=== PATIENT | female | born 1960 | race Caucasian/White ===

== ENCOUNTER 2024-11-21 12:17 | Outpatient (CLI) | payer OTHER, SELFPAY ==
--- OUTSIDE RECORDS SUMMARY | 2024-11-21 13:48 | XMS_ITS | Encounter Summary ---
Author Organization [facility] Address [address] [place] [address] Care Team Providers Care Cellophane Casting Machine Repairer Name Role Phone Justin Jacinto MD Primary Care Provider [phone] Justin Jacinto MD Primary Care Provider [phone] Justin Jacinto MD Primary Care Provider [phone] Mirella Strickland MD Primary Care Provide r Justin Kessler Primary Care Provider [phone] Miscellaneous, Not In File Unavailable Unava ilable Encounter Details Date Type Department Care Team (Late st Contact Info) Description 05/14/2011 Orders Only [facility] [place] Health Information Management [address] [place] [address] Justin Jacinto MD [address] [place] [address] [place] [address] Social History Tobacco Use Types Packs/Day Years Used Date Smoking Tobacco: Never Assessed Comments Unknown Sex and Gender Information Value Date Recorded Sex Assigned at Not on file 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 Gender Identity Not on file Sexual Orientation Not on file documented as of this encounter Plan of Treatment Not on file documented as of this encounter Procedures Procedure Name Priority Date/Time Associated Diagnosis Comments COLONOSCOPY Routine 05/14/2011 documented in this encounter Results * Colonoscopy (05/14/2011) Anatomical Region Laterality Modality Other us Historical Provider ENDOSCOPY PROCEDURES Munira l Result documented in this encounter Visit Diagnoses Not on filedocumented in this encounter Additional Health Concerns Infection Onset Date Last Indicated Resolved Time COVID: Suspected 03/19/2023 03/19/2023 03/19/2023 6:36 PM CDT documented as of this encounter Care Teams Cellophane Casting Machine Repairer Relationship Specialty Start Date End Date Justin Jacinto MD PCP - General 09/03/16 12/09/21 Justin Jacinto MD PCP - General 07/08/06 09/02/16 Justin Jacinto MD [address] [place] [address] PCP - General 12/10/21 12/22/21 Mirella Strickland MD [address] [facility] [place] [address] PCP - General Family Medicine 12/23/21 03/16/23 Justin Kessler PA [address] [place] [address] PCP - General Family Practice 03/17/23 Miscellaneous, Not In File 10/20/24 documented as of this encounter
--- OUTSIDE RECORDS SUMMARY | 2024-11-21 13:48 | XMS_ITS | Clinical Summary ---
Author Organization [facility] Address [address] [place] [address] Phone Care Team Providers Care Spanner Operator Name Role Phone Justin Jacinto MD Primary Care Provider [phone] Allergies No known active allergies Medications otherIndications :phyzix multi vitamin by Other route. Active Probiotic Product (PROBIOTIC DAILY PO) Take by mouth daily. Active AZO-CRANBERRY PO Take by mouth as needed. Active Calcium Carbonate Antacid (CALCIUM CARBONATE PO) Take 200 Units by mouth daily. Active Cholecalciferol (VITAMIN D3 PO) Take by mouth. Active Cyanocobalamin (B-12 PO) Take by mouth. Active famotidine (PEPCID) 20 MG Tablet Take 40 mg by mouth daily. Active sertraline (ZOLOFT) 100 MG Tablet daily. 04/09/2021 Active methylphenidate (RITALIN) 5 MG Tablet Take 5 mg by mouth 2 times daily. 12/23/2021 Active omeprazole (PriLOSEC) 20 MG CAPSULE DELAYED RELEASEIndicatio ns:Gastroesophag eal reflux disease, unspecified whether esophagitis present TAKE 1 CAPSULE BY MOUTH 2 TIMES DAILY. TAKE 30 MINUTES BEFORE A MEAL WITH PROTEIN. 180 Capsule 04/22/2022 Active Active Problems Problem Noted Date Diagnosed Date Gastroesophageal reflux disease 05/25/2021 Alternating constipation and diarrhea 05/25/2021 Diverticulosis 05/25/2021 Immunizations Immunization Administration Dates Next Due Influenza Vaccine, Quadrivalent, PF 04/06,05/27/2020,03/05/2019,2016 Influenza, recombinant, trivalent, PF 04/30/2014 TD VACCINE 08/14/1996 Family History Medical History Relation Name Comments Diabetes Brother Hypertension Brother Hypertension Father Cancer Maternal Aunt breast Diabetes Mother Hypertension Mother Cancer Sister breast Relation Name Status Comments Brother Father Alive Maternal Aunt Mother Sister Social History Tobacco Use Types Packs/Day Years Used Date Smoking Tobacco: Former Cigarettes Q uit: 10/20/1970 Smokeless Tobacco: Never Tobacco Cessation:Counseling Given: No Comments:only smoked a few years mild Alcohol Use Standard Drinks/Week Comments Yes 0 (1 standard drink = 0.6 oz pur e alcohol) Occassional Sexually Active Control Partners Comments Not Currently Comments No Sex and Gender Information Value Date Recorded Sex Assigned at Not on file Legal Sex Female 7:32 PM CDT Gender Identity Not on file Sexual Orientation Not on file Occupation Industry Job Start Date Job End Date [employer] Not on file Not on file Not on file Last Filed Vital Signs Vital Sign Reading Time Taken Comments Blood Pressure 120/66 03/24/2022 2:52 PM CDT Pulse 81 03/24/2022 2:52 PM CDT Temperature 37.3 C (99.1 F) 03/24/2022 2:52 PM CDT Respiratory Rate 20 03/24/2022 2:52 PM CDT Oxygen Saturation 98% 03/24/2022 2:52 PM CDT Inhaled Oxygen Concentration - - Weight 63 kg (139 lb) 03/24/2022 2:52 PM CDT Height 160 cm (5' 3) 07/10/2021 11: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 Body Mass Index 24.62 07/10/2021 11: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 Plan of Treatment Health Maintenance Due Date Last Done Comments Hepatitis C Virus (HCV) Screening 1960 TdaP Immunization 1960 Cologuard 2005 Pneumococcal Immunization (50+ years) (1 of 1 - PCV) 2010 Zoster Immunization (1 of 2) 2010 Immunochemical Fecal Occult Blood 06/11/2020 06/11/2019 SARS-COV-2 Immunization ( season) 2024 01/26/2021, 01/08/2021 Influenza Immunization (Season Ended) 2025 04/20/2021, 05/27/2020, 03/05/2019, Additional history exists Colonoscopy 07/27/2031 07/27/2021, 10/27/2017 Colorectal Cancer Screening 07/27/2031 Respiratory Syncytial Virus (RSV) Immunization (Adult) (1 - 1-dose 75+ series) 09/17/2035 DTaP/Tdap/Td Immunization Discontinued 08/14/1996 Cervical Cancer Screening (CCS) Discontinued Pap Smear Discontinued 06/11/2019 HPV/Cotest Discontinued Hepatitis B Immunization Aged Out No longer eligible based on patient's age to complete this topic Human Papillomavirus (HPV) Immunization Aged Out No longer eligible based on patient's age to complete this topic Meningococcal Immunization (ACWY) Aged Out No longer eligible based on patient's age to complete this topic Rotavirus Immunization Aged Out No lo nger eligible based on patient's age to complete this topic Insurance [facility] Care Teams Spanner Operator Relationship Specialty Start Date End Date Justin Jacinto MD [address] [place] [address] PCP - General Internal Medicine 10/27/17
--- OUTSIDE RECORDS SUMMARY | 2024-11-21 13:48 | XMS_ITS | Encounter Summary ---
Author Organization [facility] Address [address] [place] [address] Care Team Providers Care Principal Ios Developer Name Role Phone Justin Jacinto MD Primary Care Provider [phone] Justin Jacinto MD Primary Care Provider [phone] Mirella Strickland MD Primary Care Provide r Justin Kessler Primary Care Provider Miscellaneous, Not In File Unavailable Unava ilable Encounter Details Date Type Department Care Team (Late st Contact Info) Description 11/16/2019 Telephone [facility] [address] [place] [id number] Apolonia Crawford, RT Social History Tobacco Use Types Packs/Day Years Used Date Smoking Tobacco: Never Smokeless Tobacco: Never Alcohol Use Standard Drinks/Week Comments Yes 0 (1 standard drink = 0.6 oz pur e alcohol) PHQ-2 Answer Date Recorded PHQ-2 Score 0 01/26/2019 Comments No Sex and Gender Information Value Date Recorded Sex Assigned at Not on file 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 Gender Identity Not on file Sexual Orientation Not on file documented as of this encounter Plan of Treatment Not on file documented as of this encounter Visit Diagnoses Not on filedocumented in this encounter Additional Health Concerns Infection Onset Date Last Indicated Resolved Time COVID: Suspected 03/19/2023 03/19/2023 03/19/2023 6:36 PM CDT documented as of this encounter Care Teams Principal Ios Developer Relationship Specialty Start Date End Date Justin Jacinto MD PCP - General 09/03/16 12/09/21 Justin Jacinto MD [address] [address] [place] [address] PCP - General 12/10/21 12/22/21 Mirella Strickland MD [address] [facility] [place] [address] PCP - General Family Medicine 12/23/21 03/16/23 Justin Kessler PA [address] [place] [address] PCP - General Family Practice 03/17/23 Miscellaneous, Not In File 10/20/24 documented as of this encounter
--- OUTSIDE RECORDS SUMMARY | 2024-11-21 13:48 | XMS_ITS | Encounter Summary ---
Author Organization [facility] Address [address] [place] [address] Care Team Providers Care Safe Technician Name Role Phone Justin Kessler Primary Care Provider [phone] Miscellaneous, Not In File Unavailable Unava ilable Encounter Details Date Type Department Care Team (Late st Contact Info) Description 11/21/2024 Telephone [facility] [address] [place] [address] Mariela Martin Social History Tobacco Use Types Packs/Day Years Used Date Smoking Tobacco: Never Smokeless Tobacco: Never Alcohol Use Standard Drinks/Week Comments Yes 0 (1 standard drink = 0.6 oz pur e alcohol) occasional AUDIT-C Answer Date Recorded Q1: How often do you have a drink containing alc ohol? Monthly or less 03/28/2023 Average Number of Drinks Not on file 023 Frequency of Binge Drinking Not on file 03/07 PHQ-2 Answer Date Recorded PHQ-2 Total Score (If total score is 3 or more points, staff should administer the PHQ-9) 0 01/27/2022 Personal Safety Answer Date Recorded Have you ever been in or are you currently in a harmful physical or emotional relationship or is someone making you feel afraid or unsafe? 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 documented in this encounter Plan of Treatment Not on file documented as of this encounter Visit Diagnoses Not on filedocumented in this encounter Care Teams Safe Technician Relationship Specialty Start Date End Date Justin Kessler PA [address] [place] [address] PCP - General Family Practice 03/17/23 Miscellaneous, Not In File 10/20/24 documented as of this encounter
--- OUTSIDE RECORDS SUMMARY | 2024-11-21 13:48 | XMS_ITS | Data Portability ---
Author Organization [facility] Address [address] [place] [address] Care Team Providers Care Paid Search Analyst Name Role Phone DAVIE KESSLER Primary Care Provider Assessment No assessment recorded. Plan of Treatment Reminders Order Date Submit Date Provider Last Modified By Organization Details Last Modified Time Details Appointments None recorded. Lab urinalysis, dipstick 2024 025 [place] In-Office Order, Internal Use Only DO Not Attach Compendium DO Not Attach Compendium, Do Not Delete/merge, [id number] 15:47:34 influenza virus A + B + SARS-CoV-2 (COVID19) Ag panel, rapid IA, upper respiratory specimen 2023 024 [place] In-Office Order, Internal Use Only DO Not Attach Compendium DO Not Attach Compendium, Do Not Delete/merge, [id number] 14:29:13 rapid strep group A, throat 2023 024 [facility] In-Office Order, Internal Use Only DO Not Attach Compendium DO Not Attach Compendium, Do Not Delete/merge, [id number] 14:25:50 Referral None recorded. Procedures None recorded. Surgeries None recorded. Imaging None recorded. Medication Orders Macrobid 100 mg capsule 2024 025 [facility] [id number] In [facility], [address], [place], [place], [id number], 18:28:50 neomycin-po lymyxin-hyd rocort 3.5 mg-10,000 unit/mL-1 % ear drops,susp 2024 025 HOLLI [place] [address] In [facility], [address] [place], [place], [id number], 5 18:28:44 azithromyci n 500 mg tablet 2023 025 HOLLI [place] [address] In [facility], [address] [place], [place], [id number], 5 15:19:58 amoxicillin 875 mg tablet 2023 024 ludy QUEVEDO [address] In [facility], [address], [place], [place], [id number], 4 14:04:39 Patient TargetsNo targets recorded. Patient Instructions Encounter Date Encounter Id Patient Instructions Last Modified By Organization Details Last Modified Time 04/17/2024 [id number] A healthy lifestyle: care instructions jnanney Not available 04/17/2024 19:17:37 06/05/2024 [id number] sore throat: car e instructions jnanney Not available 06/05/2024 14:25:48 A healthy lifestyle: care instructions jnanney Not available 06/05/2024 14:25:49 Reason for Referral None Reported. Results Created Date Observation Date Name Description Value Unit Range Abnormal Flag Note LastModifiedBy Organization Detail LastModifiedTime 06/05/2006/05/2024 influ indra virus A + B + SARS- CoV-2 (COVI D19) Ag panel , rapid IA, upper respi rator y speci men Flu A negati ve Not Available In-Office Order Internal Use Only DO Not Attach Compendium DO Not Attach Compendium, Do Not Delete/merge, [id number] 06/05/2024 14:04:59 06/05/20 24 06/05/2024 influ indra virus A + B + SARS- CoV-2 (COVI D19) Ag panel , rapid IA, upper respi rator y speci men Flu B negati ve Not Available In-Office Order Internal Use Only DO Not Attach Compendium DO Not Attach Compendium, Do Not Delete/merge, [id number] 06/05/2024 14:04:59 06/05/20 24 06/05/2024 influ indra virus A + B + SARS- CoV-2 (COVI D19) Ag panel , rapid IA, upper respi rator y speci men Rapid SARS CoV 2 Ag, QL IA, respiratory specimen negati ve Not Available In-Office Order Internal Use Only DO Not Attach Compendium DO Not Attach Compendium, Do Not Delete/merge, [id number] 06/05/2024 14:04:59 06/05/20 24 06/05/2024 rapid strep group A, throa t Strep negati ve Not Available In-Office Order Internal Use Only DO Not Attach Compendium DO Not Attach Compendium, Do Not Delete/merge, [id number] 06/05/2024 14:05:13 09/04/19 25 09/03/2024 urina lysis , dipst ick Leukocytes Negati ve Not Available In-Office Order Internal Use Only DO Not Attach Compendium DO Not Attach Compendium, Do Not Delete/merge, [id number] 09/03/2024 15:32:31 09/04/19 25 09/03/2024 urina lysis , dipst ick Nitrite negati ve Not Available In-Office Order Internal Use Only DO Not Attach Compendium DO Not Attach Compendium, Do Not Delete/merge, [id number] 09/03/2024 15:32:31 09/04/19 25 09/03/2024 urina lysis , dipst ick Urobilinogen .2 Not Available In-Of fice Order Internal Use Only DO Not Attach Compendium DO Not Attach Compendium, Do Not Delete/merge, [id number] 09/03/2024 15:32:31 09/04/19 25 09/03/2024 urina lysis , dipst ick Protein Negati ve Not Available In-Office Order Internal Use Only DO Not Attach Compendium DO Not Attach Compendium, Do Not Delete/merge, [id number] 09/03/2024 15:32:31 09/04/19 25 09/03/2024 urina lysis , dipst ick pH 6.0 Not Available In-Office Order Internal Use Only DO Not Attach Compendium DO Not Attach Compendium, Do Not Delete/merge, 09/03/2024 15:32:31 09/04/1909/03/2024 urina lysis , dipst ick Blood Small Not Available In-Office Order Internal Use Only DO Not Attach Compendium DO Not Attach Compendium, Do Not Delete/merge, [facility] 09/03/2024 15:32:31 09/04/1909/03/2024 urina lysis , dipst ick Specific [place] 1.030 Not Available In-Off ice Order Internal Use Only DO Not Attach Compendium DO Not Attach Compendium, Do Not Delete/merge, 09/03/2024 15:32:09/04/1909/03/2024 urina lysis , dipst ick Ketone Negati ve Not Available In-Office Order Internal Use Only DO Not Attach Compendium DO Not Attach Compendium, Do Not Delete/merge, 09/03/2024 15:32:09/04/19 25 09/03/2024 urina lysis , dipst ick Bilirubin Small Not Available In-Offic e Order Internal Use Only DO Not Attach Compendium DO Not Attach Compendium, Do Not Delete/merge, 09/03/2024 15:32:09/04/1909/03/2024 urina lysis , dipst ick Glucose Negati ve Not Available In-Office Order Internal Use Only DO Not Attach Compendium DO Not Attach Compendium, Do Not Delete/merge, [id number] 09/03/2024 15:32:31 09/04/1909/03/2024 urina lysis , dipst ick Appearance Clear Not Available In-Offi ce Order Internal Use Only DO Not Attach Compendium DO Not Attach Compendium, Do Not Delete/merge, 09/03/2024 15:32:09/04/19 25 09/03/2024 urina lysis , dipst ick Color Yellow Not Available In-Office Order Internal Use Only DO Not Attach Compendium DO Not Attach Compendium, Do Not Delete/merge, 09/03/2024 15:32:09/18/19 25 09/17/2024 MAMMO , scree sanjay, digit al, bilat eral No observ ation record ed. [address], [place], [address], 09/17/2024 16:31:03 10/20/19 25 10/19/2024 CT, cervi mal spine , w/o contr ast No observ ation record ed. [address] , [place], [address], 10/22/2024 08:57:11 10/20/19 25 10/19/2024 CT, chest + abdom en + pelvi s, w/ contr ast No observ ation record ed. [address] , [place], [address], 10/22/2024 08:57:36 10/20/19 25 10/19/2024 CT, head, w/o contr ast No observ ation record ed. [address] , [place], [address], 10/22/2024 08:58:34 10/21/19 25 10/20/2024 CT, head, w/o contr ast No observ ation record ed. [address], [place], [address], 10/22/2024 09:07:12 10/21/19 25 10/20/2024 XR, shoul juan No observ ation record ed. [address], [place], [address], 10/22/2024 09:07:35 10/21/19 25 10/20/2024 XR, shoul juan No observ ation record ed. [address], [place], [address], 10/22/2024 09:07:49 10/23/19 25 10/19/2024 elect delfino merlos am, routi ne ECG, 12 leads min No observ ation record ed. [email or web address] [address] [place], [address], 10/22/2024 09:08:05 Result Notes None recorded. Problems No Known Problems Procedures Surgical History Date Name Laterality Status Provider Name and Address Organization Details Recorded Time 08/10/19 23 Date of Last Mammogram completed Lisette Mirza MA [facility] 11/15/2023 10:48:22 07/12/19 23 Date of Last Pap Smear completed RASTA Macdonald [facility] 07/12/2022 15:22:59 Tubal Ligation completed Latoya Taylor MA [facility] 04/05/2022 10:06:32 laparoscopy completed Latoya Taylor MA [facility] 04/05/2022 10:06:54 tonsillectomy completed Latoya Taylor MA [facility] 04/05/2022 10:07:04 cholecystectomy completed Latoya Taylor MA [facility] 04/05/2022 10:07:16 Imaging Results None recorded. Procedure Notes None recorded. Medical Equipment None Reported. Allergies No known drug allergies Medications Name Sig Start Date Stop Date Status Note LastModified by Organization Details LastModified Time celecoxib 200 mg capsule TAKE 1 CAPSULE BY MOUTH EVERY DAY 11/14 completed Not Available Not Available Not Available naproxen 375 mg tablet TAKE 1 TABLET BY MOUTH EVERY 12 HOURS NEEDED FOR PAIN 01/22 completed Not Available Not Available Not Available levetiracet am 500 mg tablet Take 1 tablet twice a day by oral route. 11/05 completed Not Available Not Available Not Available hydrocodone 5 mg-acetamin ophen 325 mg tablet TAKE 1 TABLET BY MOUTH EVERY 6 HOURS NEEDED FOR PAIN 03/05 completed Not Available Not Available Not Available famotidine 40 mg tablet TAKE 1 TABLET BY MOUTH EVERY DAY AT NIGHT 04/05 completed Not Available Not Available Not Available methylpheni date 5 mg tablet Take 1 tablet twice a day by oral route. active Not Available Not Available No t Available alendronate 70 mg tablet TAKE ONE TABLET BY MOUTH ONCE WEEKLY ON AN EMPTY STOMACH. SIT UP FOR 2 HOURS AFTER DOSING 04/05 completed Not Available Not Available Not Available sertraline 100 mg tablet TAKE ONE AND ONE-HALF (1 AND 1/2) TABLETS BY MOUTH ONCE DAILY FOR 90 DAYS active Not Available Not Available No t Available penicillin V potassium 500 mg tablet TAKE 1 TABLET BY MOUTH 4 TIMES A DAY 11/14 completed Not Available Not Available Not Available omeprazole 40 mg capsule,del ayed release TAKE 1 CAPSULE BY MOUTH EVERY DAY 06/22 completed Not Available Not Available Not Available amoxicillin 875 mg tablet TAKE 1 TABLET BY MOUTH EVERY 12 HOURS FOR 10 DAYS 06/05 completed Not Available Not Available Not Available dicyclomine 20 mg tablet TAKE 1 TABLET BY MOUTH 4 TIMES A DAY. 04/05 completed Not Available Not Available Not Available baclofen 10 mg tablet 11/14 completed Not Available Not Available Not Available cephalexin 500 mg capsule TAKE 1 CAPSULE BY MOUTH TWICE A DAY FOR 10 DAYS 04/05 completed Not Available Not Available Not Available pantoprazol e 40 mg tablet,kait yed release TAKE 1 TABLET BY MOUTH EVERY DAY 03/05 completed Not Available Not Available Not Available clotrimazol e 1 % topical solution FOR FUNGAL EXTERNAL OTITIS PUT 4 DROPS IN EACH EAR CANAL WITH EAR UP TOWARDS CEILING TWICE A DAY 10/23 completed Not Available Not Available Not Available omeprazole 20 mg capsule,del ayed release TAKE 1 CAPSULE BY MOUTH 2 TIMES DAILY. TAKE 30 MINUTES BEFORE A MEAL WITH PROTEIN. 04/05 completed Not Available Not Available Not Available amoxicillin 250 mg capsule TAKE 1 CAPSULE BY MOUTH EVERY 8 HOURS UNTIL FINISHED 11/14 completed Not Available Not Available Not Available ergocalcife rol (vitamin D2) 1,250 mcg (50,000 unit) capsule TAKE 1 CAPSULE BY MOUTH EVERY WEEK active Not Available Not Available No t Available estradiol 0.01% (0.1 mg/gram) vaginal cream INSERT 1/2 GRAM VAGINALLY EVERY NIGHT AT BEDTIME 3 TIMES PER WEEK 04/05 completed Not Available Not Available Not Available sertraline 50 mg tablet Take 1 tablet every day by oral route. 06/08 completed Not Available Not Available Not Available amoxicillin 875 mg-potassiu m clavulanate 125 mg tablet TAKE 1 TABLET BY MOUTH TWICE A DAY FOR 10 DAYS 04/05 completed Not Available Not Available Not Available neomycin-po lymyxin-hyd rocort 3.5 mg-10,000 unit/mL-1 % ear drops,susp INSTILL 4 DROPS INTO AFFECTED EAR(S) 3 TIMES A DAY 10/23 completed Not Available Not Available Not Available azithromyci n 500 mg tablet TAKE 1 TABLET BY MOUTH EVERY DAY FOR 3 DAYS 09/03 completed Not Available Not Available Not Available bupropion HCl XL 300 mg 24 hr tablet, extended release TAKE 1 TABLET BY MOUTH EVERY DAY IN THE MORNING active Not Available Not Available No t Available bupropion HCl XL 150 mg 24 hr tablet, extended release TAKE 1 TABLET BY MOUTH EVERY DAY IN THE MORNING 11/14 completed Not Available Not Available Not Available nitrofurant oin monohydrate /macrocryst als 100 mg capsule TAKE 1 CAPSULE BY MOUTH EVERY 12 HOURS FOR 10 DAYS 10/23 completed Not Available Not Available Not Available ranolazine ER 500 mg tablet,exte nded release,12 hr TAKE 1 TABLET BY MOUTH TWICE A DAY 04/05 completed Not Available Not Available Not Available Suprep Bowel Prep Kit 17.5 gram-3.13 gram-1.6 gram oral solution PLEASE SEE ATTACHED FOR DETAILED DIRECTION S 04/05 completed Not Available Not Available Not Available Vitals Date Recorded Body height Body mass index (BMI) Body weight Oxygen saturation Oxygen saturation in Arterial blood by Pulse oximetry Heart rate Respiratory rate Systolic blood pressure Diastolic blood pressure Provider Name and Address Organization Details Last Updated DateTime 5 160.02 cm 26.2 kg/m2 03425.6 7 g 97 % 97 % 91 /min 16 /min 128 mm[Hg] 84 mm[Hg] Luly Hutchinson MA [facility] 5 15:21:59 Date Recorded Body height Body mass index (BMI) Body weight Oxygen saturation Oxygen saturation in Arterial blood by Pulse oximetry Heart rate Systolic blood pressure Diastolic blood pressure Provider Name and Address Organization Details Last Updated DateTime 5 160.02 cm 26.3 kg/m2 18962.4 7 g 95 % 95 % 85 /min 118 mm[Hg] 82 mm[Hg] Lisette Mirza MA [place] [facility] 5 18:33:44 Date Recorded Body height Body mass index (BMI) Body weight Oxygen saturation Oxygen saturation in Arterial blood by Pulse oximetry Heart rate Respiratory rate Systolic blood pressure Diastolic blood pressure Provider Name and Address Organization Details Last Updated DateTime 5 160.02 cm 26.3 kg/m2 17962.8 3 g 98 % 98 % 90 /min 16 /min 124 mm[Hg] 80 mm[Hg] Luly Hutchinson MA [facility] 5 16:15:42 Date Recorded Body height Body mass index (BMI) Body weight Oxygen saturation Oxygen saturation in Arterial blood by Pulse oximetry Heart rate Systolic blood pressure Diastolic blood pressure Provider Name and Address Organization Details Last Updated DateTime 4 160.02 cm 27.1 kg/m2 78031.3 3 g 97 % 97 % 113 /min 144 mm[Hg] 89 mm[Hg] Awa Solorio MA [facility] 4 19:07:05 Date Recorded Body height Body mass index (BMI) Body weight Oxygen saturation Oxygen saturation in Arterial blood by Pulse oximetry Heart rate Body temperature Systolic blood pressure Diastolic blood pressure Provider Name and Address Organization Details Last Updated DateTime 4 160.02 cm 27.4 kg/m2 64280.0 2 g 98 % 98 % 103 /min 98.5 [degF] 132 mm[Hg] 98 mm[Hg] Awa Solorio MA [facility] 4 14:07:26 Social History Question Answer Notes LastModified by Organizat ion Details LastModified Time Tobacco Smoking Status Never Smoker Latoya Taylor MA [facility] 04/05/2022 10:03:41 Are You Blind Or Do You Have Difficulty Seeing? Yes Glasses Information not available 04/05/2022 What Is Your Level Of Caffeine Consumption? Heavy Information not available 04/05/2022 Are You Deaf Or Do You Have Serious Difficulty Hearing? No Information not available 04/05/2022 What Type Of Diet Are You Following? REGULAR Information not available 04/05/2022 Are There Any Guns Present In Your Home? No Information not available 04/05/2022 What Was The Date Of Your Most Recent Tobacco Screening? 11/05/2024 [email or web address] Information not available 11/05/2024 How Many Children Do You Have? 4 Information not available 04/05/2022 What Is Your Relationship Status? Information not available 04/05/2022 Do You Use Your Seat Belt Or Car Seat Routinely? Yes Information not available 04/05/2022 Do You Have Smoke And Carbon Monoxide Detectors In Your Home? Yes Information not available 04/05/2022 Are You Passively Exposed To Smoke? No Information not available 04/05/2022 Has Tobacco Cessation Counseling Been Provided? No [email or web address] Information not available 06/22/2022 Sex: Unknown Functional Status Question Answer Note LastModified by Organizat ion Details LastModified Time Do you use any illicit or recreational drugs? No Information not available 04/05/2022 Do you or have you ever used any other forms of tobacco or nicotine? No Information not available 04/05/2022 What is your level of alcohol consumption? Occasional Information not available 04/05/2022 Are you currently employed? Yes Information not available 04/05/2022 Are you able to care for yourself? Yes Information not available 04/05/2022 What is your occupation? [employer] Information not available 04/05/2022 What is your exercise level? None Information not available 04/05/2022 Mental Status Question Answer Note LastModified by Organizat ion Details LastModified Time Do you feel stressed (tense, restless, nervous, or anxious, or unable to sleep at night)? [id number] stressed from work Information not available 04/05/2022 Family History Relationship Description Onset Age of this Age Resolved Age Notes LastModified by Organization Details LastModified Time Father No current problems or disability [email or web address] Not available 06/22 18:02:19 Mother No current problems or disability [email or web address] Not available 06/22 18:02:19 Medical History Condition Response Coronary Artery Disease N Other N High Blood Pressure N Atrial Fibrillation N Thyroid Problems N Kidney or Bladder Problems N GI Problems N Depression N COPD N Blood Clots N Skin Problems N Eating Disorder N Anemia N Heart Attack (OK) N Anxiety Disorder N Diabetes N Muscle, Joint, or Bone Problems N Seizures/Epilepsy N Acid Reflux (GERD) N Cancer N Stroke N Asthma N Allergies N ADHD N Substance Abuse N High Cholesterol N Hepatitis N Liver Disease N Schizophrenia N Headaches N Heart Failure N Osteoporosis N Gynecological History Statement/Question Response Date of Last Pap Smear 07/12/2022 Date of Last Mammogram 08/09/2022 Date of LMP Obstetrics History GPAL:G 0 P 0 0 0 0 Immunizations Vaccine Type Date Status Note Provider Nam e and Address Organization Details Recorded Time Influenza, split virus, quadrivalent, PF 9 completed Lisette Mirza [place], [place] [facility] 04/05/2022 10:36:23 Influenza, split virus, quadrivalent, PF 0 completed Lisette Mirza [place], [place] [facility] 04/05/2022 10:36:23 Influenza, split virus, quadrivalent, PF 1 completed Lisette Mir[place] [facility] 04/05/2022 10:36:23 COVID-19, mRNA, LNP-S, PF, 30 mcg/0.3 mL dose 1 completed Lisette Mir[place], [place] [facility] 04/05/2022 10:36:23 COVID-19, mRNA, LNP-S, PF, 30 mcg/0.3 mL dose 1 completed Lisette Mir[place], [place] [facility] 04/05/2022 10:36:23 zoster recombinant 5 completed Lisette Mirza [place], [place] [facility] 10/22/2024 09:23:45 Influenza, split virus, quadrivalent, PF 7 completed Not Available [facility] 11/05/2024 16:05:45 pneumococcal polysaccharide PPV23 3 completed Not Available [facility] 11/05/2024 16:05:45 Tdap 4 completed Not Available [facility] 11/05/2024 16:05:45 Influenza, split virus, quadrivalent, PF 2 completed Lisette Mirza MA null, [facility] 04/05/2022 11:30:19 Influenza, split virus, quadrivalent, PF 3 completed Awa Solorio MA null, [facility] 03/22/2023 19:36:27 Past Encounters Encounter ID Performer Location Encounter Start Date Encounter Closed Date Diagnosis/Indication Diagnosis SNOMED-CT Code Diagnosis ICD10 Code Diagnosis Note [id number] Davei Kessler PA-C [facility] [address] [place] [address] 04/05/2022 09:49:14 04/05/2022 11:19:12 Adult health examination 548299610 Z00.00 Family his tory of diabetes mellitus 481131933 Z83.3 Dysuria 10829401 R30.0 Administra tion of influenza vaccine 24290427 Z23 [id number] Davie Kessler PA-C [facility] [address] [place] [address] 06/22/2022 17:59:56 06/23/2022 15:00:20 Recurrent falls 185465369 R29.6 Attention deficit hyperactivity disorder, 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 014728582 F41.8 Overweight 376274334 E66 .3 [id number] Davie Kessler PA-C [facility] [address] [place] [address] 07/12/2022 15:12:04 07/12/2022 16:06:20 Long-term drug therapy 849497608 Z79.899 Post-acute COVID-19 1119 998484 U09.9 Attention deficit hyperactivity disorder, predominantly inattentive type 94669531 F90.0 [id number] Davie Kessler PA-C [facility] [address] [place] [address] 07/28/2022 11:50:56 07/28/2022 12:38:14 Acute maxillary sinusitis 65023898 J01.01 Overweight 722671065 E66 .3 [id number] Davie Kessler PA-C [facility] [address] [place] [address] 09/24/2022 16:27:55 09/27/2022 12:14:19 Fatigue 94466305 R53.83 Generalize d anxiety disorder 73288343 F41.1 [id number] Davie Kessler PA-C [facility] [address] [place] [address] 03/07/2023 11:59:10 03/08/2023 14:15:31 Albumin below reference range 858079811 R77.0 Increased frequency of urination 044013625 R35.0 Mixed anxi ety and depressive disorder 278655544 F41.8 [id number] Davie Kessler PA-C [facility] [address] [place] [address] 03/22/2023 18:35:36 03/29/2023 15:36:00 Costal chondritis 95178984 M94.0 Administra tion of influenza vaccine 35377298 Z23 [id number] Davie Kessler PA-C [facility] [address] [place] [address] 06/24/2023 14:53:09 06/27/2023 16:17:24 Neck pain 97838605 M54.2 Overweight 567957100 E66 .3 [id number] Davie Kessler PA-C [facility] [address] [place] [address] 07/08/2023 15:54:50 07/12/2023 14:41:53 Hypoalbuminemia 573903279 E88.09 [id number] Gary Gifford MD [facility] [address] [place] [address] 11/15/2023 10:21:11 11/16/2023 09:18:15 Closed fracture of bone of knee joint 865717214 S82.892A Overweight 687001302 E66 .3 [id number] Davie Kessler PA-C [facility] [address] [place] [address] 01/23/2024 15:24:29 01/24/2024 08:17:34 Adult attention deficit hyperactivity disorder 947708457 F90.0 Overweight 448926584 E66 .3 [id number] Davie Kessler PA-C [facility] [address] [place] [address] 03/05/2024 16:10:22 03/07/2024 15:15:31 Complex laceration of scalp 401347248 S01.01XD [id number] Gary Gifford MD [facility] [address] [place] [address] 03/26/2024 14:51:32 04/02/2024 10:49:25 Laceration of forehead 641756577 S01.81XD sutures removed Overweight 534284890 E66 .3 [id number] Gary Gifford MD [facility] [address] [place] [address] 04/17/2024 19:02:01 04/18/2024 09:21:58 Middle ear effusion 6174076515 H74.8X1 Overweight 638022848 E66 .3 [id number] Gary Gifford MD [facility] [address] [place] [address] 06/05/2024 13:51:38 06/08/2024 10:34:43 Sore throat 157348775 J02.9 Overweight 713468771 E66 .3 Acute bron chitis with bronchospasm 95844334 J20.8 [id number] Gary Gifford MD [facility] [address] [place] [address] 09/03/2024 15:15:27 09/04/2024 08:45:48 Urinary symptoms 999413837 R30.0 Acute otitis externa 302 03467 H60.513 Body mass index 20-24 - normal 047604589 Z68.24 [id number] Gary Gifford MD [facility] [address] [place] [address] 10/23/2024 17:57:01 10/24/2024 10:42:25 Traumatic brain injury 595211737 S06.9X1A Overweight in adulthood with body mass index of 25 or more but less than 30 063983656 Z68.26 [id number] Gary Gifford MD [facility] [address] [place] [address] 11/05/2024 16:05:18 11/06/2024 10:19:01 Hemorrhage into subarachnoid space of neuraxis 527658537 I60.9 Intermittent vertigo 103 888660 R42 Overweight in adulthood with body mass index of 25 or more but less than 30 088888322 E66.3 Z68.26 Health Concerns Section Related Observation LastModified by Organization Detai ls LastModified Time None Recorded Concern Status LastModified by Organization Details LastModified Time None Recorded Advance Directives Directive None Recorded Payers Insurance Date Sequence Insurance Name Policy Number Policy Spear Covered Member ID Spear Member ID Guarantor Name 11/04/[address] [facility] [facility] ([facility]) [id number] Bouchra Phan Maximino [phone] Bouchra Stanton Notes Date Note Type Note Provider Name and Address Organization Details Recorded Time 04/17/2024 text/html rt ear pain for 2 weeks... Davie Kessler PA-C Attn: [address] [place], [address], [facility] 04/17/2024 19:18:16 06/05/2024 text/html Uri symptoms.. cough sinus etc...rash... Davie Kessler PA-C Attn: [address] [place], [address], [facility] 06/05/2024 14:28:14 09/03/2024 text/html uti symptoms..also having ear pain was diagnosed with fungal infection in ear canals..wellington dheeraj Davie Kessler PA-C Attn: [address] [place], [address], [facility] 09/03/2024 15:49:23 10/23/2024 text/html fell over the railing about 8 feet to thre floor...no memory..went to ER resulting brain bleed...has follow up with neurosurgeon..bryan s some residual dizziness... Davie Kessler PA-C Attn: [address] [place], [address], [facility] 10/23/2024 18:54:53 11/05/2024 text/html had a fall on may 15..down a stairwell..went to [place] eventually..suba rachnoid bleed ...has CT upcoming and neuro after.... Davie Kessler PA-C Attn: [address] [place], [address], [facility] 11/05/2024 16:29:37 OBGyn Episode No OBEpisode recorded.
--- OUTSIDE RECORDS SUMMARY | 2024-11-21 13:48 | XMS_ITS | Encounter Summary ---
Author Organization [facility] Address [address] [facility] [place] [address] Phone Care Team Providers Care Hole Filler Name Role Phone Justin Jacinto MD Primary Care Provider Reason for Visit * Reason Comments Medication Refill Encounter Details Date Type Department Care Team (Late st Contact Info) Description 08/15/2021 Refill [facility] - Gastroenterology - [address] [place] [id number] Christina Talbert Rohini, PAC [address] [place] [address] Medication Refill Social History Tobacco Use Types Packs/Day Years Used Date Smoking Tobacco: Former Cigarettes Q uit: 10/20/1970 Smokeless Tobacco: Never Comments:only smoked a few y ears mild Alcohol Use Standard Drinks/Week Comments Yes [...] Industry Job Start Date Job End Date [employer] Not on file Not on file Not on file COVID-19 Exposure Response Date Recorded In the last month, have you been in contact with someone who was confirmed or suspected to have Coronavirus / COVID-19? No / Unsure 07/27/2021 11:35 AM DIAL MAKER documented as of this encounter Miscellaneous Notes * Telephone Encounter - Frances Cartwright RN - 08/17/2021 1:48 PM CDT [facility] for pediatric and adult patients. documented in this encounter Plan of Treatment Not on file documented as of this encounter Visit Diagnoses Diagnosis Gastroesophageal reflux disease, unspecified whether esophagitis present documented in this encounter Additional Health Concerns Infection Onset Date Last Indicated Resolved Time COVID - 19 03/24/2022 03/24/2022 04/03/2022 12:1 6 AM CDT COVID - 19 Confirmed 03/24/2022 03/24/2022 022 12:16 AM DIAL MAKER documented as of this encounter Care Teams Hole Filler Relationship Specialty Start Date End Date Justin Jacinto MD [address] [place] [id number] PCP - General Internal Medicine 10/27/17 documented as of this encounter
--- OUTSIDE RECORDS SUMMARY | 2024-11-21 13:48 | XMS_ITS | Encounter Summary ---
Author Organization [facility] Address [address] [place] [address] Phone Care Team Providers Care Therapist Respiratory Name Role Phone Justin Jacinto MD Primary Care Provider [phone] Justin Jacinto MD Primary Care Provider [phone] Mirella Strickland MD Primary Care Provide r Justin Kessler Primary Care Provider [phone] Miscellaneous, Not In File Unavailable Unava ilable Encounter Details Date Type Department Care Team (Late st Contact Info) Description 10/04/2017 Orders Only [facility] ProviderMarco MD [facility] [place] [address] Social History Tobacco Use Types Packs/Day Years Used Date Smoking Tobacco: Never Alcohol Use Standard Drinks/Week Comments Yes 0 (1 standard drink = 0.6 oz pur e alcohol) Comments No Sex and Gender Information Value Date Recorded Sex Assigned at Not on file Legal Sex Female 4:25 PM [employer] Gender Identity Not on file Sexual Orientation Not on file documented as of this encounter Plan of Treatment Not on file documented as of this encounter Procedures Procedure Name Priority Date/Time Associated Diagnosis Comments DISCHARGE LABORATORY CUMULATIVE REPORT 10/04/2017 12:00 AM CDT documented in this encounter Results * DISCHARGE LABORATORY CUMULATIVE REPORT (10/04/2017 12:00 AM CDT) Narrative 10/04/2017 12:00 AM CDT Ordered by an unspecified provider. us Historical Provider LAB BLOOD ORDERABLES Munira l Result documented in this encounter Visit Diagnoses Not on filedocumented in this encounter Additional Health Concerns Infection Onset Date Last Indicated Resolved Time COVID: Suspected 03/19/2023 03/19/2023 03/19/2023 6:36 PM CDT documented as of this encounter Care Teams Therapist Respiratory Relationship Specialty Start Date End Date Justin Jacinto MD PCP - General 09/03/16 12/09/21 Justin Jacinto MD [address] [place] [address] PCP - General 12/10/21 12/22/21 Mirella Strickland MD [address] [place] [address] PCP - General Family Medicine 12/23/21 03/16/23 Justin Kessler PA [address] [place] [address] PCP - General Family Practice 03/17/23 Miscellaneous, Not In File 10/20/24 documented as of this encounter
--- OUTSIDE RECORDS SUMMARY | 2024-11-21 13:49 | XMS_ITS | Clinical Summary ---
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 Role Phone Justin Kessler Primary Care Provider [phone] Miscellaneous, Not In File Unavailable Unava ilable Allergies No known active allergies Medications omeprazole (PriLOSEC) 20 mg capsule Take 1 capsule (20 mg total) by mouth daily 05/25/20 21 Active calcium citrate 250 mg calcium tablet tablet Active cholecalciferol (VITAMIN D-3) 2000 unit capsule 0.5 capsules (1,000 Units total) Active vitamin K2 40 mcg tablet Take by mouth Active vitamin B complex capsule Take 1 capsule by mouth daily Active methylphenidate HCl (RITALIN) 5 mg tabletIndications :Attention-Defici t Hyperactivity Disorder Take 1 tablet (5 mg total) by mouth 2 (two) times a day 60 tablet 12/24/19 22 Active sertraline (ZOLOFT) 100 mg tablet Take 1 tablet (100 mg total) by mouth daily 30 tablet 11 04/22/[address] (PROTONIX) 40 mg EC tabletIndications :Gastroesophageal reflux disease, unspecified whether esophagitis present Take 1 tablet (40 mg total) by mouth daily Collaborating physician Manny Calle MD 30 tablet 03/19/20 23 Active baclofen (LIORESAL) 10 mg tabletIndications :Esophageal spasm Take 1 tablet (10 mg total) by mouth 3 (three) times a day Take as directed to treat esophageal spasm. Collaborating physician Manny Calle MD 30 tablet 03/19/20 Active celecoxib (CeleBREX) 200 mg capsule Take by mouth daily 03/22/20 Active acetaminophen 500 mg capsule Take 2 capsules (1,000 mg total) by mouth every 6 (six) hours as needed for pain . Do not exceed 4 grams daily. 10/21/19 Active docusate sodium (COLACE) 100 mg capsuleIndication s:constipation,St ool Softener Take 1 capsule (100 mg total) by mouth 2 (two) times a day 30 capsule 10/21/19 Active levETIRAcetam (KEPPRA) 500 mg tabletIndications :seizure prophylaxis Take 1 tablet (500 mg total) by mouth 2 (two) times a day for 7 days 13 tablet 10/21/19 Active lidocaine (LIDODERM) 5 %Indications:pain Place 1 patch on the skin daily for 12 hours Remove & discard patch within 12 hours or as directed by MD. Apply to right shoulder. 7 patch 10/21/19 Active oxyCODONE (ROXICODONE) 5 mg immediate release tabletIndications :Pain Take 1 tablet (5 mg total) by mouth every 4 (four) hours as needed for pain 15 tablet 10/21/19 Active Active Problems Problem Noted Date Diagnosed Date Subarachnoid bleed 10/20/2024 Esophageal spasm 03/19/2023 Hiatal hernia 03/19/2023 Light headed 01/27/2022 Assessment & Plan (01/27/2022 1:02 PM CDT): Worsening Orthostatics negative Recent labs unremarkable Recently seen cardio and unlikely to be cardiac in nature Likely anxiety and stress induced. Swollen finger 12/23/2021 Assessment & Plan (12/23/2021 11:10 AM CDT): Improved S/p keflex Will hold off on antibiotics as the swelling and redness improved Does not look like a foreign body is present Xray just showed some arthritis Try anti inflammatories for the discomfort rtc if worsening symptoms and can consider a second round of antibiotics Encounter for completion of form with patient Assessment & Plan (12/23/2021 11:11 AM CDT): Will complete forms for disability 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 [place] at [employer] [employer] Encounter for wellness examination 12/23/2021 Assessment & Plan (12/23/2021 11:12 AM CDT): Ordered lipid, hgb a1c, HIV, hep c, TSH, and free t4 Colonoscopy: up to date Pap smear:follows with ob Mammo: up to date F/u in 1 year for annual Dyspnea on exertion 11/30/2021 Overview (11/30/2021): Added automatically from request for surgery [id number] Assessment & Plan (01/27/2022 1:02 PM CDT): Worsening Seen by cardio and unlikely to be caused by the heart Had stress test and other imaging Chest xray ordered. If negative will consider referral to pulmonary Chest pain 11/30/2021 Overview (11/30/2021): Added automatically from request for surgery [id number] Assessment & Plan (12/23/2021 11:08 AM CDT): Likely stress induced Cardiac cath negative, echo unremarkable F/u prn and continue with sertraline for the anxiety Diverticulosis 05/25/2021 Gastroesophageal reflux disease 05/25/2021 Assessment & Plan (12/23/2021 11:07 AM CDT): Restart omeprazole F/u prn Abdominal pain 04/28/2021 Overview (04/28/2021): Added automatically from request for surgery [id number] Assessment & Plan (03/28/2023 2:57 PM CDT): Musculoskeletal pain. Varicose veins of both lower extremities 021 Age-related osteoporosis wit hout current pathological fracture 11/06/2019 Assessment & Plan (12/23/2021 11:06 AM CDT): Stable Continue with calcium and vitamin d Assessment & Plan (12/10/2021 1:19 PM CDT): Stable at this time no fractures but patient is no longer taking fosamax due to dental work and concerns for jaw ostenecrosis Taking vitamin supplement Attention deficit disorder (ADD) in adult 2019 Assessment & Plan (12/23/2021 11:06 AM CDT): Refill ritalin 5mg bid F/u prn BMI 23.0-23.9, adult 10/18/2017 Vitamin D deficiency 10/18/2017 Lumbar disc disease 10/18/2017 Osteopenia 04/27/2017 Overview (12/10/2021): Note: 5-2015 Herpes simplex 10/22/2014 Overview (12/10/2021): Note: + serology for type II Family history of malignant neoplasm of breast 0 10/12/2013 Overview (12/10/2021): Note: sister - dx in her 60's History of cervical dysplasia 10/29/2009 Resolved Problems Problem Noted Date Diagnosed Date Resolved Date Diarrhea 04/28/2021 12/10/2021 Overview (04/28/2021): Added automatically from request for surgery [id number] Other microscopic hematuria 01/12/2021 12/10/2021 Gallbladder polyp 09/25/2019 11/10/2020 Assessment & Plan (09/25/2019 12:19 PM CDT): Minimally symptomatic gallbladder polyp- discussed dietary approach. If worsening of symptoms please notify office. The procedure along with the risks, benefits, and post operative period were discussed with the patient, to which she understands. Will call patient to schedule elective surgery when able due to the hold on elective cases. Patient agrees to treatment plan. Acute suppurative otitis med ia without spontaneous rupture of ear drum 06/21/2016 02/17/20 17 Overview (09/09/2016): Acute suppurative otitis media of left ear without spontaneous rupture of tympanic membrane, recurrence not specified Viral upper respiratory tract infection 06/21/2016 02/16/2017 Overview (09/09/2016): Viral upper respiratory tract infection Acute sinusitis 10/15/2014 02/16/2017 Overview (09/09/2016): Acute sinusitis Abrasion of toe 10/15/2014 02/16/2017 Overview (09/09/2016): Toe abrasion Encounters Date Type Department Care Team Description 11/21/2024 Telephone [facility] [address] [place] [address] Mariela Martin 10/24/2024 Orders Only [facility] Neurosurgery [address] [place] [address] [place] [id number] Rosangela Barros RN Subarachnoid bleed (HCC) (Primary Dx) 10/24/2024 Telephone [facility] Scheduling [address] [place] [address] Juanita Ashley 10/19/2024 10:55 PM CDT - 10/20/2024 7:00 PM CDT Hospital Encounter [address] [phone] Mikhail Farrell MD Vellimana, MD Edwin Perez, Gary Bryant MD Subarachnoid bleed (HCC) (Primary Dx); Closed head injury, subsequent encounter Discharge Disposition: Discharge to home or self care 10/19/2024 10:07 PM CDT - 10/19/2024 11:59 PM CDT Hospital Encounter [facility], Room R Discharge Disposition: Discharge to home or self care 10/19/2024 4:47 PM CDT - 10/19/2024 10:05 PM CDT Emergency [facility] Emergency Department [address] [place] [address] Lars Watson MD Subarachnoid hemorrhage (HCC) (Primary Dx) Discharge Disposition: Discharge to a jail [facility] 10/19/2024 4:31 PM CDT - 10/19/2024 11:59 PM CDT Hospital Encounter [facility] Emergency, Room R Discharge Disposition: Discharge to home or self care from Last 3 Months Immunizations Immunization Administration Dates Next Due Influenza, Quadrivalent, Spl it, Preservative Free, Intramuscular 04/20/2021,05/27/2020,03/05/2019,05/12 Influenza, Split 06/25/2013,06/20/2012 Influenza, Trivalent, Adjuva nted, Intramuscular 04/30/2014 Influenza, Trivalent, Recomb inant, Egg Free, Preservative Free, Antibiotic Free, IM (FLUBLOK) 04/30/2014 Influenza, Unspecified 01/27/2022(Deferr ed: Patient Refused),01/08/2021(Deferred: Patient Refused),02/01/2020(Deferred: Patient Refused),05/18/2018(Deferred: Patient Refused),04/06/2018(Deferred: Patient Refused) Pfizer SARS-CoV-2 Monovalent Vaccination (12+ Yrs) PURPLE 01/26/2021,01/08/2021 Td, adsorbed 08/14/1996 Tdap 02/25/2024 Surgical History Surgery Date Site/Laterality Comments TUBAL LIGATION 06/06/1986 - 06/05/1987 Bilateral tubal ligation OTHER SURGICAL HISTORY 06/06/1976 - 06/05/1977 OVARIAN CYST: SURGERY TONSILLECTOMY Tonsillectomy OTHER SURGICAL HISTORY 06/06/2007 - 06/05/2008 varicsose vein/ viera CHOLECYSTECTOMY 12/03/2019 VEIN SURGERY OVARIAN CYST REMOVAL Medical History Medical History Date Comments Cyst of ovary OVARIAN CYST Hx Other Medical 01-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 (postoperative nausea and vomiting) GERD (gastroesophageal reflux disease) Hematuria Anxiety Chest pain Family History Medical History Relation Name Comments Prostate cancer Father Cancer -pros ochoa; Diabetes Mother Diabetes mellit us; Heart disease Mother Heart disease; Hypertension Mother Hypertension; Breast cancer Mother's Sister 1 Breast cancer Mother's Sister 2 Breast cancer Sister himanshu Relation Name Status Comments Father Mother Mother's Sister 1 Alive Mother's Sister 2 Sister himanshu Alive Social History Tobacco Use Types Packs/Day Years Used Date Smoking Tobacco: Never Smokeless Tobacco: Never Tobacco Cessation:Counseling Given: Not Answered Alcohol Use Standard Drinks/Week Comments Yes 0 [...] on file 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 Gender Identity Not on file Sexual Orientation Not on file Obstetrics History Para Term AB IAB SAB Ectopic Multiple Livin g Live Births 4 4 4 Date Outcome GA Total Labor Labor/3rd Weight Sex Type Anes PTL Sonia A1 A5 Name Clin Term Term Term Term Last Filed Vital Signs Vital Sign Reading Time Taken Comments Blood Pressure 136/71 10/20/2024 5:40 PM CDT Pulse 71 10/20/2024 5:40 PM CDT Temperature 36.6 C (97.9 F) 10/20/2024 5:40 PM CDT Respiratory Rate 16 10/20/2024 5:40 PM CDT Oxygen Saturation 92% 10/20/2024 5:40 PM CDT Inhaled Oxygen Concentration - - Weight 65.8 kg (145 lb 1 oz) 10/19/2024 11:03 PM CDT Height 160 cm (5' 2.99) 10/19/2024 11:03 PM CDT Body Mass Index 25.7 10/19/2024 11:03 PM CDT Plan of Treatment Health Maintenance Due Date Last Done Comments Cervical Cancer Screening 1960 Hepatitis B Screening 1978 Zoster Vaccine (1 of 2) 2010 Breast Cancer Screening-Mammogram 08/08/2022 08/08/2021, 07/28/2020, 07/02/2019, Additional history exists Regular Well Visit/Exam 18-64 12/23/2022 12/23/2021, 11/10/2020, 11/05/2019, Additional history exists Depression Screening 01/27/2023 01/27/2022, 12/23/2021, 12/10/2021, Additional history exists Osteoporosis Screening-Bone Density Scan 08/11/2023 08/10/2021, 07/16/2019, 10/24/2013, Additional history exists Covid-19 Vaccine ( - season) 2024 01/26/2021, 01/08/2021 Colon Cancer Screening-Colonoscopy 10/27/2024 10/27/2017, 05/14/2011, 05/14/2011 Influenza Vaccine (Season Ended) 2025 03/22/2023, 04/05/2022, 04/20/2021, Additional history exists DTaP/Tdap/Td Vaccine (2 - Td or Tdap) 02/24/2034 02/25/2024, 08/14/1996 Colon Cancer Screening-CT Colonography Discontinued 10/27/2017, 05/14/2011, 05/14/2011 Colon Cancer Screening-DNA Stool Discontinued 10/27/2017, 05/14/2011, 05/14/2011 Colon Cancer Screening-FIT Discontinued 10/27, 05/14/2011, 05/14/2011 Colon Cancer Screening-Sigmoidoscopy Discontinued 10/27/2017, 05/14/2011, 05/14/2011 Hepatitis C Screening Completed 12/28/2021, 017 Pneumococcal vaccine <65 Aged Out No longer eligible based on patient's age to complete this topic Procedures Procedure Name Priority Date/Time Associated Diagnosis Comments URINALYSIS, MICROSCOPIC ONLY STAT 10/20/2024 9:22 AM CDT URINALYSIS AND REFLEX TO MICROSCOPIC AND CULTURE STAT 10/20/2024 9:22 AM CDT B CHECK SAMPLE STAT 10/20/2024 7:21 AM CDT PA CRITICAL CARE ILL/INJURED PATIENT INIT 30-74 MIN Routine 10/20/2024 7:[address] HEAD WO CONTRAST Timed 10/20/2024 3 :59 AM CDT XR ELBOW RIGHT 3 OR MORE VIEWS ED 10/20/2024 12:20 AM CDT XR SHOULDER RIGHT 2 OR MORE VIEWS ED 10/20/2024 12:20 AM CDT EGFR STAT 10/19/2024 11:54 PM CDT DIFFERENTIAL AUTO STAT 10/19/2024 11: 54 PM CDT TYPE AND SCREEN STAT 10/19/2024 11:54 PM CDT PROTIME-INR STAT 10/19/2024 11:54 PM CDT APTT STAT 10/19/2024 11:54 PM CDT COMPREHENSIVE METABOLIC PANEL STAT 10/19/2024 11:54 PM CDT CBC WITH AUTO DIFFERENTIAL STAT 10/19/2024 11:54 PM CDT POC BLOOD GAS AND CHEMISTRIES, VENOUS Routine 10/19/2024 10:59 PM CDT PA CRITICAL CARE ILL/INJURED PATIENT INIT 30-74 MIN Routine 10/19/2024 9:[address] CHEST ABDOMEN PELVIS W CONTRAST ED 10/19/2024 7:[address] CERVICAL SPINE WO CONTRAST ED 10/19/2024 7:[address] HEAD WO CONTRAST ED 10/19/2024 7 :11 PM CDT EGFR STAT 10/19/2024 5:11 PM CDT DIFFERENTIAL AUTO STAT 10/19/2024 5:1 1 PM CDT ETHANOL STAT 10/19/2024 5:11 PM CDT COMPREHENSIVE METABOLIC PANEL STAT 10/19/2024 5:11 PM CDT CBC WITH AUTO DIFFERENTIAL STAT 10/19/2024 5:11 PM CDT ECG 12-LEAD STAT 10/19/2024 5:01 PM CDT PA CRITICAL CARE ILL/INJURED PATIENT INIT 30-74 MIN Routine 10/18/2024 7:00 AM CDT HEPATITIS C ANTIBODY Routine 12/28/2021 7:29 AM CDT Routine medical exam Need for hepatitis C screening test DEXA AXIAL SKELETON BONE DENSITY 1 OR MORE SITES Schedule Routine, Read Routine (OP Routine) 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 Age-related osteoporosis without current pathological fracture SCREENING MAMMOGRAM BILATERAL W MANUEL Schedule Routine, Read Routine (OP Routine) 08/08/2021 1:14 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 pH may affect urinary stone formation. For example, urine pH below 6.0 may help reduce the tendency for calcium phosphate stones and pH greater than 6.0 may reduce the tendency for uric acid stone formation. Source: [employer] Current Interpretive Data was last revised on 2017 Protein, ur ql Trace Negative [facility] Glucose, ur ql Negative Negative [facility] Ketones, ur Negative Negative [facility] Bilirubin, ur Negative Negative [facility] Blood, ur Trace(A) Negative [facility] Urobilinogen, ur <2.0 <2.0 mg/dL [facility] Nitrite, ur Negative Negative [facility] Leukocyte esterase, ur Negative Negative [facility] UA reflex comment Reflex to microscopic UA will be performed. [facility] Urine, bladder 10/20/2024 9: 22 AM CDT 10/20/2024 9:29 AM CDT John Montejo MD LAB MICROBIOLOGY - GEN ERAL ORDERABLES Final Result Performing Organization Address [facility] de Phone Number [facility] [place] [address] * (ABNORMAL) Urinalysis, microscopic only (10/20/2024 9:22 AM CDT) WBC, ur 0-5 0 - 5 /HPF RBC, ur 6-10(A) 0 - 2 /HPF [facility] Epithelial cells, squamous, ur 1-5 0 - 5 /HPF [facility] Bacteria, ur Trace(A) [facility] Mucous, ur Present(A) [facility] Culture Reflex Comment Reflex conditions for urine culture (WBC >10) not met. [facility] Urine, bladder 10/20/2024 9: 22 AM CDT 10/20/2024 9:29 AM CDT us Shiloh Conrad MD LAB URINE ORDERABLES Fi nal Result Performing Organization Address [facility] de Phone Number [facility] Department [place] [address] * Check Sample (10/20/2024 7:21 AM CDT) ABO Rh O Positive [facility] OTHER 10/20/2024 7:2 1 AM CDT 10/20/2024 7:32 AM CDT Lars Watson MD LAB BLOOD ORDERABLES Final R esult Performing Organization Address [facility] de Phone Number [facility] [place] [address] [facility] * PA CRITICAL CARE ILL/INJURED PATIENT INIT 30-74 MIN (10/20/2024 7:00 AM CDT) Narrative Mikhail Farrell MD - 10/20/2024 7:00 AM CDT Mikhail Farrell MD 10/28/2024 10:56 PM Critical Care Performed by: Mikhail Farrell MD Authorized by: Gary Pineda MD Critical care provider statement: As reflected in the history, physical exam, orders, notes, and/or MDM, I was personally present while the patient was critically ill and provided critical care services for 35 minutes, excluding time involved in separately billable procedures. Critical care was necessary to treat or prevent imminent or life-threatening deterioration of the following condition(s): traumatic brain injury Critical care was time spent by me providing the following: continuous telemetry, continuous pulse oximetry, interpretation of bedside monitors, imaging, and arterial/venous lab draws and serial bedside patient exams frequent neurologic exams I provided emergent necessary critical care medicine services to this patient. I ordered and reviewed test results and/or imaging studies. I spent time discussing the management of this critically ill patient with consultants and the medical staff. I spent time discussing the management and therapeutic options for this critically ill patient with the patient themselves or with the appropriate designated surrogate decision-maker. I spent time documenting in the medical record. us Gary Pineda MD IN CLINIC/BEDSIDE [facility] Final Result * CT Head WO Contrast (10/20/2024 3:59 AM CDT) Anatomical Region Laterality Modality Head and Neck N/A Computed Tomogra phy 10/20/2024 4:56 AM CDT Impressions 10/20/2024 8:56 AM CDT Evolving right frontal and parietal lobe subarachnoid hemorrhage similar to slightly decreased compared to prior study. Dictated by: Melquiades Holder MD The radiology attending physician has personally reviewed this study, and had reviewed and/or edited this written report and agrees with it. Electronically signed by: Nina Juan M.D. Narrative 10/20/2024 8:56 AM CDT EXAMINATION: CT head without contrast HISTORY: Evaluate subarachnoid hemorrhage. Fall TECHNIQUE: CT of the head was performed with images acquired from skull base to vertex without intravenous contrast. COMPARISON: CT dated 10/19/2024 FINDINGS: Evolving changes of right frontal and parietal subarachnoid hemorrhage similar to slightly decreased the compared to prior study. There is no acute intracranial hemorrhage. Ventricles are of normal size and morphology. No mass effect or midline shift is present. The ferraro-white matter differentiation is normal. The visualized portions of the orbits are normal. The visualized portions of the mastoids are normal. The visualized portions of the paranasal sinuses are normal. No fractures are identified. Procedure Note Nina Juan MD - 10/20/2024 EXAMINATION: CT head without contrast HISTORY: Evaluate subarachnoid hemorrhage. Fall TECHNIQUE: CT of the head was performed with images acquired from skull base to vertex without intravenous contrast. COMPARISON: CT dated 10/19/2024 FINDINGS: Evolving changes of right frontal and parietal subarachnoid hemorrhage similar to slightly decreased the compared to prior study. There is no acute intracranial hemorrhage. Ventricles are of normal size and morphology. No mass effect or midline shift is present. The ferraro-white matter differentiation is normal. The visualized portions of the orbits are normal. The visualized portions of the mastoids are normal. The visualized portions of the paranasal sinuses are normal. No fractures are identified. IMPRESSION: Evolving right frontal and parietal lobe subarachnoid hemorrhage similar to slightly decreased compared to prior study. Dictated by: Melquiades Holder MD The radiology attending physician has personally reviewed this study, and had reviewed and/or edited this written report and agrees with it. Electronically signed by: Nina Juan M.D. Shiloh Conrad MD [facility] CT PROCEDURES Final Result * XR Elbow Right 3 or More Views (10/20/2024 12:20 AM CDT) Anatomical Region Laterality Modality Upper Extremities, Elbow Right Compute d Radiography 10/20/2024 12:3 4 AM CDT Impressions 10/20/2024 9:58 AM CDT RIGHT SHOULDER: Mild acromioclavicular and glenohumeral joint osteoarthritis in the right shoulder. No acute fracture or dislocation in the right shoulder. RIGHT ELBOW: Joint spaces are normal. Alignment is intact. No acute fracture or dislocation in the right elbow. Dictated by: Kim Elizondo MD, PhD The radiology attending physician has personally reviewed this study, and had reviewed and/or edited this written report and agrees with it. Electronically signed by: Moose Bynum MD Narrative 10/20/2024 9:58 AM CDT EXAMINATION: XR SHOULDER RIGHT 2 OR MORE VIEWS, XR ELBOW RIGHT 3 OR MORE VIEWS HISTORY: 64-year-old status post accidental fall Procedure Note Moose Bynum MD - 10/20/2024 EXAMINATION: XR SHOULDER RIGHT 2 OR MORE VIEWS, XR ELBOW RIGHT 3 OR MORE VIEWS HISTORY: 64-year-old status post accidental fall IMPRESSION: RIGHT SHOULDER: Mild acromioclavicular and glenohumeral joint osteoarthritis in the right shoulder. No acute fracture or dislocation in the right shoulder. RIGHT ELBOW: Joint spaces are normal. Alignment is intact. No acute fracture or dislocation in the right elbow. Dictated by: Kim Elizondo MD, PhD The radiology attending physician has personally reviewed this study, and had reviewed and/or edited this written report and agrees with it. Electronically signed by: Moose Bynum MD Shiloh Conrad MD IMG XR PROCEDURES Final Result * XR Shoulder Right 2 or More Views (10/20/2024 12:20 AM CDT) Anatomical Region Laterality Modality Upper Extremities, Shoulder Right Comp uted Radiography 10/20/2024 12:3 4 AM CDT Impressions 10/20/2024 9:58 AM CDT RIGHT SHOULDER: Mild acromioclavicular and glenohumeral joint osteoarthritis in the right shoulder. No acute fracture or dislocation in the right shoulder. RIGHT ELBOW: Joint spaces are normal. Alignment is intact. No acute fracture or dislocation in the right elbow. Dictated by: Kim Elizondo MD, PhD The radiology attending physician has personally reviewed this study, and had reviewed and/or edited this written report and agrees with it. Electronically signed by: Moose Bynum MD Narrative 10/20/2024 9:58 AM CDT EXAMINATION: XR SHOULDER RIGHT 2 OR MORE VIEWS, XR ELBOW RIGHT 3 OR MORE VIEWS HISTORY: 64-year-old status post accidental fall Procedure Note Moose Bynum MD - 10/20/2024 EXAMINATION: XR SHOULDER RIGHT 2 OR MORE VIEWS, XR ELBOW RIGHT 3 OR MORE VIEWS HISTORY: 64-year-old status post accidental fall IMPRESSION: RIGHT SHOULDER: Mild acromioclavicular and glenohumeral joint osteoarthritis in the right shoulder. No acute fracture or dislocation in the right shoulder. RIGHT ELBOW: Joint spaces are normal. Alignment is intact. No acute fracture or dislocation in the right elbow. Dictated by: Kim Elizondo MD, PhD The radiology attending physician has personally reviewed this study, and had reviewed and/or edited this written report and agrees with it. Electronically signed by: Moose Bynum MD Shiloh Conrad MD IMG XR PROCEDURES Final Result * eGFR (10/19/2024 11:54 PM CDT) eGFR >90 >=60 mL/min/1. 73 m2 Comment: Interpretive Data Reference Interval Normal >/= 90 mL/min/1.73m2 Mildly decreased* 60 - 89 mL/min/1.73m2 Mildly to moderately decreased 45 - 59 mL/min/1.73m2 Moderately to severely decreased 30 - 44 mL/min/1.73m2 Severely decreased 15 - 29 mL/min/1.73m2 Kidney Failure < 15 mL/min/1.73m2 *Relative to young adult level Estimated glomerular filtration rate is determined by the 2020 CKD-EPI equation recommended by the National Kid[employer] (A Unifying Approach to GFR Estimation: Recommendations of the NKF-ASK Task Force on Reassessing the Inclusion of Race in Diagnosing Kidney Disease, JASN 2020). The CKD-EPI equation should not be used for patients with unstable renal function and has not been validated in children and those over 70. Current interpretive data was last reviewed 2021. Blood 10/19/2024 11:5 4 PM CDT 10/20/2024 12:04 AM CDT Shilho Conrad MD LAB BLOOD ORDERABLES Fi nal Result [facility] [place] [address] * Differential, auto (10/19/2024 11:54 PM CDT) Neutrophil abs 6.27 1.50 - 6.50 K/cumm Imm gran abs 0.03 0.00 - 0.10 K/cumm [facility] Lymphocyte abs 1.51 0.80 - 3.30 K/cumm [facility] Monocyte abs 0.71 0.20 - 0.80 K/cumm [facility] Eosinophil abs 0.07 0.00 - 0.50 K/cumm [facility] Basophil abs 0.04 0.00 - 0.10 K/cumm [facility] Neutrophil pct 72.7 % [facility] Comment: Interpretive Data Percent cell count reference ranges are not reported, since discordance with absolute values may lead to misinterpretation of CBC data. Current Interpretive Data was last revised on 2017. Imm gran pct 0.3 % [facility] Comment: Interpretive Data Percent cell count reference ranges are not reported, since discordance with absolute values may lead to misinterpretation of CBC data. Current Interpretive Data was last revised on 2017. Lymphocyte pct 17.5 % [facility] Comment: Interpretive Data Percent cell count reference ranges are not reported, since discordance with absolute values may lead to misinterpretation of CBC data. Current Interpretive Data was last revised on 2017. Monocyte pct 8.2 % [facility] Comment: Interpretive Data Percent cell count reference ranges are not reported, since discordance with absolute values may lead to misinterpretation of CBC data. Current Interpretive Data was last revised on 2017. Eosinophil pct 0.8 % [facility] Comment: Interpretive Data Percent cell count reference ranges are not reported, since discordance with absolute values may lead to misinterpretation of CBC data. Current Interpretive Data was last revised on 2017. Basophil pct 0.5 % [facility] Comment: Interpretive Data Percent cell count reference ranges are not reported, since discordance with absolute values may lead to misinterpretation of CBC data. Current Interpretive Data was last revised on 2017. Blood 10/19/2024 11:5 4 PM CDT 10/20/2024 12:03 AM CDT Shiloh Conrad MD LAB BLOOD ORDERABLES Fi nal Result [facility] [place] [address] * CBC with auto differential (10/19/2024 11:54 PM CDT) WBC 8.63 3.80 - 9.90 K/cumm Hgb 12.0 11.9 - 15.5 g/dL [facility] Hct 36.5 35.6 - 45.5 % [facility] Plt 246 150 - 400 K/cumm [facility] MPV 9.9 9.1 - 12.3 fL [facility] RBC 3.92 3.90 - 5.20 M/cumm [facility] MCV 93.1 81.3 - 96.4 fL [facility] MCH 30.6 27.1 - 33.3 pg [facility] MCHC 32.9 32.3 - 35.7 g/dL [facility] RDW CV 13.8 11.1 - 14.9 % [facility] RDW SD 46.7 35.7 - 48.1 fL [facility] NRBC abs 0.00 0.00 - 0.01 K/cumm [facility] Blood 10/19/2024 11:5 4 PM CDT 10/20/2024 12:03 AM CDT Shiloh Conrad MD LAB BLOOD ORDERABLES Fi nal Result Performing Organization Address City/[facility]/ZIP Co de Phone Number [facility] Department [place] [address] * aPTT (10/19/2024 11:54 PM CDT) aPTT 28 28 - 38 sec Comment: Interpretive Data Heparin therapeutic range: 66.0 - 100.0 seconds. Range based on correlation with therapeutic heparin activity range of 0.3 - 0.7 Units/mL. Current interpretive data was last revised on 2023. Blood 10/19/2024 11:5 4 PM CDT 10/20/2024 12:08 AM CDT Shiloh Conrad MD LAB BLOOD ORDERABLES Fi nal Result Performing Organization Address [facility] [place] [place] [address] * Protime-INR (10/19/2024 11:54 PM CDT) Pathologist [facility] PT 10.6 9.7 - 13.0 sec INR 0.98 0.90 - 1.20 [facility] Comment: Interpretive data Oral anticoagulant therapeutic ranges: Venous thromboembolism prophylaxis or treatment: 2.0-3.0 CARDIOLOGY Standard range: 2.0-3.0 High-intensity range: 2.5-3.5 Refer to indication-specific guidelines for appropriate target ranges for prosthetic heart valve replacement. Current interpretive data was last revised on 2019. Blood 10/19/2024 11:5 4 PM CDT 10/20/2024 12:08 AM CDT Shiloh Conrad MD LAB BLOOD ORDERABLES Fi nal Result Performing Organization Address City/[facility]/[place] [address] * Type and screen (10/19/2024 11:54 PM CDT) Jeanette, indirect Negative ABO Rh O Positive [facility] Blood 10/19/2024 11:5 4 PM CDT 10/20/2024 12:02 AM CDT Narrative RUSTY FISCHER - 10/20/2024 12:55 AM CDT Has the patient had Daratumumab or Isatuximab in the past 6 months?->Unknown Shiloh Conrad MD LAB BLOOD BANK TEST ORD ERABLES Final Result [facility] Department [place] [address] * Comprehensive metabolic panel (10/19/2024 11:54 PM CDT) Sodium 142 135 - 145 mmol/L Potassium, pl 4.0 3.3 - 4.9 mmol/L [facility] Chloride 106 97 - 110 mmol/L [facility] CO2 29 22 - 32 mmol/L [facility] Anion gap 7 2 - 15 mmol/L [facility] BUN 13 6 - 25 mg/dL [facility] Creatinine 0.70 0.60 - 1.10 mg/dL [facility] Glucose 124 70 - 199 mg/dL [facility] Comment: Interpretive Data Fasting glucose >/= 126 mg/dl is diagnostic for diabetes. Fasting is defined as no caloric intake for at least 8 hours. Fasting glucose between 100 mg/dl to 125 mg/dl is diagnostic of prediabetes. In a patient with classic symptoms of hyperglycemia or hyperglycemic crisis, a random glucose >/= 200 mg/dl is diagnostic for diabetes. In the absence of unequivocal hyperglycemia, results should be confirmed by repeat testing. The classification and Diagnosis of Diabetes Diabetes Care 2021; 46: S19-S40. Current interpretive data was last revised 2022. Calcium 8.8 8.5 - 10.3 mg/dL [facility] Bilirubin, total 0.3 0.1 - 1.2 mg/dL [facility] Protein, pl 6.5 6.5 - 8.5 g/dL [facility] Albumin 3.8 3.5 - 5.0 g/dL [facility] Alk phos 93 40 - 130 Units/L [facility] ALT 21 7 - 45 Units/L [facility] AST 31 10 - 45 Units/L [facility] Blood 10/19/2024 11:5 4 PM CDT 10/20/2024 12:04 AM CDT Shiloh Conrad MD LAB BLOOD ORDERABLES Fi nal Result Performing Organization Address [facility] Co de Phone Number [facility] Department [place] [address] * (ABNORMAL) POC Blood Gas and Chemistries, Venous - (10/19/2024 10:59 PM CDT) pH, Anabel POC 7.40 7.32 - 7.43 pCO2, anabel POC 48 40 - 50 mmHg [facility] pO2, anabel POC 43 mmHg [facility] Na, POC 140 135 - 145 mmol/L [facility] K POC 4.1 3.3 - 4.9 mmol/L [facility] Comment: Interpretive Data Not all point of care methods assess for hemolysis. Confirm with instrument and retest K+ if not consistent with clinical signs and symptoms. Current Interpretive Data was last revised on 2023. Cl, POC 106 97 - 110 mmol/L [facility] Ionized Ca, POC 4.73 4.50 - 5.10 mg/dL [facility] Glucose, POC 125 70 - 199 mg/dL [facility] Lactate POC 1.0 0.7 - 2.0 mmol/L [facility] MetHb, Anabel POC 1.0 0.0 - 1.9 % [facility] O2 Sat, Anabel POC (Sissy) 70 % [facility] Base excess, POC 4.1 mmol/L [facility] Hct, POC 36.0(L) 36.3 - 45.3 % [facility] Total Hb, POC 12.1 11.9 - 15.5 g/dL [facility] Blood 10/19/2024 10:5 9 PM CDT 10/19/2024 10:59 PM CDT Lars Watson MD LAB POCT ORDERABLES - DEVICE Final Result [facility] [place] [address] * PA CRITICAL CARE ILL/INJURED PATIENT INIT 30-74 MIN (10/19/2024 9:13 PM CDT) Narrative Lars Watson MD - 10/19/2024 9:13 PM CDT Lars Watson MD 10/19/2024 9:13 PM Critical Care Performed by: Lars Watson MD Authorized by: Lars Watson MD Critical care provider statement: As reflected in the history, physical exam, orders, notes, and/or MDM, I was personally present while the patient was critically ill and provided critical care services for 35 minutes, excluding time involved in separately billable procedures. Critical care was necessary to treat or prevent imminent or life-threatening deterioration of the following condition(s): acute intracranial hemorrhage Critical care was time spent by me providing the following: frequent neurologic exams I provided emergent necessary critical care medicine services to this patient. I ordered and reviewed test results and/or imaging studies. I spent time discussing the management of this critically ill patient with consultants and the medical staff. us Lars Watson MD IN CLINIC/BEDSIDE ORDERABLES Final Result * CT Chest Abdomen Pelvis W Contrast (10/19/2024 7:11 PM CDT) Anatomical Region Laterality Modality Body N/A Computed Tomogra phy 10/19/2024 7:35 PM CDT Narrative 10/19/2024 7:45 PM CDT EXAM DESCRIPTION: CT CHEST ABDOMEN PELVIS W CONTRAST REASON FOR STUDY: Polytrauma, blunt Patient fell from second story [employer] in her home, struck head. LOC. Denies head, neck, chest or abdominal complaints, right shoulder pain. TECHNIQUE: CT scan of the chest, abdomen, and pelvis performed with intravenous and without oral contrast using helical scanning technique with dynamic intravenous contrast injection. Reconstructed coronal and sagittal MPR images reviewed. All images stored on PACS. Automated exposure control was used as a dose optimization technique for this examination. CONTRAST TYPE/DOSE: 75mL of IOVERSOL 350 MG IODINE/ML INTRAVENOUS SYRINGE injected via intravenous COMPARISON: 03/19/2023. FINDINGS: CHEST LUNGS: Central airways are patent. There is no evidence of pulmonary contusion or laceration. There has a small amount of atelectasis in the right lower lobe. Left lower lobe calcified granuloma. PLEURA: No pleural effusion or pneumothorax. MEDIASTINUM/EDILBERTO: No mediastinal or hilar mass. HEART: Heart size normal scratch the heart size is top normal. There is no pericardial effusion. VASCULATURE CHEST: The vasculature is somewhat limited by motion and bolus timing. No findings which would raise suspicion of traumatic aortic injury. The ascending thoracic aorta 3.6 cm, descending thoracic aorta 2.6 cm. Main pulmonary artery size is normal. AXILLA: No axillary lymphadenopathy is seen. CHEST WALL: No chest wall mass or subcutaneous emphysema. HARDWARE/LINES/TUBES: None. MUSCULOSKELETAL CHEST: No significant abnormality. Bone windows demonstrate no acute or aggressive osseous abnormality. The scapula are intact. No acute rib fracture seen. Sternum intact. The clavicles are intact. Vertebral body height and alignment normal. There is severe disc space loss T11-12. ABDOMEN/PELVIS LIVER: Unchanged cystic area in the right hepatic lobe. The portal and hepatic veins are patent. There is a cystic area in the left hepatic lobe of the liver 1.8 x 1.4 cm (series 3, image 82). Cystic area in the right hepatic lobe this is peripheral nodular enhancement possibly hemangioma (image 97) unchanged. GALLBLADDER: The gallbladder is surgically absent. BILE DUCTS: No biliary ductal dilation. SPLEEN: Spleen size is normal. No focal splenic lesion. PANCREAS: No pancreatic mass or inflammatory change. ADRENALS: Normal KIDNEYS/URINARY TRACT: No right renal calculus. No left renal calculus. No ureteral calculus. No evidence of contusion. Urinary bladder is unremarkable. GI: No evidence of bowel obstruction. There is a small hiatal hernia. No pneumatosis. No abnormal bowel wall thickening. The terminal ileum is normal. PERITONEUM: No ascites or free air. No mesenteric mass or lymphadenopathy. RETROPERITONEUM: No pathologic lymphadenopathy. REPRODUCTIVE: No significant abnormalities are seen. The uterus is noted. There is a rounded low-density structure in the lower abdominal mesentery near the uterus 1.3 cm (image 154) which is unchanged. VASCULATURE ABDOMEN: Abdominal aorta nonaneurysmal. MUSCULOSKELETAL ABDOMEN PELVIS: Bone windows demonstrate no acute or aggressive osseous abnormality. Disc space narrowing at L4-5 and L5-S1 with vacuum disc phenomena. OTHER: No significant abnormality. IMPRESSION: No evidence of an acute traumatic abnormality of the chest, abdomen, or pelvis. Small amount of atelectasis in the right lower lobe. Cholecystectomy. Small hiatal hernia. THIS IS AN ELECTRONICALLY VERIFIED FINAL REPORT 10/19/2024 7:45 PM - Electronically signed by Jai Leiva M.D. CH: ANITRA Report ID: [id number] Reading Location: [id number] Procedure Note Jai Leiva Jr., MD - 10/19/2024 EXAM DESCRIPTION: CT CHEST ABDOMEN PELVIS W CONTRAST REASON FOR STUDY: Polytrauma, blunt Patient fell from second story [employer] in her home, struck head. LOC.Denies head, neck, chest or abdominal complaints, right shoulder pain. TECHNIQUE: CT scan of the chest, abdomen, and pelvis performed with intravenous and without oral contrast using helical scanning techniquewith dynamic intravenous contrast injection. Reconstructed coronal and sagittalMPR images reviewed. All images stored on PACS. Automated exposure control was used as a dose optimization technique for this examination. CONTRAST TYPE/DOSE: 75mL of IOVERSOL 350 MG IODINE/ML INTRAVENOUS SYRINGE injected via intravenous COMPARISON: 03/19/2023. FINDINGS: CHEST LUNGS: Central airways are patent. There is no evidence of pulmonary contusion or laceration. There has a small amount of atelectasis in theright lower lobe. Left lower lobe calcified granuloma. PLEURA: No pleural effusion or pneumothorax. MEDIASTINUM/EDILBERTO: No mediastinal or hilar mass. HEART: Heart size normal scratch the heart size is top normal. There isno pericardial effusion. VASCULATURE CHEST: The vasculature is somewhat limited by motion andbolus timing. No findings which would raise suspicion of traumatic aorticinjury. The ascending thoracic aorta 3.6 cm, descending thoracic aorta 2.6 cm.Main pulmonary artery size is normal. AXILLA: No axillary lymphadenopathy is seen. CHEST WALL: No chest wall mass or subcutaneous emphysema. HARDWARE/LINES/TUBES: None. MUSCULOSKELETAL CHEST: No significant abnormality. Bone windowsdemonstrate no acute or aggressive osseous abnormality. The scapula are intact. Noacute rib fracture seen. Sternum intact. The clavicles are intact. Vertebralbody height and alignment normal. There is severe disc space loss T11-12. ABDOMEN/PELVIS LIVER: Unchanged cystic area in the right hepatic lobe. The portal and hepatic veins are patent. There is a cystic area in the left hepatic lobeof the liver 1.8 x 1.4 cm (series 3, image 82). Cystic area in the righthepatic lobe this is peripheral nodular enhancement possibly hemangioma (image 97) unchanged. GALLBLADDER: The gallbladder is surgically absent. BILE DUCTS: No biliary ductal dilation. SPLEEN: Spleen size is normal. No focal splenic lesion. PANCREAS: No pancreatic mass or inflammatory change. ADRENALS: Normal KIDNEYS/URINARY TRACT: No right renal calculus. No left renal calculus.No ureteral calculus. No evidence of contusion. Urinary bladder is unremarkable. GI: No evidence of bowel obstruction. There is a small hiatal hernia.No pneumatosis. No abnormal bowel wall thickening. The terminal ileum is normal. PERITONEUM: No ascites or free air. No mesenteric mass orlymphadenopathy. RETROPERITONEUM: No pathologic lymphadenopathy. REPRODUCTIVE: No significant abnormalities are seen. The uterus isnoted. There is a rounded low-density structure in the lower abdominal mesenterynear the uterus 1.3 cm (image 154) which is unchanged. VASCULATURE ABDOMEN: Abdominal aorta nonaneurysmal. MUSCULOSKELETAL ABDOMEN PELVIS: Bone windows demonstrate no acute or aggressive osseous abnormality. Disc space narrowing at L4-5 and L5-S1with vacuum disc phenomena. OTHER: No significant abnormality. IMPRESSION: No evidence of an acute traumatic abnormality of the chest, abdomen, or pelvis. Small amount of atelectasis in the right lower lobe. Cholecystectomy. Small hiatal hernia. THIS IS AN ELECTRONICALLY VERIFIED FINAL REPORT 10/19/2024 7:45 PM - Electronically signed by Jai Leiva M.D. CH: ANITRA Report ID: [id number] Reading Location: [id number] Lars Watson MD IMG CT PROCEDURES Final Resu lt * CT Cervical Spine WO Contrast (10/19/2024 7:11 PM CDT) Anatomical Region Laterality Modality Spine N/A Computed Tomogra phy 10/19/2024 7:29 PM CDT Narrative 10/19/2024 7:35 PM CDT EXAM DESCRIPTION: CT CERVICAL SPINE WO CONTRAST REASON FOR STUDY: Neck trauma, impaired ROM (Age 16-64y) Patient fell from second story balcony in her home, struck head. LOC. TECHNIQUE: Axial images through the cervical spine with sagittal and coronal reformatted images. Automated exposure control was used as a dose optimization technique for this examination. COMPARISON: Cervical spine CT 09/26/2019. FINDINGS: ALIGNMENT: There is grade 1 anterolisthesis C3 on C4 approximately 4 mm and grade 1 retrolisthesis C4 on C5 of approximately 4.5 mm similar to the prior radiograph. DISCS: Disc space narrowing is noted which is severe at C4-5, C5-6 and C6-7. VERTEBRAE: No acute fracture. Facets align normally. Vertebral body heights are maintained. No acute fracture. There is some irregularity of the T1 spinous process which could be an old site of healed injury. HARDWARE: None in the spine. INDIVIDUAL DISC LEVELS: There is severe osseous spinal canal stenosis at C4-5 and moderate to severe osseous stenosis at C6-7. Moderate left osseous neuroforaminal stenosis at C3-4. Moderate right and mild left osseous neuroforaminal stenosis at C4-5. Moderate right osseous neuroforaminal stenosis C5-6. Moderate to severe bilateral osseous neuroforaminal stenosis C6-7. UPPER THORACIC: Incompletely imaged with no significant abnormality. SKULL BASE: No significant abnormality. LUNG APICES: No significant abnormality. NECK SOFT TISSUES: No significant abnormality. OTHER: No other significant abnormality. IMPRESSION: No evidence of an acute osseous abnormality of the cervical spine. Moderate to severe cervical spondylosis. Grade 1 anterolisthesis C3 on C4 and grade 1 retrolisthesis C4 on C5 similar to the prior radiograph. THIS IS AN ELECTRONICALLY VERIFIED FINAL REPORT 10/19/2024 7:35 PM - Electronically signed by Jai Leiva M.D. CH: ANITRA Report ID: [id number] Reading Location: [id number] Procedure Note Jai Leiva Jr., MD - 10/19/2024 EXAM DESCRIPTION: CT CERVICAL SPINE WO CONTRAST REASON FOR STUDY: Neck trauma, impaired ROM (Age 16-64y) Patient fell from second story balcony in her home, struck head. LOC. TECHNIQUE: Axial images through the cervical spine with sagittal andcoronal reformatted images. Automated exposure control was used as a doseoptimization technique for this examination. COMPARISON: Cervical spine CT 09/26/2019. FINDINGS: ALIGNMENT: There is grade 1 anterolisthesis C3 on C4 approximately 4 mmand grade 1 retrolisthesis C4 on C5 of approximately 4.5 mm similar to theprior radiograph. DISCS: Disc space narrowing is noted which is severe at C4-5, C5-6 andC6-7. VERTEBRAE: No acute fracture. Facets align normally. Vertebral bodyheights are maintained. No acute fracture. There is some irregularity of the T1 spinous process which could be an old site of healed injury. HARDWARE: None in the spine. INDIVIDUAL DISC LEVELS: There is severe osseous spinal canal stenosis atC4-5 and moderate to severe osseous stenosis at C6-7. Moderate left osseous neuroforaminal stenosis at C3-4. Moderate right and mild left osseous neuroforaminal stenosis at C4-5. Moderate right osseous neuroforaminal stenosis C5-6. Moderate to severe bilateral osseous neuroforaminalstenosis C6-7. UPPER THORACIC: Incompletely imaged with no significant abnormality. SKULL BASE: No significant abnormality. LUNG APICES: No significant abnormality. NECK SOFT TISSUES: No significant abnormality. OTHER: No other significant abnormality. IMPRESSION: No evidence of an acute osseous abnormality of the cervical spine. Moderate to severe cervical spondylosis. Grade 1 anterolisthesis C3 on C4 and grade 1 retrolisthesis C4 on [id number] to the prior radiograph. THIS IS AN ELECTRONICALLY VERIFIED FINAL REPORT 10/19/2024 7:35 PM - Electronically signed by Jai Leiva M.D. CH: ANITRA Report ID: [id number] Reading Location: [place] [id number] Lars Watson MD IMG CT PROCEDURES Final Resu lt * CT Head WO Contrast (10/19/2024 7:11 PM CDT) Anatomical Region Laterality Modality Head and Neck N/A Computed Tomogra phy 10/19/2024 7:24 PM CDT Narrative 10/19/2024 7:46 PM CDT EXAM DESCRIPTION: CT HEAD WO CONTRAST REASON FOR STUDY: Head trauma, moderate-severe Patient fell from second story balcony in her home, struck head. LOC. Denies head, neck, chest or abdominal complaints, right shoulder pain. TECHNIQUE: Axial images acquired through the brain without intravenous contrast. Images stored on PACS. Automated exposure control was used as a dose optimization technique for this examination. COMPARISON: 02/25/2024. FINDINGS: BRAIN: There is high density in the sulci of the right frontal and to a lesser extent lobe characteristic of subarachnoid hemorrhage. No convincing parenchymal hematoma. There is no cerebral edema, mass, or central mass effect. No evidence of hydrocephalus. EXTRA-AXIAL SPACES: No other extra-axial fluid collection, mass or mass effect. CALVARIUM: Bone windows demonstrate no acute skull base or calvarial abnormality. SINUSES/MASTOIDS: The included paranasal sinuses and mastoid air cells are predominantly clear. ORBITS: No significant abnormality. OTHER: No other significant abnormality. IMPRESSION: Acute subarachnoid hemorrhage in the right frontal and parietal lobes. No overlying fracture or other acute intracranial abnormality. Critical results discussed with Dr. Watson by Dr. Leiva at approximately 7:46 pm central time on 10/19/2024 . THIS IS AN ELECTRONICALLY VERIFIED FINAL REPORT 10/19/2024 7:46 PM - Electronically signed by Jai Leiva M.D. CH: ANITRA Report ID: [id number] Reading Location: [id number] Procedure Note Jai Leiva Jr., MD - 10/19/2024 EXAM DESCRIPTION: CT HEAD WO CONTRAST REASON FOR STUDY: Head trauma, moderate-severe Patient fell from second story balcony in her home, struck head. LOC.Denies head, neck, chest or abdominal complaints, right shoulder pain. TECHNIQUE: Axial images acquired through the brain without intravenous contrast. Images stored on PACS. Automated exposure control was used asa dose optimization technique for this examination. COMPARISON: 02/25/2024. FINDINGS: BRAIN: There is high density in the sulci of the right frontal and to a lesser extent lobe characteristic of subarachnoid hemorrhage. Noconvincing parenchymal hematoma. There is no cerebral edema, mass, or central mass effect. No evidence of hydrocephalus. EXTRA-AXIAL SPACES: No other extra-axial fluid collection, mass or mass effect. CALVARIUM: Bone windows demonstrate no acute skull base or calvarial abnormality. SINUSES/MASTOIDS: The included paranasal sinuses and mastoid air cellsare predominantly clear. ORBITS: No significant abnormality. OTHER: No other significant abnormality. IMPRESSION: Acute subarachnoid hemorrhage in the right frontal and parietal lobes. No overlying fracture or other acute intracranial abnormality. Critical results discussed with Dr. Watson by Dr. Cali [email or web address] 7:46 pm central time on 10/19/2024 . THIS IS AN ELECTRONICALLY VERIFIED FINAL REPORT 10/19/2024 7:46 PM - Electronically signed by Jai Leiva M.D. CH: Report ID: [id number] Reading Location: [place] [address] Lars Watson MD IMG CT PROCEDURES Final Resu lt * eGFR (10/19/2024 5:11 PM CDT) eGFR >90 >=60 mL/min/1. 73 m2 Comment: Interpretive Data Reference Interval Normal >/= 90 mL/min/1.73m2 Mildly decreased* 60 - 89 mL/min/1.73m2 Mildly to moderately decreased 45 - 59 mL/min/1.73m2 Moderately to severely decreased 30 - 44 mL/min/1.73m2 Severely decreased 15 - 29 mL/min/1.73m2 Kidney Failure < 15 mL/min/1.73m2 *Relative to young adult level Estimated glomerular filtration rate is determined by the 2020 CKD-EPI equation recommended by the National Kidney Foundation (A Unifying Approach to GFR Estimation: Recommendations of the NKF-ASK Task Force on Reassessing the Inclusion of Race in Diagnosing Kidney Disease, JASN 2020). The CKD-EPI equation should not be used for patients with unstable renal function and has not been validated in children and those over 70. Current interpretive data was last reviewed 2021. Blood 10/19/2024 5:11 PM CDT 10/19/2024 5:14 PM CDT Lars Watson MD LAB BLOOD ORDERABLES Final R esult [facility] ([place]) 1 [facility] [place] [address] * (ABNORMAL) Differential, auto (10/19/2024 5:11 PM CDT) Neutrophil abs 4.65 1.50 - 6.50 K/cumm Imm gran abs 0.04 0.00 - 0.10 K/cumm [facility] ([place]) Lymphocyte abs 2.75 0.80 - 3.30 K/cumm [facility] ([place]) Monocyte abs 0.83(H) 0.20 - 0.80 K/cumm [facility] ([place]) Eosinophil abs 0.25 0.00 - 0.50 K/cumm [facility] ([place]) Basophil abs 0.05 0.00 - 0.10 K/cumm [facility] ([place]) Neutrophil pct 54.2 % [facility] ([place]) Comment: Interpretive Data Percent cell count reference ranges are not reported, since discordance with absolute values may lead to misinterpretation of CBC data. Current Interpretive Data was last revised on 2017. Imm gran pct 0.5 % [facility] ([place]) Comment: Interpretive Data Percent cell count reference ranges are not reported, since discordance with absolute values may lead to misinterpretation of CBC data. Current Interpretive Data was last revised on 2017. Lymphocyte pct 32.1 % [facility] ([place]) Comment: Interpretive Data Percent cell count reference ranges are not reported, since discordance with absolute values may lead to misinterpretation of CBC data. Current Interpretive Data was last revised on 2017. Monocyte pct 9.7 % [facility] ([place]) Comment: Interpretive Data Percent cell count reference ranges are not reported, since discordance with absolute values may lead to misinterpretation of CBC data. Current Interpretive Data was last revised on 2017. Eosinophil pct 2.9 % [facility] ([place]) Comment: Interpretive Data Percent cell count reference ranges are not reported, since discordance with absolute values may lead to misinterpretation of CBC data. Current Interpretive Data was last revised on 2017. Basophil pct 0.6 % [facility] ([place]) Comment: Interpretive Data Percent cell count reference ranges are not reported, since discordance with absolute values may lead to misinterpretation of CBC data. Current Interpretive Data was last revised on 2017. Blood 10/19/2024 5:11 PM CDT 10/19/2024 5:14 PM CDT Lars Watson MD LAB BLOOD ORDERABLES Final R esult [facility] ([place]) 1 [facility] Department [place] [address] * (ABNORMAL) CBC with auto differential (10/19/2024 5:11 PM CDT) WBC 8.57 3.80 - 9.90 K/cumm Hgb 12.3 11.9 - 15.5 g/dL [facility] ([place]) Hct 38.3 35.6 - 45.5 % [facility] ([place]) Plt 237 150 - 400 K/cumm [facility] ([place]) MPV 9.5 9.1 - 12.3 fL [facility] ([place]) RBC 3.98 3.90 - 5.20 M/cumm [facility] ([place]) MCV 96.2 81.3 - 96.4 fL [facility] ([place]) MCH 30.9 27.1 - 33.3 pg [facility] ([place]) MCHC 32.1(L) 32.3 - 35.7 g/dL [facility] ([place]) RDW CV 13.4 11.1 - 14.9 % [facility] ([place]) RDW SD 47.9 35.7 - 48.1 fL [facility] ([place]) NRBC abs 0.00 0.00 - 0.01 K/cumm [facility] ([place]) Blood 10/19/2024 5:11 PM CDT 10/19/2024 5:14 PM CDT Lars Watson MD LAB BLOOD ORDERABLES Final R esult Performing Organization Address City/[facility] Co de Phone Number [facility] ([place]) 1 [facility] [place] [address] * Ethanol (10/19/2024 5:11 PM CDT) [facility] Ethanol <10 <=10 mg/dL Comment: Interpretive Data Legal limit of intoxication > or = 80 mg/dL Levels > or = 400 mg/dL are potentially TOXIC. Current interpretive data was last revised on 2018. Blood 10/19/2024 5:11 PM CDT 10/19/2024 5:14 PM CDT Lars Watson MD LAB BLOOD ORDERABLES Final R esult Performing Organization Address [facility] de Phone Number [facility] ([place]) [address] [place] [address] * Comprehensive metabolic panel (10/19/2024 5:11 PM CDT) Pathologist [facility] Sodium 140 135 - 145 mmol/L Potassium, pl 4.0 3.3 - 4.9 mmol/L [facility] ([place]) Chloride 104 97 - 110 mmol/L [facility] ([place]) CO2 23 22 - 32 mmol/L [facility] ([place]) Anion gap 13 2 - 15 mmol/L [facility] ([place]) BUN 14 6 - 25 mg/dL [facility] ([place]) Creatinine 0.73 0.60 - 1.10 mg/dL [facility] ([place]) Glucose 120 70 - 199 mg/dL [facility] ([place]) Comment: Interpretive Data Fasting glucose >/= 126 mg/dl is diagnostic for diabetes. Fasting is defined as no caloric intake for at least 8 hours. Fasting glucose between 100 mg/dl to 125 mg/dl is diagnostic of prediabetes. In a patient with classic symptoms of hyperglycemia or hyperglycemic crisis, a random glucose >/= 200 mg/dl is diagnostic for diabetes. In the absence of unequivocal hyperglycemia, results should be confirmed by repeat testing. The classification and Diagnosis of Diabetes Diabetes Care 2021; 46: S19-S40. Current interpretive data was last revised 2022. Calcium 9.1 8.5 - 10.3 mg/dL [facility] ([place]) Bilirubin, total <0.2 0.1 - 1.2 mg/dL [facility] ([place]) Protein, pl 6.5 6.5 - 8.5 g/dL [facility] ([place]) Albumin 4.1 3.5 - 5.0 g/dL [facility] ([place]) Alk phos 97 40 - 130 Units/L [facility] ([place]) ALT 20 7 - 45 Units/L [facility] ([place]) AST 28 10 - 45 Units/L [facility] ([place]) Blood 10/19/2024 5:11 PM CDT 10/19/2024 5:14 PM CDT us Lars Watson MD LAB BLOOD ORDERABLES Final R esult [facility] ([place]) 1 [facility] Department [place] [address] * ECG 12 lead (10/19/2024 5:01 PM CDT) 10/19/2024 5:01 PM CDT Narrative [facility] - 10/22/2024 7:20 AM CDT Vent Rate: 87 bpm RR Interval: 689 msec PA Interval: 158 msec QRS Duration: 90 msec QT Interval: 337 msec QTC Interval: 381 msec P-R-T Benedict: 52 - 28 - 28 degrees IMPRESSION: SINUS RHYTHM NORMAL ECG Compared to prior EKG, heart rate has increased Electronically Signed By: Terry Sanders MD us Lars Watson MD ECG ORDERABLES Final Result [facility] * PA CRITICAL CARE ILL/INJURED PATIENT INIT 30-74 MIN (10/18/2024 7:00 AM CDT) Narrative Mikhail Farrell MD - 10/18/2024 7:00 AM CDT Mikhail Farrell MD 10/22/2024 4:05 PM Critical Care Performed by: Mikhail Farrell MD Authorized by: Gary Pineda MD Critical care provider statement: As reflected in the history, physical exam, orders, notes, and/or MDM, I was personally present while the patient was critically ill and provided critical care services for 35 minutes, excluding time involved in separately billable procedures. Critical care was necessary to treat or prevent imminent or life-threatening deterioration of the following condition(s): traumatic brain injury Critical care was time spent by me providing the following: continuous telemetry, continuous pulse oximetry, interpretation of bedside monitors, imaging, and arterial/venous lab draws and serial bedside patient exams frequent neurologic exams and initiation of anti-epileptic therapy I provided emergent necessary critical care medicine services to this patient. I ordered and reviewed test results and/or imaging studies. I spent time discussing the management of this critically ill patient with consultants and the medical staff. I spent time discussing the management and therapeutic options for this critically ill patient with the patient themselves or with the appropriate designated surrogate decision-maker. I spent time documenting in the medical record. Gary Pineda MD IN CLINIC/BEDSIDE LYNN BOURGEOIS Final Result * Hepatitis C antibody (12/28/2021 7:29 AM CDT) Hep C Ab Nonreactive Nonreactive [facility] ([place]) Comment: Interpretive Data Nonreactive: Antibodies to HCV not detected. Does NOT exclude the possibility of recent exposure to HCV. Equivocal: Equivocal for HCV antibodies. Supplemental molecular testing will be automatically performed to determine infection status in accordance with current CDC screening recommendations. Reactive: Positive for HCV antibodies. This may represent current or past HCV infection. Supplemental molecular testing will be automatically performed to determine current infection status in accordance with current CDC screening recommendations. Interpretive data was last revised on 2019. Testing performed by: [facility], [address] [place] [address], [place]., [address] Blood 12/28/2021 7:29 AM CDT 12/28/2021 2:35 PM CDT Mirella Strickland MD LAB MICROBIOLOGY - NERAL ORDERABLES Final Result [facility] ([place]) 1 [facility] Department [place] [address] * Dexa Axial Skeleton Bone Density 1 or 2 Site (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) Anatomical Region Laterality Modality Body N/A Other 08/10/2021 4:18 PM MOVIE MACHINE OPERATOR Narrative 08/10/2021 4:43 PM MOVIE MACHINE OPERATOR EXAM DESCRIPTION: DEXA AXIAL SKELETON BONE DENSITY 1 OR MORE SITES REASON FOR STUDY: 60 year old postmenopausal female with given history of age related osteoporosis without current pathological fracture. Sdet/Model: Pictarine Discovery SL (S/N [id number]) CLINICAL INFORMATION: Current height: 63.3 inches Maximum height: 64 inches Weight: 138 pounds Risk factors: None reported COMPARISON: 07/16/2019 FINDINGS: AP LUMBAR SPINE L1-L4: Total BMD is 0.920 g/cm2 T-score is -1.2 Most recent prior BMD was 0.925 g/cm2 There has been a 0.6% decrease in BMD which is not statistically significant. LEFT HIP: Current Total BMD is 0.698 g/cm2 T-score is -2.0 Most recent prior Total BMD was 0.663 g/cm2 There has been a 5.3% increase in BMD which is statistically significant. Current femoral neck BMD is 0.543 g/cm2 T-score is -2.8 IMPRESSION: Osteoporosis (based on left femoral neck BMD). REFERENCE: Bone mineral density: Normal (T-score above or = -1.0) Low bone mass (T-score between -1.0 and -2.5) replaces the previously used term osteopenia Osteoporosis (T-score = or below -2.5) Medical evaluation for secondary causes of low bone mineral density may be appropriate. FRAX is a World Health Organization validated fracture risk assessment tool that calculates a person's 10 year probability of a major osteoporosis related fracture and hip fracture. According to the National Osteoporosis Foundation guidelines, postmenopausal women and men age 50 or older with low bone mass and a 10 year probability of a major osteoporosis related fracture = or greater than 20% or a 10 year probability of a hip fracture = or greater than 3% should be considered for treatment. For further information, including treatment recommendations, please refer to the 2013 ISCD Official Positions (http://www.iscd.org) and the NOF's Clinician's Guide to Prevention and Treatment of Osteoporosis (http://www.nof.org/professionals/clinical-guidelines) THIS IS AN ELECTRONICALLY VERIFIED FINAL REPORT 08/10/2021 4:43 PM - Electronically signed by Hebert Burkett M.D. MD: Report ID: [id number] Reading Location: [place] [address] Procedure Note Hebert Burkett MD - 08/10/2021 EXAM DESCRIPTION: DEXA AXIAL SKELETON BONE DENSITY 1 OR MORE SITES REASON FOR STUDY: 60 year old postmenopausal female with givenhistory of age related osteoporosis without current pathological fracture. Sdet/Model: Pictarine Discovery SL (S/N [id number]) CLINICAL INFORMATION: Current height: 63.3 inches Maximum height: 64 inches Weight: 138 pounds Risk factors: None reported COMPARISON: 07/16/2019 FINDINGS: AP LUMBAR SPINE L1-L4: Total BMD is 0.920 g/cm2 T-score is -1.2 Most recent prior BMD was 0.925 g/cm2 There has been a 0.6% decrease in BMD which is not statisticallysignificant. LEFT HIP: Current Total BMD is 0.698 g/cm2 T-score is -2.0 Most recent prior Total BMD was 0.663 g/cm2 There has been a 5.3% increase in BMD which is statisticallysignificant. Current femoral neck BMD is 0.543 g/cm2 T-score is -2.8 IMPRESSION: Osteoporosis (based on left femoral neck BMD). REFERENCE: Bone mineral density: Normal (T-score above or = -1.0) Low bone mass (T-score between -1.0 and -2.5) replaces thepreviously used term osteopenia Osteoporosis (T-score = or below -2.5) Medical evaluation for secondary causes of low bone mineral density may be appropriate. FRAX is a World Health Organization validated fracture risk assessmenttool that calculates a person's 10 year probability of a major osteoporosisrelated fracture and hip fracture. According to the National OsteoporosisFoundation guidelines, postmenopausal women and men age 50 or older with low bonemass and a 10 year probability of a major osteoporosis related fracture = or greater than 20% or a 10 year probability of a hip fracture = or greaterthan 3% should be considered for treatment. For further information, including treatment recommendations, please referto the 2013 ISCD Official Positions (http://www.iscd.org) and the NOF's Clinician's Guide to Prevention and Treatment of Osteoporosis (http://www.nof.org/professionals/clinical-guidelines) THIS IS AN ELECTRONICALLY VERIFIED FINAL REPORT 08/10/2021 4:43 PM - Electronically signed by Hebert Burkett M.D. MD: Report ID: [id number] Reading Location: [place] [address] Soo Arroyo NP IMG DXA PROCEDURES Final Resul t * Screening Mammogram Bilateral W Manuel (08/08/2021 1:14 PM MOVIE MACHINE OPERATOR) Anatomical Region Laterality Modality Breast Bilateral Mammography 08/10/2021 9:04 AM MOVIE MACHINE OPERATOR Impressions 08/10/2021 9:04 AM MOVIE MACHINE OPERATOR There is no mammographic evidence of malignancy. A 1 year screening mammogram is recommended. BI-RADS: 1 - Negative. The patient has been or will be contacted. The patient will be entered into a reminder system with a target due date of 1 year for her next mammogram. Electronically signed by: Hebert Burkett M.D. Narrative 08/10/2021 9:04 AM MOVIE MACHINE OPERATOR EXAMINATION: SCREENING MAMMOGRAM BILATERAL W MANUEL ORDERING HEALTHCARE PROVIDER: SOO ARROYO HISTORY: Routine screening mammography. COMPARISON: 07/28/2020, 07/02/2019, 05/27/2018, 05/26/2017 TECHNIQUE: CC and MLO views of the bilateral breasts were obtained with digital technique using breast tomosynthesis with C view. Computer aided detection was utilized. FINDINGS: DENSITY: There are scattered fibroglandular elements in the bilateral breasts. BREASTS: There are no suspicious masses, suspicious calcifications, or other suspicious findings in either breast. There has been no suspicious interval change. Soo Arroyo STORE WORKER IMG MAMMO PROCEDURES Final Res ult * Colonoscopy (10/27/2017) Anatomical Region Laterality Modality Other Historical Provider ENDOSCOPY PROCEDURES Munira l Result from Last 3 Months or Most Recently Relevant to Health Maintenance [place] [address] [employer] [facility] [facility] Advance Directives For more information, please contact: [phone] * Full Code (Latest Code Status on File) Date Activated Date Inactivated Comments 12/21/2021 9:48 AM 12/21/2021 6:35 PM Care Teams Word Processor Operator Relationship Specialty Start Date End Date Justin Kessler PA [address] [place] [address] PCP - General Family Practice 03/17/23 Miscellaneous, Not In File 10/20/24
--- OUTSIDE RECORDS SUMMARY | 2024-11-21 13:49 | XMS_ITS | Referral Summary ---
Author Organization [facility] Address [address] [place] [address] Care Team Providers Care Party Plan Dealer Name Role Phone Justin Kessler Primary Care Provider [phone] Miscellaneous, Not In File Unavailable Unava ilable Encounters Date Type Department Care Team Description 11/21/[address] [address] Mariela Martin 10/24/2024 Orders Only [facility] [address] [facility] Advanced Medicine 6th [place] [address] [place] [address] Rosangela Barros RN Subarachnoid bleed (HCC) (Primary Dx) 10/24/2024 Telephone [facility] [address] [place] [address] Juanita Ashley 10/19/2024 10:55 PM CDT - 10/20/2024 7:00 PM CDT Hospital Encounter [address] [phone] Mikhail Farrell MD Vellimana, MD Edwin Perez, Gary Bryant MD Subarachnoid bleed (HCC) (Primary Dx); Closed head injury, subsequent encounter Discharge Disposition: Discharge to home or self care 10/19/2024 10:07 PM CDT - 10/19/2024 11:59 PM CDT Hospital Encounter [facility] Emergency, Room R Discharge Disposition: Discharge to home or self care 10/19/2024 4:31 PM CDT - 10/19/2024 11:59 PM CDT Hospital Encounter [facility] Emergency, Room R Discharge Disposition: Discharge to home or self care 10/19/2024 4:47 PM CDT - 10/19/2024 10:05 PM CDT Emergency [facility] Emergency Department [address] [place] [address] Lars Watson MD Subarachnoid hemorrhage (HCC) (Primary Dx) Discharge Disposition: Discharge to a snf care hospital from Last 3 Months Allergies No known active allergies Medications omeprazole [...] Calle MD 30 tablet 03/19/20 23 Active celecoxib (CeleBREX) 200 mg capsule Take by mouth daily 03/22/20 23 Active acetaminophen 500 mg capsule Take 2 capsules (1,000 mg total) by mouth every 6 (six) hours as needed for pain . Do not exceed 4 grams daily. 10/21/19 25 Active docusate sodium (COLACE) 100 mg capsuleIndication s:constipation,St ool Softener Take 1 capsule (100 mg total) by mouth 2 (two) times a day 30 capsule 10/21/19 25 Active levETIRAcetam (KEPPRA) 500 mg tabletIndications :seizure prophylaxis Take 1 tablet (500 mg total) by mouth 2 (two) times a day for 7 days 13 tablet 10/21/19 25 Active lidocaine (LIDODERM) 5 %Indications:pain Place 1 patch on the skin daily for 12 hours Remove & discard patch within 12 hours or as directed by MD. Apply to right shoulder. 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 [employer] at [employer] Encounter for wellness examination 12/23/2021 Assessment & Plan (12/23/2021 11:12 AM CDT): Ordered lipid, hgb a1c, HIV, hep c, TSH, and free t4 Colonoscopy: up to date Pap smear:follows with ob Mammo: up to date F/u in 1 year for annual Dyspnea on exertion 11/30/2021 Overview (11/30/2021): Added automatically from request for surgery [id number] Assessment & Plan (01/27/2022 1:02 PM CDT): Worsening Seen by cardio and unlikely to be caused by the heart Had stress test and other imaging Chest xray ordered. If negative will consider referral to pulmonary Chest pain 11/30/2021 Overview (11/30/2021): Added automatically from request for surgery [id number] Assessment & Plan (12/23/2021 11:08 AM CDT): Likely stress induced Cardiac cath negative, echo unremarkable F/u prn and continue with sertraline for the anxiety Diverticulosis 05/25/2021 Gastroesophageal reflux disease 05/25/2021 Assessment & Plan (12/23/2021 11:07 AM CDT): Restart omeprazole F/u prn Abdominal pain 04/28/2021 Overview (04/28/2021): Added automatically from request for surgery [id number] Assessment & Plan (03/28/2023 2:57 PM CDT): [...] (04/28/2021): Added automatically from request for surgery [id number] Other microscopic hematuria 01/12/2021 12/10/2021 Gallbladder polyp [...] toe 10/15/2014 02/16/2017 Overview (09/09/2016): Toe abrasion Immunizations Immunization Administration Dates Next Due Influenza, Quadrivalent, Spl it, Preservative Free, Intramuscular 04/20/2021,05/27/2020,03/05/2019,05/12 Influenza, Split 06/25/2013,06/20/2012 Influenza, Trivalent, Adjuva nted, Intramuscular 04/30/2014 Influenza, Trivalent, Recomb inant, Egg Free, Preservative Free, Antibiotic Free, IM (FLUBLOK) 04/30/2014 Influenza, Unspecified 01/27/2022(Deferr ed: Patient Refused),01/08/2021(Deferred: Patient Refused),02/01/2020(Deferred: Patient Refused),05/18/2018(Deferred: Patient Refused),04/06/2018(Deferred: Patient Refused) Pfizer SARS-CoV-2 Monovalent Vaccination (12+ Yrs) PURPLE 01/26/2021,01/08/2021 Td, adsorbed 08/14/1996 Tdap 02/25/2024 Social History Tobacco Use Types Packs/Day Years [...] on file Legal Sex Female 4:25 PM [employer]NA[employer] Gender Identity Not on file Sexual Orientation Not on file Last Filed Vital Signs [...] 10/19/2024 11:03 PM CDT Plan of Treatment Not on file Procedures Procedure Name Priority Date/Time Associated Diagnosis Comments URINALYSIS, MICROSCOPIC ONLY STAT 10/20/2024 9:22 AM CDT URINALYSIS AND REFLEX TO MICROSCOPIC AND CULTURE STAT 10/20/2024 9:22 AM CDT B CHECK SAMPLE STAT 10/20/2024 7:21 AM CDT [place] CRITICAL CARE ILL/INJURED PATIENT INIT 30-74 MIN [...] CHEMISTRIES, VENOUS Routine 10/19/2024 10:59 PM CDT [place] CRITICAL CARE ILL/INJURED PATIENT INIT 30-74 MIN [...] ECG 12-LEAD STAT 10/19/2024 5:01 PM CDT [place] CRITICAL CARE ILL/INJURED PATIENT INIT 30-74 MIN Routine 10/18/2024 7:00 AM CDT HEPATITIS C ANTIBODY Routine 12/28/2021 7:29 AM CDT Routine medical exam Need for hepatitis C screening test DEXA AXIAL SKELETON BONE DENSITY 1 OR MORE SITES Schedule Routine, Read Routine (OP Routine) 08/10/2021 11:37 AM BUSINESS ANALY[employer] Age-related osteoporosis without current pathological fracture SCREENING MAMMOGRAM BILATERAL W MANUEL Schedule Routine, Read Routine (OP Routine) 08/08/2021 1:14 PM BUSINESS ANALY[employer] Encounter for screening mammogram for malignant neoplasm of breast COLONOSCOPY Routine 10/27/2017 from Last 3 Months or Most Recently Relevant to Health Maintenance Results * (ABNORMAL) Urinalysis reflex to microscopic and culture Urine, bladder (10/20/2024 9:22 AM CDT) Color, ur Yellow Yellow Clarity, ur Clear Clear [facility] Specific gravity, ur >1.042(H) 1.003 - 1.[address] [facility] pH, urine 6.5 [facility] Comment: Interpretive Data U rine pH is affected by diet, medications, systemic acid-base disturbances, and renal tubular function. pH may affect urinary stone formation. For example, urine pH below 6.0 may help reduce the tendency for calcium phosphate stones and pH greater than 6.0 may reduce the tendency for uric acid stone formation. Source: [facility] [employer] ([employer]) Current Interpretive Data was last revised on 2017 Protein, ur ql Trace Negative [facility] Glucose, ur ql Negative Negative [facility] Ketones, ur Negative Negative [facility] Bilirubin, ur Negative Negative [facility] Blood, ur Trace(A) Negative [facility] Urobilinogen, ur <2.0 <2.0 mg/dL [facility] Nitrite, ur Negative Negative [facility] Leukocyte esterase, ur Negative Negative [facility] UA reflex comment Reflex to microscopic UA will be performed. [facility] Urine, bladder 10/20/2024 9: 22 AM CDT 10/20/2024 9:29 AM CDT us John Montejo MD LAB MICROBIOLOGY - GEN ERAL ORDERABLES Final Result [facility] [place] [address] * (ABNORMAL) Urinalysis, microscopic only (10/20/2024 9:22 AM CDT) WBC, ur 0-5 0 - 5 /HPF RBC, ur 6-10(A) 0 - 2 /HPF [facility] Epithelial cells, squamous, ur 1-5 0 - 5 /HPF [facility] Bacteria, ur Trace(A) [facility] Mucous, ur Present(A) [facility] Culture Reflex Comment Reflex conditions for urine culture (WBC >10) not met. [facility] Urine, bladder 10/20/2024 9: 22 AM CDT 10/20/2024 9:29 AM CDT Shiloh Conrad MD LAB URINE ORDERABLES Fi nal Result Performing Organization Address [facility] Co de Phone Number [facility] [place] [address] * Check Sample (10/20/2024 7:21 AM CDT) ABO Rh O Positive [facility] OTHER 10/20/2024 7:21 AM CDT 10/20/2024 7:32 AM CDT us Lars Watson MD LAB BLOOD ORDERABLES Final R esult Performing Organization Address [facility] Co de Phone Number [facility] [place] [address] [facility] * [place] CRITICAL CARE ILL/INJURED PATIENT INIT 30-74 MIN [...] record. us Gary Pineda MD IN CLINIC/BEDSIDE MAJORAlmita BK Final Result * CT Head WO Contrast [...] by: Nina Juan M.D. Shiloh Conrad MD IM CT PROCEDURES Final Result * XR Elbow [...] by: Moose Bynum MD Shiloh Conrad MD IM XR PROCEDURES Final Result * XR Shoulder [...] it. Electronically signed by: Moose Bynum MD [facility] 10/20/2024 9:58 AM CDT EXAMINATION: XR SHOULDER [...] MD LAB BLOOD ORDERABLES Fi nal Result [facility] [place] [address] * Differential, auto (10/19/2024 11:54 PM CDT) Neutrophil abs 6.27 1.50 - 6.50 K/cumm Imm gran abs 0.03 0.00 - 0.10 K/cumm [facility] Lymphocyte abs 1.51 0.80 - 3.30 K/cumm [facility] Monocyte abs 0.71 0.20 - 0.80 K/cumm [facility] Eosinophil abs 0.07 0.00 - 0.50 K/cumm [facility] Basophil abs 0.04 0.00 - 0.10 K/cumm [facility] Neutrophil pct 72.7 % [facility] Comment: Interpretive Data Percent cell count reference ranges are not reported, since discordance with absolute values may lead to misinterpretation of CBC data. Current Interpretive Data was last revised on 2017. Imm gran pct 0.3 % [facility] Comment: Interpretive Data Percent cell count reference ranges are not reported, since discordance with absolute values may lead to misinterpretation of CBC data. Current Interpretive Data was last revised on 2017. Lymphocyte pct 17.5 % [facility] Comment: Interpretive Data Percent cell count reference ranges are not reported, since discordance with absolute values may lead to misinterpretation of CBC data. Current Interpretive Data was last revised on 2017. Monocyte pct 8.2 % [facility] Comment: Interpretive Data Percent cell count reference ranges are not reported, since discordance with absolute values may lead to misinterpretation of CBC data. Current Interpretive Data was last revised on 2017. Eosinophil pct 0.8 % [facility] Comment: Interpretive Data Percent cell count reference ranges are not reported, since discordance with absolute values may lead to misinterpretation of CBC data. Current Interpretive Data was last revised on 2017. Basophil pct 0.5 % [facility] Comment: Interpretive Data Percent cell count reference ranges are not reported, since discordance with absolute values may lead to misinterpretation of CBC data. Current Interpretive Data was last revised on 2017. Blood 10/19/2024 11:5 4 PM CDT 10/20/2024 12:03 AM CDT us Shiloh Conrad MD LAB BLOOD ORDERABLES Fi nal Result [facility] [place] [address] * CBC with auto differential (10/19/2024 11:54 PM CDT) [facility] WBC 8.63 3.80 - 9.90 K/cumm Hgb 12.0 11.9 - 15.5 g/dL [facility] Hct 36.5 35.6 - 45.5 % [facility] Plt 246 150 - 400 K/cumm [facility] MPV 9.9 9.1 - 12.3 fL [facility] RBC 3.92 3.90 - 5.20 M/cumm [facility] MCV 93.1 81.3 - 96.4 fL [facility] MCH 30.6 27.1 - 33.3 pg [facility] MCHC 32.9 32.3 - 35.7 g/dL [facility] RDW CV 13.8 11.1 - 14.9 % [facility] RDW SD 46.7 35.7 - 48.1 fL [facility] NRBC abs 0.00 0.00 - 0.01 K/cumm [facility] Blood 10/19/2024 11:5 4 PM CDT 10/20/2024 12:03 AM CDT Shiloh Conrad MD LAB BLOOD ORDERABLES Fi nal Result Performing Organization Address [facility] Co de Phone Number [facility] [place] [address] * aPTT (10/19/2024 11:54 PM CDT) [facility] aPTT 28 28 - 38 sec Comment: Interpretive Data Heparin therapeutic range: 66.0 - 100.0 seconds. Range based on correlation with therapeutic heparin activity range of 0.3 - 0.7 Units/mL. Current interpretive data was last revised on 2023. Blood 10/19/2024 11:5 4 PM CDT 10/20/2024 12:08 AM CDT Shiloh Conrad MD LAB BLOOD ORDERABLES Fi nal Result Performing Organization Address City/[facility] [place] [address] * Protime-INR (10/19/2024 11:54 PM CDT) Pathologist [facility] PT 10.6 9.7 - 13.0 sec INR 0.98 0.90 - 1.20 [facility] Comment: Interpretive data Oral anticoagulant therapeutic [...] ORDERABLES Fi nal Result Performing Organization Address [facility] [place] [address] * Type and screen (10/19/2024 11:54 PM CDT) [facility] Jeanette, indirect Negative ABO Rh O Positive [facility] Blood 10/19/2024 11:5 4 PM CDT 10/20/2024 12:02 AM CDT Narrative [facility] - 10/20/2024 12:55 AM CDT Has the patient had Daratumumab or Isatuximab in the past 6 months?->Unknown Shiloh Conrad MD LAB BLOOD BANK TEST ORD ERABLES Final Result Performing Organization Address [facility] [place] [address] * Comprehensive metabolic panel (10/19/2024 11:54 PM CDT) [facility] Sodium 142 135 - 145 mmol/L Potassium, pl 4.0 3.3 - 4.9 mmol/L [facility] Chloride 106 97 - 110 mmol/L [facility] CO2 29 22 - 32 mmol/L [facility] Anion gap 7 2 - 15 mmol/L [facility] BUN 13 6 - 25 mg/dL [facility] Creatinine 0.70 0.60 - 1.10 mg/dL [facility] Glucose 124 70 - 199 mg/dL [facility] Comment: Interpretive Data Fasting glucose >/= [...] 2022. Calcium 8.8 8.5 - 10.3 mg/dL [facility] Bilirubin, total 0.3 0.1 - 1.2 mg/dL [facility] Protein, pl 6.5 6.5 - 8.5 g/dL [facility] Albumin 3.8 3.5 - 5.0 g/dL [facility] Alk phos 93 40 - 130 Units/L [facility] ALT 21 7 - 45 Units/L [facility] AST 31 10 - 45 Units/L [facility] Blood 10/19/2024 11:5 4 PM CDT 10/20/2024 12:04 AM CDT us Shiloh Conrad MD LAB BLOOD ORDERABLES Fi nal Result [facility] Department [place] [address] * (ABNORMAL) POC Blood Gas and Chemistries, Venous - (10/19/2024 10:59 PM CDT) [facility] pH, Anabel POC 7.40 7.32 - 7.43 pCO2, anabel POC 48 40 - 50 mmHg [facility] pO2, anabel POC 43 mmHg [facility] Na, POC 140 135 - 145 mmol/L [facility] K POC 4.1 3.3 - 4.9 mmol/L [facility] Comment: Interpretive Data Not all point of care methods assess for hemolysis. Confirm with instrument and retest K+ if not consistent with clinical signs and symptoms. Current Interpretive Data was last revised on 2023. Cl, POC 106 97 - 110 mmol/L [facility] Ionized Ca, POC 4.73 4.50 - 5.10 mg/dL [facility] Glucose, POC 125 70 - 199 mg/dL [facility] Lactate POC 1.0 0.7 - 2.0 mmol/L [facility] MetHb, Anabel POC 1.0 0.0 - 1.9 % [facility] O2 Sat, Anabel POC (Sissy) 70 % [facility] Base excess, POC 4.1 mmol/L [facility] Hct, POC 36.0(L) 36.3 - 45.3 % [facility] Total Hb, POC 12.1 11.9 - 15.5 g/dL [facility] Blood 10/19/2024 10:5 9 PM CDT 10/19/2024 10:59 PM CDT Lars Watson MD LAB POCT ORDERABLES - DEVICE Final Result [facility] [place] [address] * [place] CRITICAL CARE ILL/INJURED PATIENT INIT 30-74 MIN [...] Polytrauma, blunt Patient fell from second story [email or web address] in her home, struck head. LOC. Denies [...] Jai Leiva M.D. CH: ANITRA Report ID: [id number] Reading Location: [place] [address] Procedure Note Jai Leiva Jr., MD - 10/19/2024 EXAM DESCRIPTION: CT CHEST ABDOMEN PELVIS W CONTRAST REASON FOR STUDY: Polytrauma, blunt Patient fell from second story balcony in [...] by Jai Leiva M.D. CH: Report ID: [id number] Reading Location: [id number] Lars Watson MD IMG CT PROCEDURES Final Resu lt * CT Cervical Spine WO Contrast (10/19/2024 7:11 PM CDT) Anatomical Region Laterality Modality Spine N/A Computed Tomogra phy 10/19/2024 7:29 PM CDT Narrative 10/19/2024 7:35 PM CDT EXAM DESCRIPTION: CT CERVICAL SPINE WO CONTRAST REASON FOR STUDY: Neck trauma, impaired ROM (Age 16-64y) Patient fell from second story [email or web address] in her home, struck head. LOC. TECHNIQUE: [...] by Jai Leiva M.D. CH: Report ID: [id number] Reading Location: [place] [address] Procedure Note Jai Leiva Jr., MD - 10/19/2024 EXAM DESCRIPTION: CT CERVICAL SPINE WO CONTRAST REASON FOR STUDY: Neck trauma, impaired ROM (Age 16-64y) Patient fell from second story [place] in her home, struck head. LOC. TECHNIQUE: [...] C4 and grade 1 retrolisthesis C4 on [id number] to the prior radiograph. THIS IS AN ELECTRONICALLY VERIFIED FINAL REPORT 10/19/2024 7:35 PM - Electronically signed by Jai eLiva M.D. CH: Report ID: [id number] Reading Location: [id number] Lars Watson MD IMG CT PROCEDURES Final Resu lt * CT Head WO Contrast (10/19/2024 7:11 PM CDT) Anatomical Region Laterality Modality Head and Neck N/A Computed Tomogra phy 10/19/2024 7:24 PM CDT Narrative 10/19/2024 7:46 PM CDT EXAM DESCRIPTION: CT HEAD WO CONTRAST REASON FOR STUDY: Head trauma, moderate-severe Patient fell from second story [place] in her home, struck head. LOC. Denies [...] by Jai Leiva M.D. CH: Report ID: [id number] Reading Location: [id number] Procedure Note Jai Leiva Jr., MD - 10/19/2024 EXAM DESCRIPTION: CT HEAD WO CONTRAST REASON FOR STUDY: Head trauma, moderate-severe Patient fell from second story [place] in her home, struck head. LOC.Denies head, [...] discussed with Dr. Watson by Dr. Leiva atapproximately 7:46 pm central time on 10/19/2024 . THIS IS AN ELECTRONICALLY VERIFIED FINAL REPORT 10/19/2024 7:46 PM - Electronically signed by Jai Leiva M.D. CH: Report ID: [id number] Reading Location: [id number] us Lars Watson MD IMG CT PROCEDURES [...] of Race in Diagnosing Kidney Disease, JASN 202). The CKD-EPI equation should not be used for patients with unstable renal function and has not been validated in children and those over 70. Current interpretive data was last reviewed 2021. Blood 10/19/2024 5:11 PM CDT 10/19/2024 5:14 PM CDT us Lars Watson MD LAB BLOOD ORDERABLES Final R esult [facility] [place]) [facility] Department of Laboratories [place], [place] [id number] * (ABNORMAL) Differential, auto (10/19/2024 5:11 PM [...] Final R esult [facility] ([place]) [facility] Department [place] [address] * (ABNORMAL) CBC with auto differential (10/19/2024 5:11 PM CDT) Pathologist [facility] WBC 8.57 3.80 - 9.90 K/cumm Hgb [...] RDW SD 47.9 35.7 - 48.1 fL [facility]) NRBC abs 0.00 0.00 - 0.01 K/cumm [facility] ([place]) Blood 10/19/2024 5:11 PM CDT 10/19/2024 5:14 PM CDT Lars Watson MD LAB BLOOD ORDERABLES Final R esult [facility] ([place]) [facility] Department [place] [address] * Ethanol (10/19/2024 5:11 PM CDT) Ethanol <10 <=10 mg/dL Comment: Interpretive Data Legal limit of intoxication > or = 80 mg/dL Levels > or = 400 mg/dL are potentially TOXIC. Current interpretive data was last revised on 2018. Blood 10/19/2024 5:11 PM CDT 10/19/2024 5:14 PM CDT Lars Watson MD LAB BLOOD ORDERABLES Final R esult [facility] ([place]) [facility] Department [place] [address] * Comprehensive metabolic panel (10/19/2024 5:11 PM CDT) Sodium 140 135 - 145 mmol/L Potassium, pl 4.0 3.3 - 4.9 mmol/L [facility] Chloride 104 97 - 110 mmol/L [facility] CO2 23 22 - 32 mmol/L [facility] Anion gap 13 2 - 15 mmol/L [facility] BUN 14 6 - 25 mg/[facility] Creatinine 0.73 0.60 - 1.10 mg/dL [facility] ([place]) Glucose 120 70 - 199 mg/dL [facility] ([place]) Comment: Interpretive Data Fasting glucose >/= [...] classification and Diagnosis of Diabetes Diabetes Care 202; 46: S19-S40. Current interpretive data was last [...] ORDERABLES Final R esult Performing Organization Address City/[facility] Co de Phone Number [facility] 1 [facility] [place] [address] * ECG 12 lead (10/19/2024 5:01 PM CDT) 10/19/2024 5:01 PM CDT Narrative [facility] - 10/22/2024 7:20 AM CDT Vent Rate: 87 bpm RR Interval: 689 msec [place] Interval: 158 msec QRS Duration: 90 msec QT Interval: 337 msec QTC Interval: 381 msec P-R-T [place]: 52 - 28 - 28 degrees IMPRESSION: SINUS RHYTHM NORMAL ECG Compared to prior EKG, heart rate has increased Electronically Signed By: Terry Sanders MD Lars Watson MD ECG ORDERABLES Final Result Performing Organization Address [facility] Co de Phone Number [facility] [employer] [facility] * [place] CRITICAL CARE ILL/INJURED PATIENT INIT 30-74 MIN (10/18/2024 7:00 AM CDT) Narrative Mikhail Farrell MD - 10/18/2024 7:00 AM CDT Mihkail Farrell MD 10/22/2024 4:05 PM Critical Care [...] Hep C Ab Nonreactive Nonreactive [facility] ([place]) Comment: Interpretive Data Nonreactive: Antibodies to HCV [...] last revised on 2019. Testing performed by: [facility], [address] [place] [address], [place]., [address] Blood 12/28/2021 7:29 AM CDT 12/28/2021 2:35 PM CDT Mirella Strickland MD LAB MICROBIOLOGY - NERAL ORDERABLES Final Result [facility] ([place]) [facility] Department [place] [address] * Dexa Axial Skeleton Bone Density 1 or 2 Site (08/10/2021 11:37 AM BUSINESS ANA[employer]) Anatomical Region Laterality Modality Body N/A Other 08/10/2021 4:18 PM BUSINESS ANA[employer] Narrative 08/10/2021 4:43 PM BUSINESS [employer]NA[employer] EXAM DESCRIPTION: DEXA AXIAL SKELETON BONE DENSITY 1 OR MORE SITES REASON FOR STUDY: 60 year old postmenopausal female with given history of age related osteoporosis without current pathological fracture. Vacuum Cleaner Operator/Model: VidRocket SL (S/N [id number]) CLINICAL INFORMATION: Current height: 63.3 inches Maximum [...] by Hebert Burkett M.D. MD: Report ID: [id number] Reading Location: [place] [address] Procedure Note Hebert Burkett MD - 08/10/2021 EXAM DESCRIPTION: DEXA AXIAL SKELETON BONE DENSITY 1 OR MORE SITES REASON FOR STUDY: 60 year old postmenopausal female with givenhistory of age related osteoporosis without current pathological fracture. Vacuum Cleaner Operator/Model: The French Cellar (S/N [id number]) CLINICAL INFORMATION: Current height: 63.3 inches Maximum [...] by Hebert Burkett M.D. MD: Report ID: [id number] Reading Location: [place] [address] us Soo Arroyo NP IMG DXA PROCEDURES Final Resul t * Screening Mammogram Bilateral W Manuel (08/08/2021 1:14 PM BUSINESS ANALYST [employer]) Anatomical Region Laterality Modality Breast Bilateral Mammography 08/10/2021 9:04 AM BUSINESS ANALYST [employer] Impressions 08/10/2021 9:04 AM BUSINESS ANALYST [employer] There is no mammographic evidence of malignancy. A 1 year screening mammogram is recommended. BI-RADS: 1 - Negative. The patient has been or will be contacted. The patient will be entered into a reminder system with a target due date of 1 year for her next mammogram. Electronically signed by: Hebert Burkett M.D. Narrative 08/10/2021 9:04 AM BUSINESS ANALYST [employer] EXAMINATION: SCREENING MAMMOGRAM BILATERAL W MANUEL ORDERING [...] There has been no suspicious interval change. us Soo Arroyo NP IMG MAMMO PROCEDURES Final Res ult * Colonoscopy (10/27/2017) Anatomical Region Laterality Modality Other us Historical Provider ENDOSCOPY PROCEDURES Munira l Result from Last 3 Months or Most Recently Relevant to Health Maintenance Insurance [employer] [facility] Advance Directives For more information, please contact: [phone] * Full Code (Latest Code Status on File) Date Activated Date Inactivated Comments 12/21/2021 9:48 AM 12/21/2021 6:35 PM Care Teams Party Plan Dealer Relationship Specialty Start Date End Date Justin Kesselr PA [address] [place] [address] PCP - General Family Practice 03/17/23 Miscellaneous, Not In File 10/20/24
== END 2024-11-21 12:18 | disposition home or self-care (01) ==
LOC: ANHAUDIO 12:19
PROVIDERS: PCP Internal Medicine; Visit Provider Otolaryngology
DX: H90.6 Mixed conductive and sensorineural hearing loss, bilateral (principal); H60.543 Acute eczematoid otitis externa, bilateral; B36.9 Superficial mycosis, unspecified; H62.41 Otitis externa in other diseases classified elsewhere, right ear
CPT/HCPCS: 92557; 92567

== ENCOUNTER 2025-03-20 10:05 | Outpatient (CLI) | payer OTHER, SELFPAY ==
--- NOTE | ~2025-03-20 | XR_ITS ---
Examination: XR chest 2V Clinical History: G95.9 - Disease of spinal cord, unspecified NO SMOKER Comparison: None Technique: PA and Lateral Findings: Cardiomediastinal silhouette normal size and configuration. Nodular focus overlying posterior lateral left rib 8. No acute bony abnormality. Cholecystectomy clips. IMPRESSION: 1. Left lower lobe nodule not excluded. Recommend CT chest. Reviewed, dictated and finalized at location R.
--- NOTE | 2025-03-20 10:58 | ECG_ITS ---
Test Date: 2025-03-20 11:12:13 Measurements Intervals [place] Rate: 76 P: 49 ID: [id number] QRS: 17 QRSD: 82 T: 21 QT: 348 QTc: 394 Interpretive Statements SINUS RHYTHM VOLTAGE CRITERIA FOR LVH CONSIDER ANTERIOR MYOCARDIAL INFARCTION BASELINE ARTIFACT- I, II, III, AVR, AVL, AVF ABNORMAL ECG No previous ECG available for comparison Electronically Signed On 03-20-2025 12:18:51 CDT by Bruce Tucker D.O.
[2025-03-20 11:29] LABS: Hematocrit 44.9 % (37.0-47.0); Hemoglobin 14.1 g/dL (12.0-15.0); Mean Corpuscular HGB Conc 31.4 g/dl (32-36); Mean Corpuscular Hemoglobin 30.1 pg (26-34); Mean Corpuscular Volume 95.7 fl (80-100); Platelet Count Result 261 k/mm3 (150-375); Red Blood Count 4.69 M/mm3 (4.2-5.4); White Blood Count 5.4 K/mm3 (4.5-10.0)
[2025-03-20 11:39] LABS: INR 0.9; Partial Thromboplastin Time 25.1 Seconds (22.3-36.8); Prothrombin Time 12.2 Seconds (11.1-14.7)
[2025-03-20 11:40] LABS: Add Urine Microscopic? YES; Appearance Urine Clear (Clear); Glucose Urine UA Negative (Negative); Leukocyte Esterase Ur Negative LEU/UL (Negative); Nitrate Urine Negative (Negative); Non Pathogenic Casts 0-2; Specific Grav Ur 1.023 (1.001-1.035)
--- OUTSIDE RECORDS SUMMARY | 2025-03-20 11:45 | XMS_ITS | Encounter Summary ---
Author Organization [facility] Address [address] [place] [address] Care Team Providers Care Hostess Host Name Role Phone Justin Jacinto MD Primary Care Provider [phone] Justin Jacinto MD Primary Care Provider [phone] Justin Jacinto MD Primary Care Provider Mirella Strickland MD Primary Care Provide r Justin Kessler Primary Care Provider Miscellaneous, Not In File Unavailable Unava ilable Encounter Details Date Type Department Care Team (Late st Contact Info) Description 05/14/2011 Orders Only [facility] [place] Management [address] [place] [address] Justin Jacinto MD [address] [place] [address] [place] [address] Social History Tobacco Use Types Packs/Day Years Used Date Smoking Tobacco: Never Assessed Comments Unknown Sex and Gender Information Value Date Recorded Sex Assigned at Not on file 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 Gender Identity Not on file Sexual Orientation Not on file documented as of this encounter Plan of Treatment Not on file documented as of this encounter Procedures Procedure Name Priority Date/Time Associated Diagnosis Comments COLONOSCOPY Routine 05/14/2011 documented in this encounter Results * Colonoscopy (05/14/2011) Anatomical Region Laterality Modality Other Historical Provider ENDOSCOPY PROCEDURES Munira l Result documented in this encounter Visit Diagnoses Not on filedocumented in this encounter Additional Health Concerns Infection Onset Date Last Indicated Resolved Time COVID: Suspected 03/19/2023 03/19/2023 03/19/2023 6:36 PM CDT documented as of this encounter Care Teams Hostess Host Relationship Specialty Start Date End Date Justin Jacinto MD PCP - General 09/03/16 12/09/21 Justin Jacinto MD PCP - General 07/08/06 09/02/16 Justin Jacinto MD [address] [place] [address] PCP - General 12/10/21 12/22/21 Mirella Strickland MD [address] [place] [address] [address] [place] [address] PCP - General Family Medicine 12/23/21 03/16/23 Justin Kessler PA [address] [place] [address] PCP - General Family Practice 03/17/23 Miscellaneous, Not In File 10/20/24 documented as of this encounter
--- OUTSIDE RECORDS SUMMARY | 2025-03-20 11:45 | XMS_ITS | Encounter Summary ---
Author Organization [facility] Address [address] [facility] 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 PLANT OPERATOR documented as of this encounter Miscellaneous Notes * Telephone Encounter - Frances Cartwright RN - 08/17/2021 1:48 PM CDT Medication refilled and [facility] order for pediatric and [...] 19 Confirmed 03/24/2022 03/24/2022 022 12:16 AM CEMENT PRODUCTION PLANT OPERATOR documented as of this encounter Care Teams Audio Visual Technician Relationship Specialty Start Date End Date Justin Jacinto MD [address] [place] [id number] PCP - General Internal Medicine 10/27/17 documented as of this encounter
--- OUTSIDE RECORDS SUMMARY | 2025-03-20 11:45 | XMS_ITS | Encounter Summary ---
Author Organization [facility] Address [address] [place] [address] Phone Care Team Providers Care Combination Technician Name Role Phone Justin Jacinto MD Primary Care Provider [phone] Justin Jacinto MD Primary Care Provider [phone] Mirella Strickland MD Primary Care Provide r Justin Kessler Primary Care Provider [phone] Miscellaneous, Not In File Unavailable Unava ilable Encounter Details Date Type Department Care Team (Late st Contact Info) Description 10/04/2017 Orders Only [facility] ProviderMarco MD [address] [place] [address] Social History Tobacco Use Types Packs/Day Years Used Date Smoking Tobacco: Never Alcohol Use Standard Drinks/Week Comments Yes 0 (1 standard drink = 0.6 oz pur e alcohol) Comments No Sex and Gender Information Value Date Recorded Sex Assigned at Not on file 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 Gender Identity Not on file Sexual Orientation [...] documented as of this encounter Care Teams Combination Technician Relationship Specialty Start Date End Date Justin Jacinto MD PCP - General 09/03/16 12/09/21 Justin Jacinto MD [address] [place] [address] PCP - General 12/10/21 12/22/21 Mirella Strickland MD [address] [place] [address] PCP - General Family Medicine 12/23/21 03/16/23 Justin Kessler PA [address] [place] [address] PCP - General Family Practice 03/17/23 Miscellaneous, Not In File 10/20/24 documented as of this encounter
--- OUTSIDE RECORDS SUMMARY | 2025-03-20 11:45 | XMS_ITS | Encounter Summary ---
Author Organization [facility] Address [address] [place] [address] Care Team Providers Care Concrete Float Maker Name Role Phone Justin Jacinto MD Primary Care Provider [phone] Justin Jacinto MD Primary Care Provider [phone] Mirella Strickland MD Primary Care Provide r Justin Kessler Primary Care Provider [phone] Miscellaneous, Not In File Unavailable Unava ilable Encounter Details Date Type Department Care Team (Late st Contact Info) Description 11/16/2019 Telephone [facility] [address] [place] [id number] Apolonia Crawford, RT Social History Tobacco Use Types Packs/Day Years Used Date Smoking Tobacco: Never Smokeless Tobacco: Never Alcohol Use Standard Drinks/Week Comments Yes 0 (1 standard drink = 0.6 oz pur e alcohol) PHQ-2 Answer Date Recorded PHQ-2 Score 0 01/26/2019 Comments No Sex and Gender Information Value Date Recorded Sex Assigned at Not on file 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 Gender Identity Not on file Sexual Orientation Not on file documented as of this encounter Plan of Treatment Not on file documented as of this encounter Visit Diagnoses Not on filedocumented in this encounter Additional Health Concerns Infection Onset Date Last Indicated Resolved Time COVID: Suspected 03/19/2023 03/19/2023 03/19/2023 6:36 PM CDT documented as of this encounter Care Teams Concrete Float Maker Relationship Specialty Start Date End Date Justin Jacinto MD PCP - General 09/03/16 12/09/21 Justin Jacinto MD [address] [place] [address] PCP - General 12/10/21 12/22/21 Mirella Strickland MD [address] [place] [address] PCP - General Family Medicine 12/23/21 03/16/23 Justin Kessler PA [address] [place] [address] PCP - General Family Practice 03/17/23 Miscellaneous, Not In File 10/20/24 documented as of this encounter
--- OUTSIDE RECORDS SUMMARY | 2025-03-20 11:45 | XMS_ITS | Clinical Summary ---
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 SPECIALIST Body Mass Index 24.62 07/10/2021 11:00 AM CUSTOMER ENGINEERING SPECIALIST Plan of Treatment Health Maintenance Due Date Last Done Comments Hepatitis C Virus (HCV) Screening 1960 TdaP Immunization 1960 HPV/Cotest 1990 Cologuard 2005 Pneumococcal Immunization (50+ years) (1 of 1 - PCV) 2010 Zoster Immunization (1 of 2) 2010 Immunochemical Fecal Occult Blood 06/11/2020 06/11/2019 Cervical Cancer Screening (CCS) 06/11/2022 Pap Smear 06/11/2022 06/11/2019 Influenza Immunization (#1) 02/04/202504/06, 05/27/2020, 03/05/2019, Additional history exists SARS-COV-2 Immunization ( season) 2025 01/26/2021, 01/08/2021 Colonoscopy 07/27/2031 07/27/2021, 10/27/2017 Colorectal Cancer Screening 07/27/2031 Respiratory Syncytial Virus (RSV) Immunization (Adult) (1 - 1-dose 75+ series) 09/17/2035 DTaP/Tdap/Td Immunization Discontinued 08/14/1996 Hepatitis B Immunization Aged Out No longer [...] patient's age to complete this topic Insurance [facility] Care Teams Hat Blocking Operator Relationship Specialty Start Date End Date Justin Jacinto MD [address] [place] [address] PCP - General Internal Medicine 10/27/17
--- OUTSIDE RECORDS SUMMARY | 2025-03-20 11:46 | XMS_ITS | Clinical Summary ---
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 Active buPROPion XL (WELLBUTRIN XL) 300 mg 24 hr tablet Take 1 tablet (300 mg total) by mouth every morning Active clotrimazole (LOTRIMIN) 1 % external solution FOR FUNGAL EXTERNAL OTITIS PUT 4 DROPS IN EACH EAR CANAL WITH EAR UP TOWARDS CEILING TWICE A DAY Active ergocalciferol (VITAMIN D) 50,000 unit capsule Take 1 capsule (50,000 Units total) by mouth Active naproxen (NAPROSYN) 375 mg tablet Take 1 tablet (375 mg total) by mouth every 12 (twelve) hours as needed Active neomycin-polymyxi n-HC (CORTISPORIN) 3.5-10,000-1 mg/mL-unit/mL-% otic suspension INSTILL 4 DROPS INTO AFFECTED EAR(S) 3 TIMES A DAY Active nitrofurantoin monohydrate (MACROBID) 100 mg capsule TAKE 1 CAPSULE BY MOUTH EVERY 12 HOURS FOR 10 DAYS Active ofloxacin (OCUFLOX) 0.3 % ophthalmic solution 11/29/19 Active Active Problems Problem Noted Date Diagnosed [...] 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 [employer] at [employer] Encounter for wellness examination 12/23/2021 Assessment & Plan (12/23/2021 11:12 AM CDT): Ordered lipid, hgb a1c, HIV, hep c, TSH, and free t4 Colonoscopy: up to date Pap smear:follows with ob Mammo: up to date F/u in 1 year for annual Dyspnea on exertion 11/30/2021 Overview (11/30/2021): Added automatically from request for surgery [id number] Assessment & Plan (01/27/2022 1:02 PM CDT): Worsening Seen by cardio and unlikely to be caused by the heart Had stress test and other imaging Chest xray ordered. If negative will consider referral to pulmonary Chest pain 11/30/2021 Overview (11/30/2021): Added automatically from request for surgery [id number] Assessment & Plan (12/23/2021 11:08 AM CDT): Likely stress induced Cardiac cath negative, echo unremarkable F/u prn and continue with sertraline for the anxiety Diverticulosis 05/25/2021 Gastroesophageal reflux disease 05/25/2021 Assessment & Plan (12/23/2021 11:07 AM CDT): Restart omeprazole F/u prn Abdominal pain 04/28/2021 Overview (04/28/2021): Added automatically from request for surgery [id number] Assessment & Plan (03/28/2023 2:57 PM CDT): [...] disease 10/18/2017 Osteopenia 04/27/2017 Overview (12/10/2021): Note: -2015 Herpes simplex 10/22/2014 Overview (12/10/2021): Note: + serology for type II Family history of malignant neoplasm of breast 0 10/12/2013 Overview (12/10/2021): Note: sister - dx in her 60's History of cervical dysplasia 10/29/2009 Resolved Problems Problem Noted Date Diagnosed Date Resolved Date Diarrhea 04/28/2021 12/10/2021 Overview (04/28/2021): Added automatically from request for surgery [id number] Other microscopic hematuria 01/12/2021 12/10/2021 Gallbladder polyp [...] Encounters Date Type Department Care Team Description 02/15/2025 8:07 AM CDT - 02/15/2025 11:59 PM CDT Hospital Encounter [facility] [address] [place] [id number] Disease of spinal cord, unspecified Discharge Disposition: Discharge to home or self care 02/06/2025 7:20 AM CDT - 02/06/2025 11:59 PM CDT Hospital Encounter [facility] [address] [place] [address] Disease of spinal cord, unspecified Discharge Disposition: Discharge to home or self care 01/03/2025 [facility] [address] 6[address] [place] [address] [place] [address] Ann Mccloud, PATITO Myelopathy (HCC) (Primary Dx) 12/24/2024 1:00 PM CDT - 12/24/2024 11:59 PM CDT Hospital Encounter [facility] [address] [place] [address] Pleurodynia Discharge Disposition: Discharge to home or self care 12/20/2024 Telephone [facility] Medicine Neurosurgery [address] [place] [address] [place] [id number] Emily Mao NP from Last 3 Months Immunizations Immunization Administration [...] of ovary OVARIAN CYST Hx Other Medical 01-PAPIER MACHE' MOLDER PONV (postoperative nausea and vomiting) GERD (gastroesophageal [...] on file 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 Gender Identity Not on file Sexual Orientation Not on file Obstetrics History Para Term AB IAB SAB Ectopic Multiple Livin g Live Births 4 4 4 Date Outcome GA Total Labor Labor/2nd/3rd Weight Sex Type Anes PTL Sonia A1 A5 Name Clin Term Term Term Term Last Filed Vital Signs Vital Sign Reading Time Taken Comments Blood Pressure 144/92 11/23/2024 3:28 PM CDT Pulse 106 11/23/2024 3:28 PM CDT Temperature 36.8 C (98.2 F) 11/23/2024 3:28 PM CDT Respiratory Rate 17 11/23/2024 3:28 PM CDT Oxygen Saturation 95% 11/23/2024 3:28 PM CDT Inhaled Oxygen Concentration - - Weight 69.4 kg (153 lb) 11/28/2024 6:02 PM CDT Height 157.5 cm (5' 2) 11/28/2024 6:02 PM CDT Body Mass Index 27.98 11/28/2024 6:02 PM CDT Plan of Treatment Health Maintenance Due Date Last Done Comments Cervical Cancer Screening 1960 Hepatitis B Screening 1978 Breast Cancer Screening-Mammogram 08/08/2022 08/08/2021, 07/28/2020, 07/02/2019, Additional history exists Regular Well Visit/Exam 18-64 12/23/2022 12/23/2021, 11/10/2020, 11/05/2019, Additional history exists Depression Screening 01/27/2023 01/27/2022, 12/23/2021, 12/10/2021, Additional history exists Osteoporosis Screening-Bone Density Scan 08/11/2023 08/10/2021, 07/16/2019, 10/24/2013, Additional history exists Colon Cancer Screening-Colonoscopy 10/27/2024 10/27/2017, 05/14/2011, 05/14/2011 Covid-19 Vaccine ( season) 2025 01/26/2021, 01/08/2021 Influenza Vaccine (#1) 2025 , 04/05/2022, 04/20/2021, Additional history exists DTaP/Tdap/Td Vaccine (2 - Td or Tdap) 02/24/2034 02/25/2024, 08/14/1996 Colon Cancer Screening-CT Colonography Discontinued 10/27/2017, 05/14/2011, 05/14/2011 Colon Cancer Screening-DNA Stool Discontinued 10/27/2017, 05/14/2011, 05/14/2011 Colon Cancer Screening-FIT Discontinued 10/27, 05/14/2011, 05/14/2011 Colon Cancer Screening-Sigmoidoscopy Discontinued 10/27/2017, 05/14/2011, 05/14/2011 Hepatitis C Screening Completed 12/28/2021, 017 Pneumococcal vaccine <65 Aged Out 05/13/2023 No longer eligible based on patient's age to complete this topic Zoster Vaccine Completed 01/25/2025, 10/18/2024 Procedures Procedure Name Priority Date/Time Associated Diagnosis Comments XR SPINE CERVICAL W FLEXION AND EXTENSION 4 VIEWS Schedule Routine, Read Routine (OP Routine) 02/15/2025 8:22 AM CDT Disease of spinal cord, unspecified MRI CERVICAL SPINE WO CONTRAST Schedule Routine, Read Routine (OP Routine) 02/06/2025 7:45 AM CDT Disease of spinal cord, unspecified XR RIBS LEFT 2 VIEWS Schedule Routine, Read Routine (OP Routine) 12/24/2024 1:11 PM CDT Pleurodynia HEPATITIS C ANTIBODY Routine 12/28/2021 7:29 AM CDT Routine medical exam Need for hepatitis C screening test DEXA AXIAL SKELETON BONE DENSITY 1 OR MORE SITES Schedule Routine, Read Routine (OP Routine) 08/10/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 XR SPINE CERVICAL W FLEXION AND EXTENSION 4 OR 5 VIEWS REASON FOR STUDY: disease of spinal cord Pt states she had a falling injury in october, since has had neck pain Bilateral intermittent numbness FINDINGS: Five views of the cervical spine are submitted for interpretation and compared to prior 09/26/2019. Moderate retrolisthesis at C4-C5, mild anterolisthesis at C3-C4, mild retrolisthesis at C6-C7 and mild anterolisthesis at C7-T1. Multilevel cervical spine degenerative disc disease is greatest and severe at C4-C5 and C6-C7. No fracture seen. The prevertebral soft tissues are normal. With flexion and extension, minimal change in listhesis. Bilateral multilevel facet and uncovertebral osteoarthritis. IMPRESSION: 1. Multilevel cervical spine degenerative disc disease, greatest and severe at C4-C5 and C6-C7. 2. Multilevel listhesis not greatly changed by flexion or extension. THIS IS AN ELECTRONICALLY VERIFIED FINAL REPORT 02/22/2025 11:02 AM - Electronically signed by Chidi Sinclair M.D. TH: TH Report ID: [id number] Reading Location: [id number] Procedure Note Chidi Sinclair MD - 02/22/2025 EXAM DESCRIPTION: 1. XR SPINE CERVICAL W FLEXION AND EXTENSION 4 OR 5 VIEWS REASON FOR STUDY: disease of spinal cord Pt states she had a falling injury in october, since has had neck painBilateral intermittent numbness FINDINGS: Five views of the cervical spine are submitted for interpretation andcompared to prior 09/26/2019. Moderate retrolisthesis at C4-C5, mild anterolisthesis at C3-C4, mild retrolisthesis at C6-C7 and mild anterolisthesis at C7-T1. Multilevel cervical spine degenerative disc disease is greatest and severe at C4-C5and C6-C7. No fracture seen. The prevertebral soft tissues are normal. With flexion and extension, minimal change in listhesis. Bilateral multilevel facet and uncovertebral osteoarthritis. IMPRESSION: 1. Multilevel cervical spine degenerative disc disease, greatest andsevere at C4-C5 and C6-C7. 2. Multilevel listhesis not greatly changed by flexion or extension. THIS IS AN ELECTRONICALLY VERIFIED FINAL REPORT 02/22/2025 11:02 AM - Electronically signed by Chidi Sinclair M.D. TH: TH Report ID: [id number] Reading Location: [id number] us Delmy Monsivais UNIT AIDE TECH IMG XR PROCEDURES Munira l Result * MRI Cervical Spine WO Contrast (02/06/2025 7:45 AM CDT) Anatomical Region Laterality Modality Spine N/A Magnetic Resonan ce 02/06/2025 9:37 AM CDT Narrative 02/06/2025 9:46 AM CDT EXAM DESCRIPTION: MRI CERVICAL SPINE WO CONTRAST REASON FOR STUDY: G95.9 Patient falls often, she fell several months ago hitting her head causing neck pain, no surgery TECHNIQUE: Sagittal and Axial imaging includes T1, T2, STIR and gradient echo sequences. COMPARISON: Cervical spine CT 10/19/2024. FINDINGS: ALIGNMENT: Mild anterolisthesis C3-C4. Rret-yj-jomuubrz retrolisthesis of C4 over C5. Focal kyphosis of the cervical spine with apex C4-C5. Alignment is unchanged relative to the prior CT cervical spine. VERTEBRAE: No compression deformity is identified. Mild degenerative height loss of the C4 vertebral body. There is type 1 Modic endplate changes of the opposing C5-C6, C6-C7 vertebral bodies. Mild type 2 Modic endplate changes at C4-C5. DISCS: Severe height loss C4-C5, C5-C6, C6-C7. Warh-fq-tlkuyhqo height loss of the other levels. CORD: Normal in size and signal intensity. INDIVIDUAL LEVELS: C2-C3: No significant disc bulge. There is no significant facet arthropathy. There is no uncovertebral joint disease. There is no neuroforaminal stenosis. There is no spinal canal stenosis. C3-C4: Posterior disc osteophyte complex. There is severe left and moderate right facet arthropathy. There is moderate bilateral uncovertebral joint disease. There is moderate left and mild right neuroforaminal stenosis. There is mild spinal canal stenosis. C4-C5: Posterior disc osteophyte complex. There is severe bilateral facet arthropathy. There is severe bilateral uncovertebral joint disease. There is severe right and mild left neuroforaminal stenosis. There is severe spinal canal stenosis. C5-C6: Posterior disc osteophyte complex. There is severe bilateral facet arthropathy. There is severe bilateral uncovertebral joint disease. There is severe right and mild left neuroforaminal stenosis. There is moderate spinal canal stenosis. C6-C7: Posterior disc osteophyte complex superimposed small central disc protrusion. There is moderate bilateral facet arthropathy. There is severe bilateral uncovertebral joint disease. There is moderate bilateral neuroforaminal stenosis. There is moderate spinal canal stenosis. C7-T1: Posterior disc osteophyte complex. There is severe right and moderate left facet arthropathy. There is mild bilateral uncovertebral joint disease. There is no neuroforaminal stenosis. There is no spinal canal stenosis. BASE OF BRAIN: No significant finding. UPPER THORACIC: Incompletely imaged. No significant spinal stenosis or foraminal stenosis. OTHER: Incidentally noted left C7-T1 and T1-T2 perineural cysts. IMPRESSION: 1. Severe degenerative changes of the cervical spine as described above. 2. Severe spinal canal stenosis at C4-C5. No cord signal abnormality identified to indicate myelopathy. 3. Severe right neural foraminal stenosis at C4-C5 and C5-C6. THIS IS AN ELECTRONICALLY VERIFIED FINAL REPORT 02/06/2025 9:46 AM - Electronically signed by Mc Ferraro M.D. MM: MM Report ID: [id number] Reading Location: [id number] Procedure Note Mc Ferraro MD - 02/06/2025 EXAM DESCRIPTION: MRI CERVICAL SPINE WO CONTRAST REASON FOR STUDY: G95.9 Patient falls often, she fell several months ago hitting her head causingneck pain, no surgery TECHNIQUE: Sagittal and Axial imaging includes T1, T2, STIR and gradientecho sequences. COMPARISON: Cervical spine CT 10/19/2024. FINDINGS: ALIGNMENT: Mild anterolisthesis C3-C4. Lkzh-qk-gpoptmmb retrolisthesisof C4 over C5. Focal kyphosis of the cervical spine with apex C4-C5.Alignment is unchanged relative to the prior CT cervical spine. VERTEBRAE: No compression deformity is identified. Mild degenerativeheight loss of the C4 vertebral body. There is type 1 Modic endplate changes ofthe opposing C5-C6, C6-C7 vertebral bodies. Mild type 2 Modic endplatechanges at C4-C5. DISCS: Severe height loss C4-C5, C5-C6, C6-C7. Ppxq-cp-znxfbsgk heightloss of the other levels. CORD: Normal in size and signal intensity. INDIVIDUAL LEVELS: C2-C3: No significant disc bulge. There is no significant facet arthropathy. There is no uncovertebral joint disease. There is no neuroforaminal stenosis. There is no spinal canal stenosis. C3-C4: Posterior disc osteophyte complex. There is severe left andmoderate right facet arthropathy. There is moderate bilateral uncovertebraljoint disease. There is moderate left and mild right neuroforaminal stenosis. There is mild spinal canal stenosis. C4-C5: Posterior disc osteophyte complex. There is severe bilateralfacet arthropathy. There is severe bilateral uncovertebral joint disease.There is severe right and mild left neuroforaminal stenosis. There is severespinal canal stenosis. C5-C6: Posterior disc osteophyte complex. There is severe bilateralfacet arthropathy. There is severe bilateral uncovertebral joint disease.There is severe right and mild left neuroforaminal stenosis. There is moderate spinal canal stenosis. C6-C7: Posterior disc osteophyte complex superimposed small central disc protrusion. There is moderate bilateral facet arthropathy. There is severe bilateral uncovertebral joint disease. There is moderatebilateral neuroforaminal stenosis. There is moderate spinal canal stenosis. C7-T1: Posterior disc osteophyte complex. There is severe right and moderate left facet arthropathy. There is mild bilateral uncovertebral joint disease. There is no neuroforaminal stenosis. There is no spinal canal stenosis. BASE OF BRAIN: No significant finding. UPPER THORACIC: Incompletely imaged. No significant spinal stenosis or foraminal stenosis. OTHER: Incidentally noted left C7-T1 and T1-T2 perineural cysts. IMPRESSION: 1. Severe degenerative changes of the cervical spine as described above. 2. Severe spinal canal stenosis at C4-C5. No cord signal abnormality identified to indicate myelopathy. 3. Severe right neural foraminal stenosis at C4-C5 and C5-C6. THIS IS AN ELECTRONICALLY VERIFIED FINAL REPORT 02/06/2025 9:46 AM - Electronically signed by Mc Ferraro M.D. MM: MM Report ID: [id number] Reading Location: [id number] us Delmy Monsivais UNIT AIDE TECH IMG MRI PROCEDURES Fin al Result * XR Ribs Left 2 Views (12/24/2024 1:11 PM CDT) Anatomical Region Laterality Modality Rib, Chest Left Computed Radiogr aphy 12/30/2024 10:3 5 PM CDT Narrative 12/30/2024 10:36 PM CDT EXAM DESCRIPTION: XR RIBS LEFT 2 VIEWS REASON FOR STUDY: pain Injury three days ago No surgery Pain is lateral TECHNIQUE: 3 views of the left ribs. COMPARISON: 03/19/2023 FINDINGS: RIBS: No acute displaced fracture or osseous abnormalities. VISUALIZED LUNGS: No focal opacity, pleural effusion, or pneumothorax. IMPRESSION: No acute abnormality. THIS IS AN ELECTRONICALLY VERIFIED FINAL REPORT 12/30/2024 10:36 PM - Electronically signed by Giancarlo CORTES: SEBASTIAN Report ID: [id number] Reading Location: [id number] Procedure Note Giancarlo Ramires MD - 12/30/2024 EXAM DESCRIPTION: XR RIBS LEFT 2 VIEWS REASON FOR STUDY: pain Injury three days ago No surgery Pain is lateral TECHNIQUE: 3 views of the left ribs. COMPARISON: 03/19/2023 FINDINGS: RIBS: No acute displaced fracture or osseous abnormalities. VISUALIZED LUNGS: No focal opacity, pleural effusion, or pneumothorax. IMPRESSION: No acute abnormality. THIS IS AN ELECTRONICALLY VERIFIED FINAL REPORT 12/30/2024 10:36 PM - Electronically signed by Giancarlo CORTES: SEBASTIAN Report ID: [id number] Reading Location: [place] [address] Justin VANESSA IMG XR PROCEDURES Final Resul t * Hepatitis C antibody (12/28/2021 7:29 AM CDT) Hep C Ab Nonreactive Nonreactive RUSTY FRENCH ([place]) Comment: Interpretive Data Nonreactive: Antibodies to HCV [...] revised on 2019. 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 MD: Report ID: [id number] Reading Location: [place] [id number] Procedure Note Hebert Burkett MD - 08/10/2021 EXAM DESCRIPTION: DEXA AXIAL SKELETON BONE DENSITY 1 OR MORE SITES REASON FOR STUDY: 60 year old postmenopausal female with givenhistory of age related osteoporosis without current pathological fracture. 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 A 1 year screening mammogram is recommended. BI-RADS: 1 - Negative. The patient has been or will be contacted. The patient will be entered into a reminder system with a target due date of 1 year for her next mammogram. Electronically signed by: Hebert Burkett M.D. 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
--- OUTSIDE RECORDS SUMMARY | 2025-03-20 11:46 | XMS_ITS | Data Portability ---
Author Organization [facility] Address [address] [facility] [place] [address] Care Team Providers Care Maid Supervisor Name Role Phone DAVIE KESSLER Primary Care Provider [phone] Assessment No assessment recorded. Plan of Treatment Reminders Order Date Submit Date Provider Last Modified By Organization Details Last Modified Time Details Appointments ANY 15 2024 09:45A M Davie Kessler PA-C Not available Not available Not available Lab None recorded. Referral neurologi mal surgeon referral 2024 025 HOLLI Coon MD, [address] [facility] [address], [place], [address], 01/18/2025 10:18:10 pain managemen t referral 2024 025 [email or web address], [address] [place], [address], 12/18/2024 11:23:14 Procedures None recorded. Surgeries None recorded. Imaging XR, ribs, unilatera l 2024 025 [facility], [address] [facility] [place], [address], 12/30/2024 23:41:12 Medication Orders None recorded. Patient TargetsNo targets recorded. Patient Instructions Encounter Date Encounter Id Patient Instructions Last Modified By Organization Details Last Modified Time 12/04/2024 [id number] A healthy lifestyle: care instructions omer Not available 12/04/2024 19:33:06 12/24/2024 [id number] A healthy lifestyle: care instructions jnanney Not available 12/24/2024 12:37:40 01/07/2025 [id number] A healthy lifestyle: care instructions [email or web address] Not available 01/07/2025 15:09:39 Reason for Referral Pain Management Referral for Lumbar radiculopathy Referring Physician: Davie Kessler [facility], Encounter Date: 12/04/2024 Neurological Surgeon Referra l for Cervical radiculopathy Referring Physician: Davie Kessler [facility], Encounter Date: 12/24/2024 Results Created Date Observation Date Name Description Value Unit Range Abnormal Flag Note LastModifiedBy Organization Detail LastModifiedTime 10/20/1910/19/2024 CT, cervi mal spine , w/o contr ast No observ ation record ed. [address] [place], [address], 10/22/2024 08:57:11 10/20/1910/19/2024 CT, chest + abdom en + pelvi s, w/ contr ast No observ ation record ed. [address] [place], [address], 10/22/2024 08:57:36 10/20/1910/19/2024 CT, head, w/o contr ast No observ ation record ed. [address] [place], [address], 10/22/2024 08:58:34 10/21/1910/20/2024 CT, head, w/o contr ast No observ ation record ed. [address], [address], 10/22/2024 09:07:12 10/21/1910/20/2024 XR, shoul juan No observ ation record ed. [address], [address], 10/22/2024 09:07:35 10/21/19 25 10/20/2024 XR, shoul juan No observ ation record ed. [address], [place], [address], 10/22/2024 09:07:49 10/23/19 25 10/19/2024 elect rocar diogr am, routi ne ECG, 12 leads min No observ ation record ed. [address] [place], [address], 10/22/2024 09:08:05 11/30/19 25 11/28/2024 MRI, brain + brain stem, w/wo contr ast No observ ation record ed. [address], [address], 11/29/2024 11:58:11 11/30/19 25 11/28/2024 MRI, lumba r spine , w/wo contr ast No observ ation record ed. [address], [address], 11/29/2024 11:58:12 12/01/19 25 11/22/2024 CT, head, w/o contr ast [facility] observ [facility] [address] [place], [address], 11/30/2024 10:09:19 12/31/19 25 12/24/2024 XR, ribs, unila teral No observ ation record ed. HOLLI Easton [address] [place], [address], 01/01/2025 13:53:59 02/07/20 25 02/06/2025 MRI, cervi mal spine , w/o contr ast No observ ation record ed. [address] [place], [address], 02/06/2025 12:23:26 02/23/20 25 02/15/2025 XR, cervi mal spine No observ ation record ed. [email or web address] [address] [place], [address], 02/22/2025 12:35:39 Result Notes None recorded. Problems No Known Problems Procedures Surgical History Date Name Laterality Status Provider Name and Address Organization Details Recorded Time 08/10/19 23 Date of Last Mammogram completed Lisette Mirza MA [facility] 11/15/2023 10:48:22 07/12/19 23 Date of Last Pap Smear completed Lisette Mirza MA [facility] 07/12/2022 15:22:59 Tubal Ligation completed Latoya Taylor MA [facility] 04/05/2022 10:06:32 laparoscopy completed Latoya Taylor MA [facility] 04/05/2022 10:06:54 tonsillectomy completed Latoya Taylor MA [facility] 04/05/2022 10:07:04 cholecystectomy completed Latoya Taylor MA [facility] 04/05/2022 10:07:16 Imaging Results None recorded. Procedure [...] completed Not Available Not Available Not Available ofloxacin 0.3 % eye drops PLEASE SEE ATTACHED FOR DETAILED DIRECTION S active Not Available Not Available No t Available levetiracet am 500 mg tablet Take [...] tablet twice a day by oral route. 12/24 completed Not Available Not Available Not Available alendronate 70 mg tablet TAKE ONE [...] Available Not Available amoxicillin 875 mg tablet Take 1 tablet every 12 hours by oral route for 10 days. 06/05 completed Not Available Not Available Not [...] Available Not Available Not Available amoxicillin 875 mg-potsegundoiu m clavulanate 125 mg tablet TAKE 1 TABLET BY MOUTH TWICE A DAY FOR 10 DAYS 04/05 completed Not Available Not Available Not Available neomycin-po lymyxin-hyd rocort 3.5 mg-10,000 unit/mL-1 % ear drops,susp INSTILL 4 DROPS INTO AFFECTED EAR(S) 3 TIMES A DAY 10/23 completed Not Available Not Available Not Available azithromyci n 500 mg tablet Take 1 tablet every day by oral route for 3 days. 09/03 completed Not Available Not Available Not [...] Pulse oximetry Heart rate Respiratory rate Systolic And Diastolic Provider Name and Address Organization Details Last Updated DateTime 5 160.02 cm 26.3 kg/m2 50932.8 3 g 98 % 98 % 90 /min 16 /min 124/80 mm[Hg] Luly Hutchinson [place] [facility] 5 16:15:42 Date Recorded Body height Body mass index (BMI) Body weight Respiratory rate Oxygen saturation Oxygen saturation in Arterial blood by Pulse oximetry Heart rate Systolic And Diastolic Provider Name and Address Organization Details Last Updated DateTime 5 160.02 cm 27 kg/m2 31000.1 4 g 18 /min 96 % 96 % 91 /min 123/84 mm[Hg] Lisette Mirza MA [facility] 19:02:48 Date Recorded Systolic And Diastolic Provider Name and Address Organization Details Last Updated DateTime 12/24/2024 118/68 mm[Hg] Davie Kessler PA-C Attn: [address]ing,[address] [place], [address], [facility] 12/24/2024 12:36:35 Date Recorded Body height Body mass index (BMI) Body weight Oxygen saturation Oxygen saturation in Arterial blood by Pulse oximetry Heart rate Provider Name and Address Organization Details Last Updated DateTime 160.02 cm 27.5 kg/m2 12153.8 2 g 97 % 97 % 86 /min Lisette Mirza MA [facility] 12:07:52 Date Recorded Body height Body mass index (BMI) Body weight Oxygen saturation Oxygen saturation in Arterial blood by Pulse oximetry Heart rate Systolic And Diastolic Provider Name and Address Organization Details Last Updated DateTime 160.02 cm 27.3 kg/m2 65631.2 2 g 93 % 93 % 98 /min 161/90 mm[Hg] Caprice Lin MA [facility] 14:28:26 Social History Question Answer Notes LastModified by Organizat ion Details LastModified Time Tobacco Smoking Status Never Smoker Latoya Taylor MA null, [facility] 04/05/2022 10:03:41 Do You Have An Advance Directive? No Information not available 12/04/2024 Are You Blind Or Do You Have Difficulty Seeing? Yes Glasses Information not available 04/05/2022 What Is Your Level Of Caffeine Consumption? Heavy Information not available 04/05/2022 In The 14 Days Before Symptom Onset, Have You Had Close Contact With A Laboratory-confir med COVID-19 While That Case Was Ill? No Information not available 12/04/2024 In The 14 Days Before Symptom Onset, Have You Had Close Contact With A Person Who Is Under Investigation For COVID-19 While That Person Was Ill? No Information not available 12/04/2024 Have You Been To An Area Known To Be High Risk For COVID-19? No Information not available 12/04/2024 Are You Deaf Or Do You Have Serious Difficulty Hearing? No Information not available 04/05/2022 What Type Of Diet Are You Following? REGULAR Information not available 04/05/2022 Are There Any Guns Present In Your Home? No Information not available 04/05/2022 What Was The Date Of Your Most Recent Tobacco Screening? 01/07/2025 [email or web address] Information not available 01/07/2025 How Many Children Do You Have? 4 Information not available 04/05/2022 What Is Your Relationship Status? Information not available 04/05/2022 Do You Use Your Seat Belt Or Car Seat Routinely? Yes Information not available 04/05/2022 Do You Have Smoke And Carbon Monoxide Detectors In Your Home? Yes Information not available 04/05/2022 Are You Passively Exposed To Smoke? No Information no t available 04/05/2022 Has Tobacco Cessation Counseling Been Provided? No Information not available 06/22/2022 Sex: Unknown Functional [...] 04/05/2022 Are you able to care for yourself independently? Yes Information not available 04/05/2022 What is your occupation? [employer] Information not available 04/05/2022 What is your exercise level? None Information not available 04/05/2022 Mental Status Question Answer Note LastModified by Organizat ion Details LastModified Time Do you feel stressed (tense, restless, nervous, or anxious, or unable to sleep at night)? [id number] stressed from work [email or web address] Information not available 04/05/2022 Family History Relationship [...] Eating Disorder N Anemia N Heart Attack ([place]) N Anxiety Disorder N Diabetes N Muscle, [...] Influenza, split virus, quadrivalent, PF 9 completed RASTA [place], [place] [facility] 04/05/2022 10:36:23 Influenza, split virus, quadrivalent, PF 0 completed RASTA [place] [facility] 04/05/2022 10:36:23 Influenza, split virus, quadrivalent, PF 1 completed Lisette Mirza [place], [place] [facility] 04/05/2022 10:36:23 COVID-19, mRNA, LNP-S, PF, 30 mcg/0.3 mL dose 1 completed RASTA [place] [facility] 04/05/2022 10:36:23 COVID-19, mRNA, LNP-S, PF, 30 mcg/0.3 mL dose 1 completed RASTA [place] [facility] 04/05/2022 10:36:23 zoster recombinant 5 completed RASTA [place] [facility] 10/22/2024 09:23:45 Influenza, split virus, quadrivalent, PF 7 completed Not Available [facility] 01/07/2025 14:21:33 pneumococcal polysaccharide PPV23 3 completed Not Available [facility] 01/07/2025 14:21:33 Tdap 4 completed Not Available [facility] 01/07/2025 14:21:33 zoster recombinant 5 completed Lisette [place] [facility] 01/28/2025 10:20:10 Influenza, split virus, quadrivalent, PF 2 completed Lisette [place] [facility] 04/05/2022 11:30:19 Influenza, split virus, quadrivalent, PF 3 completed Awa Sloorio [place] [facility] 03/22/2023 19:36:27 Influenza, split virus, quadrivalent, PF 5 completed Lisette Mirza [place] [facility] 02/15/2025 12:22:12 Past Encounters Encounter ID Performer Location Encounter Start Date Encounter Closed Date Diagnosis/Indication Diagnosis SNOMED-CT Code Diagnosis ICD10 Code Diagnosis IMO Codes Diagnosis Note [id number] JUDI Cruz [address] [place] [address] 04/05/2022 09:49:14 04/05/2022 11:19:12 Adult health examination 150243281 Z00.00 Family his tory of diabetes mellitus 783229181 Z83.3 Dysuria 99657602 R30.0 Administra tion of influenza vaccine 35627714 Z23 [id number] JUDI Cruz [address] [place] [address] 06/22/2022 17:59:56 06/23/2022 15:00:20 Recurrent falls 705917612 R29.6 Attention deficit hyperactivity disorder, 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 909084142 F41.8 Overweight 398838728 E66 .3 [id number] JUDI Cruz [address] [place] [address] 07/12/2022 15:12:04 07/12/2022 16:06:20 Long-term drug therapy 623071879 Z79.899 Post-acute COVID-19 1119 686072 U09.9 Attention deficit hyperactivity disorder, predominantly inattentive type 19386890 F90.0 [id number] Davie Kessler PA-C [facility] [address] [place] [address] 07/28/2022 11:50:56 07/28/2022 12:38:14 Acute maxillary sinusitis 93352132 J01.01 Overweight 827448114 E66 .3 [id number] Davie Kessler PA-C [facility] [address] [place] [address] 09/24/2022 16:27:55 09/27/2022 12:14:19 Fatigue 53153250 R53.83 Generalize d anxiety disorder 79453486 F41.1 [id number] Davie Kessler PA-C [facility] [address] [place] [address] 03/07/2023 11:59:10 03/08/2023 14:15:31 Albumin below reference range 659868518 R77.0 Increased frequency of urination 121330539 R35.0 Mixed anxi ety and depressive disorder 897184094 F41.8 [id number] Davie Kessler PA-C [facility] [address] [place] [address] 03/22/2023 18:35:36 03/29/2023 15:36:00 Costal chondritis 77190427 M94.0 Administra tion of influenza vaccine 91132286 Z23 [id number] Davie Kessler PA-C [facility] [address] [place] [address] 06/24/2023 14:53:09 06/27/2023 16:17:24 Neck pain 50706968 M54.2 Overweight 709478050 E66 .3 [id number] Davie Kessler PA-C [facility] [address] [place] [address] 07/08/2023 15:54:50 07/12/2023 14:41:53 Hypoalbuminemia 625395480 E88.09 [id number] Gary Gifford MD [facility] [address] [place] [address] 11/15/2023 10:21:11 11/16/2023 09:18:15 Closed fracture of bone of knee joint 826767695 S82.892A Overweight 494361585 E66 .3 [id number] Davie Kessler PA-C [facility] [address] [place] [address] 01/23/2024 15:24:29 01/24/2024 08:17:34 Adult attention deficit hyperactivity disorder 493792146 F90.0 Overweight 769442450 E66 .3 [id number] Davie Kessler PA-C [facility] [address] [place] [address] 03/05/2024 16:10:22 03/07/2024 15:15:31 Complex laceration of scalp 610063847 S01.01XD [id number] Gary Gifford MD [facility] [address] [place] [address] 03/26/2024 14:51:32 04/02/2024 10:49:25 Laceration of forehead 271773561 S01.81XD sutures removed Overweight 280134895 E66 .3 [id number] Gary Gifford MD [facility] [address] [place] [address] 04/17/2024 19:02:01 04/18/2024 09:21:58 Middle ear effusion 3994128253 H74.8X1 Overweight 467457849 E66 .3 [id number] Gary Gifford MD [facility] [address] [place] [address] 06/05/2024 13:51:38 06/08/2024 10:34:43 Sore throat 147933969 J02.9 Overweight 816895891 E66 .3 Acute bron chitis with bronchospasm 92506993 J20.8 [id number] Gary Gifford MD [facility] [address] [place] [address] 09/03/2024 15:15:27 09/04/2024 08:45:48 Urinary symptoms 256227911 R30.0 Acute otitis externa 302 29445 H60.513 Body mass index 20-24 - normal 248371610 Z68.24 [id number] Gary Gifford MD [facility] [address] [place] [address] 10/23/2024 17:57:01 10/24/2024 10:42:25 Traumatic brain injury 484845219 S06.9X1A 95027849 Overweight in adulthood with body mass index of 25 or more but less than 30 125445318 Z68.26 250851 [id number] Gary Gifford MD [facility] [address] [place] [address] 11/05/2024 16:05:18 11/06/2024 10:19:01 Hemorrhage into subarachnoid space of neuraxis 316844859 I60.9 4394 Intermittent vertigo 103 512767 R42 936919 Overweight in adulthood with body mass index of 25 or more but less than 30 461448146 E66.3 Z68.26 8856020154 [id number] Gary Gifford MD [facility] [address] [place] [address] 12/04/2024 18:41:52 12/05/2024 17:39:39 Traumatic brain injury 649383001 S06.9X1S 74479259 Lumbar radiculopathy 128 631968 M54.16 59181 Overweight in adulthood with body mass index of 25 or more but less than 30 403213825 E66.3 Z68.27 9865449231 [id number] Gary Gifford MD [facility] [address] [place] [address] 12/24/2024 11:59:20 12/25/2024 16:36:08 Cervical radiculopathy 94919608 M54.12 130005 Rib pain 115026771 R07.8 1 83896124 Overweight in adulthood with body mass index of 25 or more but less than 30 289946076 Z68.27 944290 [id number] Gary Gifford MD [facility] [address] [place] [address] 01/07/2025 14:20:33 01/08/2025 09:42:48 History of traumatic brain injury 8855924394 9100 Z87.820 017512 Overweight in adulthood with body mass index of 25 or more but less than 30 582225415 E66.3 Z68.27 7879280654 [id number] Gary Gifford MD [facility] [address] [place] [address] 02/15/2025 11:57:29 02/18/2025 10:50:29 Immunization due 077340259 Z23 5551309 Health Concerns Section Related Observation LastModified by Organization Detai ls LastModified Time None Recorded Concern Status LastModified by Organization Details LastModified Time None Recorded Advance Directives Directive N: Payers Insurance Date Sequence Insurance Name Policy Number Policy Spear Covered Member ID Spear Member ID Guarantor Name 03/19/2025 1 [facility] [facility] - OPEN ACCESS III (PPO) [id number] Bouchra Stanton [id number] Bouchra Stanton 12/04/2024 1 *SELF PAY* Hermilo Stanton 01/02/2025 1 [employer] (HMO) [id number] Bouchra Stanton [id number] Bouchra Stanton Notes Date Note Type Note Provider Name and Address Organization Details Recorded Time 11/05/2024 text/html ROS as noted in the HPI had a fall on october 18..down a stairwell..went to [facility]..subar achnoid bleed ...has CT upcoming and neuro after.... 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 also needs an xray of left ribs after fall in the bathroom.. Davie Kessler PA-C Attn: [address] [place], [address], [facility] 12/24/2024 12:37:56 01/07/2025 text/html ROS as noted in the HPI paperwork re submitted Davie Kessler PA-C Attn: Accounting,[address] [facility], [place], [address], [facility] 01/07/2025 15:10:18 OBGyn Episode No OBEpisode recorded.
[2025-03-20 11:53] LABS: Anion Gap 5 mmol/L (4-12); Blood Urea Nitrogen 21 mg/dL (7-17); Calcium 9.2 mg/dL (8.4-10.2); Carbon Dioxide 29 mmol/L (22-30); Chloride 105 mmol/L (98-107); Estimated Glomerular Filt Rate > 60; Glucose 89 mg/dL (65-110); Potassium 4.9 mmol/L (3.4-5.0); Sodium 139 mmol/L (137-145)
== END 2025-03-20 10:06 | disposition home or self-care (01) ==
LOC: ANHSURGERY 10:10
PROVIDERS: PCP Physician Assistant; Visit Provider Neurological Surgery
DX: R94.31 Abnormal electrocardiogram [ECG] [EKG] (principal); G95.9 Disease of spinal cord, unspecified
CPT/HCPCS: 36415; 71046; 80048; 81001; 85027; 85610; 85730; 93005

== ENCOUNTER 2025-04-03 02:01 | Day surgery (SDC) | payer OTHER, SELFPAY ==
--- NOTE | 2025-03-20 10:03 | PC.NURSE ---
[facility] has started construction of its new state of the art ER which will open Spring 2026. With this, we anticipate parking may be a challenge for some our surgical patients and families. Parking spaces are limited but are available for all Surgical, obstetrics, and ER patients sharing this lot. If you arrive and find you are having a hard time finding a parking space, please note that we understand the challenges, please drive around the hospital and park near Hospital Entrance 1. When you enter this entrance, you can ask a volunteer to direct or take you back to the surgical waiting area to check in. We appreciate everyone?s understanding of these expected challenges while we build for your future. Report to the Outpatient Waiting Room, entrance under the green pavilion located off [address], at time _9 am on date04/03/25 . Planned Procedure Time: 11 am .? Time changes happen often and if your time is changed the preop area will call you the afternoon before. - You and your visitor will be asked to self-screen and do not enter if you have any COVID symptoms. Please call surgeon if you need to reschedule. - A mask is optional within the hospital at this time. Patients may have clear liquids (water, carbonated beverages, clear teas, apple juice) until 3 hours prior to surgery( 8 am) with a maximum of 20 ounces. - No food from midnight until time of surgery and no smoking, or chewing tobacco (or any form of nicotine). No chewing gum, candy or mints. - Take only the following medications with a SIP of water on the morning of surgery: __BUPROPION, SERTRALINE DO NOT STOP ANY OF YOUR OTHER PRESCRIPTION MEDICATIONS PRIOR TO SURGERY EXCEPT THE FOLLOWING Hold all vitamins and supplements for 3 days per anesthesiologist.LAST DOSE 03/30/25 Medications to discontinue per physician NONE Date to take last dose Please no make-up, nail yakut, hairspray, perfume, deodorant, or body powder the day of surgery.? No jewelry (including any body piercings) or valuables the day of surgery, leave them at home.? Please take a shower or bath the night before, or the morning of, surgery with an antibacterial soap.? Wear comfortable, loose fitting clothing.? Children are encouraged to wear pajamas. - Jewelry must be removed prior to entering the operating room.? Rings and piercings that are not removed may be cut off. - The hospital will not accept responsibility for valuables.? - Please leave all valuables, including medications, at home the day of surgery. If you are going home after surgery, a licensed sales driver must drive you home.? - NO public transportation without another adult if you receive anesthesia. - We recommend that an adult stay with you for 24 hours following discharge. - We also recommend that you do not drive, make important decision, drink alcoholic beverages, or take any drugs that were not prescribed by your health care provider for at least 24 hours after your discharge time. For Pediatric surgeries, we recommend two adults accompany the child home. Follow any additional instructions given to you from your surgeon. VERBAL AND WRITTEN instructions given to ___PATIENT and asked if any additional questions and then verbalized understanding. Patient advised to call surgeon office or pre surgery nurse liaison [phone] if any additional questions.
[2025-03-20 10:15] VITALS: BMI 27.6
[2025-03-20 10:40] VITALS: BP 121/77; PULSE 80; RESP 18; TEMP 36.9; O2SAT 96
[2025-04-03] VITALS (13 sets, daily range): BP systolic 103–146; BP diastolic 58–100; PULSE 80–94; RESP 12–16; TEMP 36.1–36.2; O2SAT 93–100; BMI 27.4
--- NOTE | ~2025-04-03 | XR_ITS ---
EXAMINATION: XR fluoroscopy no charge DATE: 04/03/2025 09:44 INDICATION: C3-C4 and C4-C5 anterior cervical discectomy and fusion TECHNIQUE: 2 fluoroscopic images of the cervical spine were obtained in lateral and frontal projections during procedure performed by Dr. Leonard. Radiologist was not present for the imaging or procedure. The amount of fluoroscopy time used during this procedure was 0.1 minutes. Total DAP was 0.0673 Gycm^2. COMPARISON: None. FINDINGS: Images demonstrate C3-C4 and C4-C5 discectomies and anterior spinal fusion with interbody fusion devices at both levels which are also spanned by an anterior plate and screws. Endotracheal tube extends through the oropharynx into the cervical trachea and beyond the inferior margin of the field of imaging. IMPRESSION: 1. Fluoroscopy utilized during C3-C4 and C4-C5 discectomies with instrumented anterior spinal fusion. See procedure note for further detail. Reviewed, dictated and finalized at location A. IMPRESSION: 1. Fluoroscopy utilized during C3-C4 and C4-C5 discectomies with instrumented a nterior spinal fusion. See procedure note for further detail.
--- OUTSIDE RECORDS SUMMARY | 2025-04-03 02:04 | XMS_ITS | Clinical Summary ---
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 [place] at [employer] Encounter for wellness examination 12/23/2021 Assessment & Plan (12/23/2021 11:12 AM CDT): Ordered lipid, hgb a1c, HIV, hep c, TSH, and free t4 Colonoscopy: up to date Pap smear:follows with ob Mammo: up to date F/u in 1 year for annual Dyspnea on exertion 11/30/2021 Overview (11/30/2021): Added automatically from request for surgery [id number] Assessment & Plan (01/27/2022 1:02 PM CDT): Worsening Seen by cardio and unlikely to be caused by the heart Had stress test and other imaging Chest xray ordered. If negative will consider referral to pulmonary Chest pain 11/30/2021 Overview (11/30/2021): Added automatically from request for surgery [id number] Assessment & Plan (12/23/2021 11:08 AM CDT): Likely stress induced Cardiac cath negative, echo unremarkable F/u prn and continue with sertraline for the anxiety Diverticulosis 05/25/2021 Gastroesophageal reflux disease 05/25/2021 Assessment & Plan (12/23/2021 11:07 AM CDT): Restart omeprazole F/u prn Abdominal pain 04/28/2021 Overview (04/28/2021): Added automatically from request for surgery [id number] Assessment & Plan (03/28/2023 2:57 PM CDT): [...] (04/28/2021): Added automatically from request for surgery [id number] Other microscopic hematuria 01/12/2021 12/10/2021 Gallbladder polyp [...] Encounters Date Type Department Care Team Description 03/26/2025 6:58 AM CDT - 03/26/2025 11:59 PM CDT Hospital Encounter [address] [address] Other nonspecific abnormal finding of lung field Discharge Disposition: Discharge to home or self care 03/25/[address] [address] Tanika Benites 03/20/2025 Ancillary Procedure [facility] [employer] 02/15/2025 8:07 AM CDT - 02/15/2025 11:59 PM CDT Hospital Encounter [address] [address] Disease of spinal cord, unspecified Discharge Disposition: Discharge to home or self care 02/06/2025 7:20 AM CDT - 02/06/2025 11:59 PM CDT Hospital Encounter [facility] [address] [place] [address] Disease of spinal cord, unspecified Discharge Disposition: Discharge to home or self care 01/03/2025 Orders Only [facility] Medicine Neurosurgery [address] [facility] [address] [place] [address] [place] [address] Ann Mccloud NP Myelopathy (HCC) (Primary Dx) from Last 3 Months Immunizations Immunization Administration [...] of ovary OVARIAN CYST Hx Other Medical 01-[employer] PONV (postoperative nausea and vomiting) GERD (gastroesophageal [...] on file 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 Gender Identity Not on file Sexual Orientation [...] Covid-19 Vaccine ( season) 2025 01/26/2021, 01/08/2021 DTaP/Tdap/Td Vaccine (2 - Td or Tdap) [...] this topic Zoster Vaccine Completed 01/25/2025, 10/18/2024 Influenza Vaccine Completed 02/15/2025, , 04/05/2022, Additional history exists Procedures Procedure Name Priority Date/Time Associated Diagnosis Comments CT CHEST WO CONTRAST Schedule Routine, Read Routine (OP Routine) 03/26/2025 7:12 AM CDT Other nonspecific abnormal finding of lung field XR TRANSFER OF OUTSIDE FILMS Routine 03/20/2025 12:00 AM CDT XR SPINE CERVICAL W FLEXION AND EXTENSION 4 VIEWS Schedule Routine, Read Routine (OP Routine) 02/15/2025 8:22 AM CDT Disease of spinal cord, unspecified MRI CERVICAL SPINE WO CONTRAST Schedule Routine, Read Routine (OP Routine) 02/06/2025 7:45 AM CDT Disease of spinal cord, unspecified HEPATITIS C ANTIBODY Routine 12/28/2021 7:29 AM CDT Routine medical exam Need for hepatitis C screening test DEXA AXIAL SKELETON BONE DENSITY 1 OR MORE SITES Schedule Routine, Read Routine (OP Routine) 08/10/2021 11:37 AM 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 CENTER 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 Age-related osteoporosis without current pathological fracture SCREENING MAMMOGRAM BILATERAL W MANUEL Schedule Routine, Read Routine (OP Routine) 08/08/2021 1:14 PM STORAGE CENTER MANAGER Encounter for screening mammogram for malignant neoplasm of breast COLONOSCOPY Routine 10/27/2017 from Last 3 Months or Most Recently Relevant to Health Maintenance Results * CT Chest WO Contrast (03/26/2025 7:12 AM CDT) Anatomical Region Laterality Modality Body N/A Computed Tomogra phy 03/26/2025 10:3 6 PM CDT Narrative 03/26/2025 10:45 PM CDT EXAM DESCRIPTION: CT CHEST WO CONTRAST REASON FOR STUDY: Other nonspecific abnormal finding of lung field Patient had a pre op chest xray done at [place] that showed an abnormality Image will be requested No lung or heart disease Patient has a prior chest CT here 10/19/2024 TECHNIQUE: CT scan of the chest performed without intravenous contrast using helical scanning technique. Reconstructed coronal and sagittal MPR images reviewed. All images stored on PACS. Automated exposure control was used as a dose optimization technique for this examination. COMPARISON: 10/19/2024 FINDINGS: The sensitivity for detection of solid visceral lesions is diminished without the use of intravenous contrast. LUNGS: No nodules or masses. No pneumonia. Stable atelectasis or fibrosis posteromedial right lower lobe. PLEURA: No effusion. No pneumothorax. MEDIASTINUM/EDILBERTO: No identified masses or abnormal nodes. HEART: Heart size is normal with no pericardial effusion. CORONARY ARTERY CALCIFICATION: Absent VASCULATURE: No thoracic aortic aneurysm. AXILLA: No adenopathy. CHEST WALL: No masses. No subcutaneous air. HARDWARE/LINES/TUBES: None. UPPER ABDOMEN: Stable hepatic cysts. Cholecystectomy. MUSCULOSKELETAL: No significant abnormality. OTHER: No other significant abnormality. IMPRESSION: No acute pulmonary process. THIS IS AN ELECTRONICALLY VERIFIED FINAL REPORT 03/26/2025 10:45 PM - Electronically signed by Giancarlo Sousa M.D. KT: CLEMENTE Report ID: [id number] Reading Location: [place] [address] Procedure Note Giancarlo Sousa MD - 03/26/2025 EXAM DESCRIPTION: CT CHEST WO CONTRAST REASON FOR STUDY: Other nonspecific abnormal finding of lung field Patient had a pre op chest xray done at [place] that showed anabnormality Image will be requested No lung or heart disease Patient has a priorchest CT here 10/19/2024 TECHNIQUE: CT scan of the chest performed without intravenous contrastusing helical scanning technique. Reconstructed coronal and sagittal MPR images reviewed. All images stored on PACS. Automated exposure control was usedas a dose optimization technique for this examination. COMPARISON: 10/19/2024 FINDINGS: The sensitivity for detection of solid visceral lesions is diminishedwithout the use of intravenous contrast. LUNGS: No nodules or masses. No pneumonia. Stable atelectasis orfibrosis posteromedial right lower lobe. PLEURA: No effusion. No pneumothorax. MEDIASTINUM/EDILBERTO: No identified masses or abnormal nodes. HEART: Heart size is normal with no pericardial effusion. CORONARY ARTERY CALCIFICATION: Absent VASCULATURE: No thoracic aortic aneurysm. AXILLA: No adenopathy. CHEST WALL: No masses. No subcutaneous air. HARDWARE/LINES/TUBES: None. UPPER ABDOMEN: Stable hepatic cysts. Cholecystectomy. MUSCULOSKELETAL: No significant abnormality. OTHER: No other significant abnormality. IMPRESSION: No acute pulmonary process. THIS IS AN ELECTRONICALLY VERIFIED FINAL REPORT 03/26/2025 10:45 PM - Electronically signed by Giancarlo Sousa M.D. KT: CLEMENTE Report ID: [id number] Reading Location: [id number] us Justin VANESSA IMG CT PROCEDURES Final Resul t * XR Outside Reference (03/20/2025 12:00 AM CDT) Narrative [facility] - 03/29/2025 1:08 PM CDT This order has been auto-finalized and does not contain a result. us Not In File Miscellaneous IMG XR PROCEDURES Munira l Result [facility] * XR Spine Cervical W Flexion And [...] Electronically signed by Chidi Sinclair M.D. TH: Report ID: [id number] Reading Location: [id number] Procedure Note Chidi Sinclair MD - 02/22/2025 [...] Chidi Sinclair M.D. TH: TH Report ID: [id number] Reading Location: [id number] Delmy Monsivais NAIL SPECIALIST IMG XR PROCEDURES [place] Result * [...] CT 10/19/2024. FINDINGS: ALIGNMENT: Mild anterolisthesis C3-C4. Swfp-ct-dqlaphci retrolisthesis of C4 over C5. Focal kyphosis [...] DISCS: Severe height loss C4-C5, C5-C6, C6-C7. Jihg-an-jkzqljro height loss of the other levels. CORD: [...] Mc Ferraro M.D. MM: MM Report ID: [id number] Reading Location: [place] [address] Procedure Note Mc Ferraro MD - 02/06/2025 EXAM DESCRIPTION: MRI CERVICAL SPINE WO CONTRAST REASON FOR STUDY: G95.9 Patient falls often, she fell several months ago hitting her head causingneck pain, no surgery TECHNIQUE: Sagittal and Axial imaging includes T1, T2, STIR and gradientecho sequences. COMPARISON: Cervical spine CT 10/19/2024. FINDINGS: ALIGNMENT: Mild anterolisthesis C3-C4. Nwvb-lb-lvmbduqd retrolisthesisof C4 over C5. Focal kyphosis of the cervical spine with apex C4-C5.Alignment is unchanged relative to the prior CT cervical spine. VERTEBRAE: No compression deformity is identified. Mild degenerativeheight loss of the C4 vertebral body. There is type 1 Modic endplate changes ofthe opposing C5-C6, C6-C7 vertebral bodies. Mild type 2 Modic endplatechanges at C4-C5. DISCS: Severe height loss C4-C5, C5-C6, C6-C7. Rzep-ol-eotztuzf heightloss of the other levels. CORD: Normal [...] Mc Ferraro M.D. MM: MM Report ID: [id number] Reading Location: [place] [address] Delmy Monsivais NAIL SPECIALIST IMG MRI PROCEDURES Fin al Result * Hepatitis C antibody (12/28/2021 7:29 [...] last revised on 2019. Testing performed by: [facility], [address] [place] [address], [place]., [address] Blood 12/28/2021 7:29 AM CDT 12/28/2021 2:35 PM CDT Mirella Strickland MD LAB MICROBIOLOGY - GE NERAL ORDERABLES Final Result RUSTY FRENCH EUCLID [address] [facility] Department [place] [employer] [place] [address] * Dexa Axial Skeleton Bone Density 1 or 2 Site (08/10/2021 11:37 AM STORAGE CENTER MANAGER) Anatomical Region Laterality Modality Body N/A Other 08/10/2021 4:18 PM STORAGE CENTER MANAGER Narrative 08/10/2021 4:43 PM STORAGE CENTER MANAGER EXAM DESCRIPTION: DEXA AXIAL SKELETON BONE DENSITY 1 OR MORE SITES REASON FOR STUDY: 60 year old postmenopausal female with given history of age related osteoporosis without current pathological fracture. 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 MD: Report ID: [id number] Reading Location: [place] [address] Procedure Note Hebert Burkett MD - 08/10/2021 EXAM DESCRIPTION: DEXA AXIAL SKELETON BONE DENSITY 1 OR MORE SITES REASON FOR STUDY: 60 year old postmenopausal female with givenhistory of age related osteoporosis without current pathological fracture. Wood Machine Carver/Model: The Other [employer] SL (S/N [id number]) CLINICAL INFORMATION: Current height: 63.3 inches Maximum [...] by Hebert Burkett M.D. MD: Report ID: [id number] Reading Location: [place] [address] us Soo Arroyo NAIL SPECIALIST IMG DXA PROCEDURES Final Resul t * Screening Mammogram Bilateral W Manuel (08/08/2021 1:14 PM STORAGE CENTER MANAGER) Anatomical Region Laterality Modality Breast Bilateral Mammography 08/10/2021 9:04 AM STORAGE CENTER MANAGER Impressions 08/10/2021 9:04 AM STORAGE CENTER MANAGER There is no mammographic evidence of malignancy. A 1 year screening mammogram is recommended. BI-RADS: 1 - Negative. The patient has been or will be contacted. The patient will be entered into a reminder system with a target due date of 1 year for her next mammogram. Electronically signed by: Hebert Burkett M.D. Narrative 08/10/2021 9:04 AM STORAGE CENTER MANAGER EXAMINATION: SCREENING MAMMOGRAM BILATERAL W MANUEL ORDERING [...] been no suspicious interval change. Soo Arroyo NP IMG MAMMO PROCEDURES Final Res ult * Colonoscopy (10/27/2017) Anatomical Region Laterality Modality Other Historical Provider ENDOSCOPY PROCEDURES Mun[place] l Result from Last 3 Months or Most Recently Relevant to Health Maintenance Insurance [facility] [id number] Advance Directives For more information, please contact: [phone] * Full Code (Latest Code Status on File) Date Activated Date Inactivated Comments 12/21/2021 9:48 AM 12/21/2021 6:35 PM Care Teams Real Estate Intern Relationship Specialty Start Date End Date Justin Kessler PA [address] [place] [address] PCP - General Family Practice 03/17/23 Miscellaneous, Not In File 10/20/24
--- OUTSIDE RECORDS SUMMARY | 2025-04-03 02:04 | XMS_ITS | Data Portability ---
Author Organization [facility] ALLENGabriela Address [address] [facility] [place] [address] Care Team Providers Care Program Counselor Name Role Phone DAVIE KESSLER Primary Care Provider Assessment No assessment recorded. Plan of Treatment Reminders Order Date Submit Date Provider Last Modified By Organization Details Last Modified Time Details Appointments None recorded. Lab None recorded. Referral neurologic al surgeon referral 2024 025 HOLLI Coon MD, [address] [facility] [facility] [address], [facility] [address], [place], [address], 10:18:10 pain management referral 2024 025 kalyn [facility], [facility] [place], [address], 11:23:14 Procedures None recorded. Surgeries None recorded. Imaging XR, ribs, unilateral 2024 025 [facility], [address] [place], [address], 23:41:12 Medication Orders None recorded. Patient TargetsNo targets recorded. Patient Instructions Encounter Date Encounter Id Patient Instructions Last Modified By Organization Details Last Modified Time 12/04/2024 [id number] A healthy lifestyle: care instructions [email or web address] Not available 12/04/2024 19:33:06 12/24/2024 [id number] A healthy lifestyle: care instructions jnanney Not available 12/24/2024 12:37:40 01/07/2025 [id number] A healthy lifestyle: care instructions omer Not available 01/07/2025 15:09:39 Reason for Referral Pain Management Referral for Lumbar radiculopathy Referring Physician: Davie Kessler [facility], Encounter Date: 12/04/2024 Neurological Surgeon Referra l for Cervical radiculopathy Referring Physician: Davie Kessler [facility], Encounter Date: 12/24/2024 Results Created Date Observation Date Name Description Value Unit Range Abnormal Flag Note LastModifiedBy Organization Detail LastModifiedTime 11/30/1911/28/2024 MRI, brain + brain stem, w/wo contr ast No observ ation record ed. [address], [address], 11/29/2024 11:58:11 11/30/19 25 11/28/2024 MRI, lumba r spine , w/wo contr ast No observ ation record ed. [address], [address], 11/29/2024 11:58:12 12/01/19 25 11/22/2024 CT, head, w/o contr ast No observ ation record ed. [address] [place], [address], 11/30/2024 10:09:19 12/31/19 25 12/24/2024 XR, ribs, unila teral No observ ation record ed. [address] [place], [address], 01/01/2025 13:53:59 02/07/2002/06/2025 MRI, cervi mal spine , w/o contr ast No observ ation record ed. [address] [place], [address], 02/06/2025 12:23:26 02/23/20 25 02/15/2025 XR, cervi mal spine No observ ation record ed. [address] [place], [address], 02/22/2025 12:35:39 03/20/20 25 03/20/2025 XR, chest No observ [facility]ion [facility] [address], [place], [address], 03/21/2025 09:10:36 03/26/20 25 03/26/2025 CT, chest , w/o contr ast No observ ation record ed. [address] [place], [address], 03/27/2025 16:31:50 Result Notes None recorded. Problems No Known Problems Procedures Surgical History Date Name Laterality Status Provider Name and Address Organization Details Recorded Time 08/10/19 23 Date of Last Mammogram completed Lisette Mirza MA [facility] 11/15/2023 10:48:22 07/12/19 23 Date of Last Pap Smear completed RASTA Macdonald [facility] 07/12/2022 15:22:59 Tubal Ligation completed RASTA Dolan [facility] 04/05/2022 10:06:32 laparoscopy completed Latoya Taylor MA MD Margaux [facility] 04/05/2022 10:06:54 tonsillectomy completed RASTA Dolan [facility] 04/05/2022 10:07:04 cholecystectomy completed Latoya Taylor MA [facility] 04/05/2022 10:07:16 Imaging Results None recorded. Procedure [...] PLEASE SEE ATTACHED FOR DETAILED DIRECTION S 03/22 completed Not Available Not Available Not Available [...] completed Not Available Not Available Not Available B Complex 100 active Not Available Not Available Not Available ranolazine [...] and Address Organization Details Last Updated DateTime 07/01/202 5 160.02 cm 27 kg/m2 37648.1 4 g 18 /min 96 % 96 % 91 /min 123/84 mm[Hg] Lisette Mirza MA [facility] 19:02:48 Date Recorded Systolic And Diastolic Provider Name and Address Organization Details Last Updated DateTime 12/24/2024 118/68 mm[Hg] Davie Kessler PA-C Attn: Accounting,[address] [facility], [place], [address], [facility] 12/24/2024 12:36:35 Date Recorded Body height Body mass index (BMI) Body weight Oxygen saturation Oxygen saturation in Arterial blood by Pulse oximetry Heart rate Provider Name and Address Organization Details Last Updated DateTime 160.02 cm 27.5 kg/m2 39351.8 2 g 97 % 97 % 86 /min Lisette Mirza MA [facility] 12:07:52 Date Recorded Body height Body mass index (BMI) Body weight Oxygen saturation Oxygen saturation in Arterial blood by Pulse oximetry Heart rate Systolic And Diastolic Provider Name and Address Organization Details Last Updated DateTime 160.02 cm 27.3 kg/m2 03090.2 2 g 93 % 93 % 98 /min 161/90 mm[Hg] Caprice Lin MA [facility] 14:28:26 Date Recorded Body height Body mass index (BMI) Body weight Oxygen saturation Oxygen saturation in Arterial blood by Pulse oximetry Heart rate Systolic And Diastolic Provider Name and Address Organization Details Last Updated DateTime 5 160.02 cm 27.5 kg/m2 87902.8 2 g 97 % 97 % 83 /min 126/84 mm[Hg] TONYA Koroma [facility] 10:32:48 Social History Question Answer Notes LastModified by Organizat ion Details LastModified Time Tobacco Smoking Status Never Smoker Latoya Taylor MA null, [facility] 04/05/2022 10:03:41 Do You Have An Advance [...] Date Of Your Most Recent Tobacco Screening? 03/22/2025 [email or web address] Information not available 03/22/2025 How Many Children Do You Have? 4 [...] Provided? No Information not available 06/22/2022 Sex: Female Functional Status Question Answer Note LastModified by [...] able to care for yourself independently? Yes [facility] Information not available 04/05/2022 What is your occupation? [employer] Information not available 04/05/2022 What is your exercise level? None [facility] Information not available 04/05/2022 Mental Status Question Answer Note LastModified by Organizat ion Details LastModified Time Do you feel stressed (tense, restless, nervous, or anxious, or unable to sleep at night)? [id number] stressed from work [facility] Information not available 04/05/2022 Family History Relationship Description Onset Age of this Age Resolved Age Notes LastModified by Organization Details LastModified Time Father No current problems or disability [email or web address] Not available 06/22 18:02:19 Mother No current problems or disability [email or web address] Not available 06/22 18:02:19 Medical History Condition Response Coronary Artery Disease N Other N Atrial Fibrillation N High Blood Pressure N Depression N COPD N Blood Clots N Anxiety Disorder N Muscle, Joint, or Bone Problems N Acid Reflux (GERD) N Cancer N Stroke N Headaches N Kidney or Bladder Problems N Eating Disorder N Skin Problems N Asthma N Allergies N Substance Abuse N Hepatitis N ADHD N High Cholesterol N Liver Disease N Schizophrenia N Thyroid Problems N GI Problems N Anemia N Heart Attack ([place]) N Diabetes N Seizures/Epilepsy N Osteoporosis N Heart Failure N Gynecological History Statement/Question Response Date of [...] Influenza, split virus, quadrivalent, PF 1 completed RA[place], [place] [facility] 04/05/2022 10:36:23 COVID-19, mRNA, LNP-S, PF, 30 mcg/0.3 mL dose 1 [place] RA[place] [facility] 04/05/2022 10:36:23 COVID-19, mRNA, LNP-S, PF, 30 mcg/0.3 mL dose 1 completed iLsette Mirza [place] [facility] 04/05/2022 10:36:23 zoster recombinant 5 completed RASTA [place] [facility] 10/22/2024 09:23:45 Influenza, split virus, quadrivalent, PF 7 completed Not Available [facility] 03/22/2025 10:19:36 pneumococcal polysaccharide PPV23 3 completed Not Available [facility] 03/22/2025 10:19:36 Tdap 4 completed Not Available [facility] 03/22/2025 10:19:36 zoster recombinant 5 completed RASTA [place] [facility] 01/28/2025 10:20:10 Influenza, split virus, quadrivalent, PF 2 completed Lisette Mir[place] [facility] 04/05/2022 11:30:19 Influenza, split virus, quadrivalent, PF 3 completed Awa Solorio [place] [facility] 03/22/2023 19:36:27 Influenza, split virus, quadrivalent, PF 5 completed Lisette Mir[place] [facility] 02/15/2025 12:22:12 Past Encounters Encounter ID Performer Location Encounter Start Date Encounter Closed Date Diagnosis/Indication Diagnosis SNOMED-CT Code Diagnosis ICD10 Code Diagnosis IMO Codes Diagnosis Note [id number] JUDI Cruz [address] [facility] [place] [place] [address] 04/05/2022 09:49:14 04/05/2022 11:19:12 Adult health examination 886806902 Z00.00 Family his tory of diabetes mellitus 269334790 Z83.3 Dysuria 43361532 R30.0 Administra tion of influenza vaccine 99728474 Z23 [id number] JUDI Cruz [address] [place] [address] 06/22/2022 17:59:56 06/23/2022 15:00:20 Recurrent falls 733845629 R29.6 Attention deficit hyperactivity disorder, 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 510882935 F41.8 Overweight 626415837 E66 .3 [id number] Davie Kessler PA-C [facility] [address] [place] [address] 07/12/2022 15:12:04 07/12/2022 16:06:20 Long-term drug therapy 464542131 Z79.899 Post-acute COVID-19 1119 687976 U09.9 Attention deficit hyperactivity disorder, predominantly inattentive type 78426316 F90.0 [id number] Davie Kessler PA-C [facility] [address] [place] [address] 07/28/2022 11:50:56 07/28/2022 12:38:14 Acute maxillary sinusitis 90211803 J01.01 Overweight 581566589 E66 .3 [id number] Davie Kessler PA-C [facility] [address] [place] [address] 09/24/2022 16:27:55 09/27/2022 12:14:19 Fatigue 61295571 R53.83 Generalize d anxiety disorder 01816057 F41.1 [id number] Davie Kessler PA-C [facility] [address] [place] [address] 03/07/2023 11:59:10 03/08/2023 14:15:31 Albumin below reference range 187201333 R77.0 Increased frequency of urination 733469953 R35.0 Mixed anxi ety and depressive disorder 251753074 F41.8 [id number] JUDI Cruz [facility] [address] [place] [address] 03/22/2023 18:35:36 03/29/2023 15:36:00 Costal chondritis 90058869 M94.0 Administra tion of influenza vaccine 40759725 Z23 [id number] Davie Kessler PA-C [facility] [address] [place] [address] 06/24/2023 14:53:09 06/27/2023 16:17:24 Neck pain 42440092 M54.2 Overweight 626537821 E66 .3 [id number] Davie Kessler PA-C [facility] [address] [place] [address] 07/08/2023 15:54:50 07/12/2023 14:41:53 Hypoalbuminemia 714010279 E88.09 [id number] Gary Gifford MD [facility] [address] [place] [address] 11/15/2023 10:21:11 11/16/2023 09:18:15 Closed fracture of bone of knee joint 391971215 S82.892A Overweight 545320447 E66 .3 [id number] Davie Kessler PA-C [facility] [address] [place] [address] 01/23/2024 15:24:29 01/24/2024 08:17:34 Adult attention deficit hyperactivity disorder 021368252 F90.0 Overweight 854961721 E66 .3 [id number] Davie Kessler PA-C [facility] [address] [place] [address] 03/05/2024 16:10:22 03/07/2024 15:15:31 Complex laceration of scalp 697454896 S01.01XD [id number] Gary Gifford MD [facility] [address] [place] [address] 03/26/2024 14:51:32 04/02/2024 10:49:25 Laceration of forehead 691374231 S01.81XD sutures removed Overweight 398126841 E66 .3 [id number] Gary Gifford MD [facility] [address] [place] [address] 04/17/2024 19:02:01 04/18/2024 09:21:58 Middle ear effusion 0557982796 H74.8X1 Overweight 513723931 E66 .3 [id number] Gary Gifford MD [facility] [address] [place] [address] 06/05/2024 13:51:38 06/08/2024 10:34:43 Sore throat 561980864 J02.9 Overweight 246853238 E66 .3 Acute bron chitis with bronchospasm 66882273 J20.8 [id number] Gary Gifford MD [facility] [address] [place] [address] 09/03/2024 15:15:27 09/04/2024 08:45:48 Urinary symptoms 639744479 R30.0 Acute otitis externa 302 62886 H60.513 Body mass index 20-24 - normal 579436631 Z68.24 [id number] Gary Gifford MD [facility] [address] [place] [address] 10/23/2024 17:57:01 10/24/2024 10:42:25 Traumatic brain injury 250547060 S06.9X1A 74823082 Overweight in adulthood with body mass index of 25 or more but less than 30 736975709 Z68.26 369944 [id number] Gary Gifford MD [facility] [address] [place] [address] 11/05/2024 16:05:18 11/06/2024 10:19:01 Hemorrhage into subarachnoid space of neuraxis 794907552 I60.9 4394 Intermittent vertigo 103 363017 R42 131987 Overweight in adulthood with body mass index of 25 or more but less than 30 623990828 E66.3 Z68.26 8368473672 [id number] Gary Gifford MD [facility] [address] [place] [address] 12/04/2024 18:41:52 12/05/2024 17:39:39 Traumatic brain injury 031057158 S06.9X1S 09725082 Lumbar radiculopathy 128 827975 M54.16 80989 Overweight in adulthood with body mass index of 25 or more but less than 30 608529058 E66.3 Z68.27 9779573159 [id number] Gary Gifford MD [facility] [address] [place] [address] 12/24/2024 11:59:20 12/25/2024 16:36:08 Cervical radiculopathy 89643457 M54.12 497959 Rib pain 166489540 R07.8 1 [id number] Overweight in adulthood with body mass index of 25 or more but less than 30 154764392 Z68.27 057092 [id number] Gary Gifford MD [facility] [address] [place] [address] 01/07/2025 14:20:33 01/08/2025 09:42:48 History of traumatic brain injury 5334712371 9100 Z87.820 335953 Overweight in adulthood with body mass index of 25 or more but less than 30 160830030 E66.3 Z68.27 4139746798 [id number] Gary Gifford MD [facility] [address] [place] [address] 02/15/2025 11:57:29 02/18/2025 10:50:29 Immunization due 263289403 Z23 3744401 [id number] Davie Kessler PA-C [facility] [address] [place] [address] 03/22/2025 10:17:18 03/26/2025 14:39:15 Nerve root disorder 21249927 M54.12 600555 Overweight in adulthood with body mass index of 25 or more but less than 30 103152634 E66.3 Z68.27 4383968289 Health Concerns Section Related Observation LastModified by Organization Detai ls LastModified Time None Recorded Concern Status LastModified by Organization Details LastModified Time None Recorded Advance Directives Directive N: Payers Insurance Date Sequence Insurance Name Policy Number Policy Spear Covered Member ID Spear Member ID Guarantor Name 03/26/2025 1 [facility] - OPEN ACCESS III (PPO) [id number] Bouchra Stanton [id number] Bouchra Stanton 12/04/2024 1 *SELF PAY* Hermilo Stanton 03/22/2025 1 [employer] (HMO) [id number] Bouchra Stanton [id number] Bouchra Stanton Notes Date Note Type Note Provider Name and Address Organization Details Recorded Time 12/04/2024 text/html [facility]...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 also needs an xray of left ribs after fall in the bathroom.. Davie Kessler PA-C Attn: Accounting,[address] [facility], [place], [address], [facility] 12/24/2024 12:37:56 01/07/2025 text/html ROS as noted in the HPI paperwork re submitted Davie Kessler PA-C Attn: Accounting,[address] [place], [address], [facility] 01/07/2025 15:10:18 03/22/2025 text/html ROS as noted in the [facility] paperwork vs cervical radiculopathy...s urgery upcoming Davie Kessler PA-C Attn: Accounting,[address] [place], [address], [facility] 03/22/2025 11:02:11 OBGyn Episode No OBEpisode recorded.
--- OUTSIDE RECORDS SUMMARY | 2025-04-03 02:04 | XMS_ITS | Encounter Summary ---
Author Organization [facility] Address [address] [place] [address] Phone Care Team Providers Care De Icer Name Role Phone Justin Jacinto MD Primary Care Provider [phone] Justin Jacinto MD Primary Care Provider [phone] Mirella Strickland MD Primary Care Provide r Justin Kessler Primary Care Provider [phone] Miscellaneous, Not In File Unavailable Unava ilable Encounter Details Date Type Department Care Team (Late st Contact Info) Description 10/04/2017 Orders Only [facility] ProviderMarco MD [address] [place] [address] Social History Tobacco Use Types Packs/Day Years Used Date Smoking Tobacco: Never Alcohol Use Standard Drinks/Week Comments Yes 0 (1 standard drink = 0.6 oz pur e alcohol) Comments No Sex and Gender Information Value Date Recorded Sex Assigned at Not on file 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 Gender Identity Not on file Sexual Orientation [...] documented as of this encounter Care Teams De Icer Relationship Specialty Start Date End Date Justin Jacinto MD PCP - General 09/03/16 12/09/21 Justin Jacinto MD [address] [facility] [address] [place] [address] PCP - General 12/10/21 12/22/21 Mirella Strickland MD [address] [place] [address] [address] [place] [address] PCP - General Family Medicine 12/23/21 03/16/23 Justin Kessler PA [address] [place] [address] PCP - General Family Practice 03/17/23 Miscellaneous, Not In File 10/20/24 documented as of this encounter
--- OUTSIDE RECORDS SUMMARY | 2025-04-03 02:04 | XMS_ITS | Encounter Summary ---
Author Organization [facility] Address [address] [facility] [address] [place] [address] Care Team Providers Care Freight Hustler Name Role Phone Justin Jacinto MD Primary Care Provider [phone] Justin Jacinto MD Primary Care Provider [phone] Justin Jacinto MD Primary Care Provider [phone] Mirella Strickland MD Primary Care Provide r Justin Kessler Primary Care Provider [phone] Miscellaneous, Not In File Unavailable Unava ilable Encounter Details Date Type Department Care Team (Late st Contact Info) Description 05/14/2011 Orders Only [facility] Health Information Management [address] [place] [address] Justni Jacinto MD [address] [place] [address] [place] [address] Social History Tobacco Use Types Packs/Day Years Used Date Smoking Tobacco: Never Assessed Comments Unknown Sex and Gender Information Value Date Recorded Sex Assigned at Not on file 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 Gender Identity Not on file Sexual [...] documented as of this encounter Care Teams Freight Hustler Relationship Specialty Start Date End Date Justin Jacinto MD PCP - General 09/03/16 12/09/21 Justin Jacinto MD PCP - General 07/08/06 09/02/16 Justin Jacinto MD [address] [facility] [address] [place] [address] PCP - General 12/10/21 12/22/21 Mirella Strickland MD [address] [place] [address] [address] [place] [address] PCP - General Family Medicine 12/23/21 03/16/23 Justin Kessler PA [address] [place] [address] PCP - General Family Practice 03/17/23 Miscellaneous, Not In File 10/20/24 documented as of this encounter
--- OUTSIDE RECORDS SUMMARY | 2025-04-03 02:04 | XMS_ITS | Encounter Summary ---
Author Organization [facility] Address [address] [place] [address] Care Team Providers Care Meteorologist In Charge Name Role Phone Justin Jacinto MD Primary Care Provider [phone] Justin Jacinto MD Primary Care Provider [phone] Mirella Strickland MD Primary Care Provide r Justin Kessler Primary Care Provider [phone] Miscellaneous, Not In File Unavailable Unava ilable Encounter Details Date Type Department Care Team (Late st Contact Info) Description 11/16/2019 Telephone [facility] [address] [place] [address] Apolonia Crawford, RT Social History Tobacco Use Types Packs/Day Years Used Date Smoking Tobacco: Never Smokeless Tobacco: Never Alcohol Use Standard Drinks/Week Comments Yes 0 (1 standard drink = 0.6 oz pur e alcohol) PHQ-2 Answer Date Recorded PHQ-2 Score 0 01/26/2019 Comments No Sex and Gender Information Value Date Recorded Sex Assigned at Not on file 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 Gender Identity Not on file Sexual Orientation Not on file documented as of this encounter Plan of Treatment Not on file documented as of this encounter Visit Diagnoses Not on filedocumented in this encounter Additional Health Concerns Infection Onset Date Last Indicated Resolved Time COVID: Suspected 03/19/2023 03/19/2023 03/19/2023 6:36 PM CDT documented as of this encounter Care Teams Meteorologist In Charge Relationship Specialty Start Date End Date Justin Jacinto MD PCP - General 09/03/16 12/09/21 Justin Jacinto MD [address] [facility] [address] [place] [address] PCP - General 12/10/21 12/22/21 Mirella Strickland MD [address] [place] [address] [address] [place] [address] PCP - General Family Medicine 12/23/21 03/16/23 Justin Kessler PA [address] [place] [address] PCP - General Family Practice 03/17/23 Miscellaneous, Not In File 10/20/24 documented as of this encounter
--- OUTSIDE RECORDS SUMMARY | 2025-04-03 02:04 | XMS_ITS | Encounter Summary ---
Author Organization [facility] Address [address] [facility] [facility] [place] [address] Phone Care Team Providers Care Life Insurance Sales Agent Name Role Phone Justin Jacinto MD Primary Care Provider [phone] Reason for Visit * Reason Comments Medication Refill Encounter Details Date Type Department Care Team (Late st Contact Info) Description 08/15/2021 Refill [facility] - G[facility]enterology - [place] [address] [place] [id number] Christina Talbert Rohini, PAC [address] [place] [address] Medication Refill Social History Tobacco Use Types Packs/Day Years Used Date Smoking Tobacco: Former Cigarettes 0 Q uit: 10/20/1970 Smokeless Tobacco: Never Comments:only [...] 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 No / Unsure 07/27/2021 11:35 AM FIELD SPECIALIST documented as of this encounter Miscellaneous Notes * Telephone Encounter - Frances Cartwright RN - 08/17/2021 1:48 PM CDT Medication refilled and signed per [facility] chronic medication standing order for pediatric and [...] 19 Confirmed 03/24/2022 03/24/2022 022 12:16 AM FIELD SPECIALIST documented as of this encounter Care Teams Life Insurance Sales Agent Relationship Specialty Start Date End Date Justin Jacinto MD [address] [facility] [address] [place] [address] PCP - General Internal Medicine 10/27/17 documented as of this encounter
--- OUTSIDE RECORDS SUMMARY | 2025-04-03 02:04 | XMS_ITS | Clinical Summary ---
Author Organization [facility] Address [address] [place] [address] Phone Care Team Providers Care Nursing Program Manager Name Role Phone Justin Jacinto MD Primary Care Provider [phone] Allergies No known active allergies Medications otherIndications [...] 0 Q uit: 10/20/1970 Smokeless Tobacco: Never Tobacco [...] Industry Job Start Date Job End Date [employer] Not on file Not on file Not [...] 160 cm (5' 3) 07/10/2021 11:00 AM [employer]OE TRIMMER Body Mass Index 24.62 07/10/2021 11:00 AM SHOE TRIMMER Plan of Treatment Health Maintenance Due Date [...] patient's age to complete this topic Insurance [facility] Care Teams Nursing Program Manager Relationship Specialty Start Date End Date Justin Jacinto MD [address] [place] [place] [address] PCP - General Internal Medicine 10/27/17
--- NOTE | 2025-04-03 06:59 | WPDANESEPPF ---
Anes - Initial Pre Proc Eval Procedure: Operation Date: 04/03/25 07:30 Proposed Procedures p Anterior Cervical Discectomy and Fusion C3-4, C4-5 - Edith Leonard MD Date/Time: 04/03/25 06:59 Surgeon: Edith Leonard MD Pre Op Diagnosis: Cerv Myelopathy, Cerv Spondylosisthesis Patient Data Age: 64 Gender: F Height: 1.6 m Weight: 70.6 kg Last Vital Signs Temp 36.9 C 03/20/25 10:40 Pulse 80 03/20/25 10:40 Resp 18 03/20/25 10:40 BP 121/77 03/20/25 10:40 Pulse Ox 96 03/20/25 10:40 O2 Del Method Room Air 03/20/25 10:40 Allergies Allergy/AdvReac Type Severity Reaction Status Date / Time No Known Allergies Allergy Verified 03/20/25 10:16 Home Medications ?Medication ?Instructions ?Recorded ?Confirmed ?Type bupropion HCl 300 mg 24 hr tablet, 300 mg PO DAILY 07/24/24 03/20/25 History extended release sertraline 100 mg tablet 100 mg PO DAILY 07/24/24 03/20/25 History ofloxacin 0.3 % eye drops 2 drp otic (ear) TID otitis 11/28/24 03/20/25 Rx externa right #10 mL cholecalciferol (vitamin D3) 125 125 mcg PO DAILY 03/20/25 03/20/25 History mcg (5,000 unit) capsule lidocaine 4 % topical patch 1 patch topical DAILY PRN pain 03/20/25 03/20/25 History vitamin B complex (Vitamins B 1 cap PO DAILY 03/20/25 03/20/25 History Complex capsule) Patient hx anesthesia problems: none Family hx anesthesia problems: none Results Review: All pre-operative results and documents have been reviewed as part of the pre-operative evaluation. [facility] Past Medical History Medical History (Updated 04/03/25 @ 06:59 by Justin Jimenez MD) Anxiety Overweight Osteoporosis GERD (gastroesophageal reflux disease) Surgical History Surgical History History of cholecystectomy History of tonsillectomy Family History Family History Father Hypertension Sibling Diabetes mellitus Hypertension Sibling Breast cancer Diabetes mellitus Social History Social History Smoking status: Never smoker Alcohol intake: current Drinks per week: 1 Substance use: never Substance use type: does not use Living arrangements: with friend(s) Spiritual care concerns: No Anes - Eval Final PreProcedure Day of Procedure 04/03/25 06:59 Patient weight: overweight Heart: regular rate and rhythm Lungs: clear to auscultation Airway: Mallampati scale class II Neurological: alert and oriented Last oral intake: >/= 8 hours ASA classification: II Emergent: no Anesthetic plan: proceed Anesthesia type and monitoring: general ETT and standard monitoring Results Review: All pre-operative results and documents have been reviewed as part of the pre-operative evaluation. Informed Consent: The patient's anesthetic plan and its attendant risks and benefits were discussed with the patient/family/POA. Questions were solicited and answers provided to the satisfaction of the patient/family/POA.
[2025-04-03] MEDS: LACTATED RINGERS 1,000 ML 30 ML IV CONT ×2 (07:00→10:02)
--- NOTE | 2025-04-03 07:17 | WPDHPUPDATE1 ---
History and Physical Update Update Date/Time: 04/03/25 07:17 History and Physical has been reviewed, including an updated exam of the patient. There are NO changes in the patient's condition. Risks, benefits, and alternatives have been discussed and questions answered. Patient agrees to proceed with procedure.
[2025-04-03] MEDS: ceFAZolin 2 GM in SODIUM CHLORIDE 0.9% IV 50 ML 100 ML IVPB (07:30)
--- NOTE | 2025-04-03 10:05 | P.OP_ITS ---
Procedure Note - Detailed Date of Procedure 04/03/25 Pre-op Diagnosis Cerv Myelopathy, Cerv Spondylosisthesis Post-op Diagnosis Same Procedure Performed 1. Anterior cervical discectomy and foraminotomy at C3-4, C4-5 2. Anterior interbody placement at C3-4, C4-5 3. Arthrodesis of C3-4, C4-5 4. Preparation and placement of osteopromotive allograft for arthrodesis 5. Utilization of intraoperative C-Arm XR image guidance 6. Microscopic dissection Surgeon Edith Leonard MD [employer] Francis Anesthesia General Description of Procedure The patient was taken to the operating room and was transferred to the operating table in the supine position. General anesthesia was induced. Pressure points were appropriately padded, and compression devices were placed on the patient's calves. A shoulder roll was placed. The previous surgical site was marked, and the appropriate level was confirmed with the C-arm XR imaging. The patient was prepped and draped in usual sterile fashion. Perioperative antibiotics were given. Time out was performed. Local anesthesia was injected into the planned i ncision site. Incision was made with a 10-blade scalpel. The subcutaneous tissue was undermined above the platysma with the Metzenbaum scissors. The platysma was sharply opened horizontally. Bleeding was controlled with the bipolar. The avascular plane to the spine was dissected sharply. The anterior border of the spine was located and exposed with sharp and blunt dissection. A spinal needle was used to localize the C3-4 disc space just above the cervical plate; this was confirmed on fluoroscopy. The longus coli muscles were elevated bilaterally with a bovie. Once the C3, C4, and C5 vertebral bodies and adjacent intervertebral discs were adequately exposed, self-retaining retractors were placed. Jellico pins were placed in the C3 and C4 vertebral bodies and were distracted. A 15-blade scalpel was used to incise the C3-4 disc. A combination of Kerrisons, currettes, and pituitary instruments were used to remove each disc. The microscope was draped and brought into the surgical field. The removal of disc and osteophytes were completed using a high-speed drill, multiple Kerrison punches, and angled currettes. The posterior longitudinal ligament was opened with a currette and kerrison rongeurs until the neuroforamen bilaterally were adequately decompressed. Interbody trial instruments were used to determine the appropriate size for the prosthetic vertebral interbody cage. Hemostasis was achieved in the disc space with floseal and cottonoid patties. A 7mm cage was packed with Magnetos and placed at C3-4. This process was repeated at the C4-5 disc. The disc was removed as described above, and the posterior longitudinal ligament was opened until the neuroforamen bilaterally were adequately decompressed. Interbody trial instruments were used to determine the appropriate size for the prosthetic vertebral interbody cage. Hemostasis was achieved in the disc space. A 5mm cage was packed with Magnetos and placed in the C4-5 disc space. Osteophytes over the vertebral bodies were removed with a Leksell and high-speed drill. A 26mm plate was placed over the vertebral bodies and secured with 14mm screws. Accurate hardware placement was confirmed with fluoroscopy. The surgical cavity was copiously irrigated; appropriate hemostasis was verified; and there was no evidence of dural tear/CSF leak. The platysma was closed with interrupted 3-0 Vicryl, followed by interrupted 3-0 Vicryl for the dermis, and 4-0 running subcuticular monocryl for the skin. Dermabond was placed. The patient was extubated, transferred to the bed, and taken to the PACU without incident. Billing codes: 89945, 00485, 76100b4, 05068, 11933 Estimated Blood Loss 20 Drains No Packing No Pathology None sent Complications No immediate complications Condition Stable Disposition PACU [facility] Billing Surgery - Charge Forward: Surgery Billing
[2025-04-03] MEDS: fentaNYL CITRATE INJ (*CRX) 100 MCG/2 ML VIAL 25 MCG IV PUSH ×5 (10:12→11:53)
== END 2025-04-03 12:33 | disposition home or self-care (01) ==
PROVIDERS: PCP Physician Assistant; Visit Provider Neurological Surgery
PROC: (CPT 63030; principal; 2025-04-03 07:30)
DX: M43.12 Spondylolisthesis, cervical region (principal); M25.78 Osteophyte, vertebrae; F41.9 Anxiety disorder, unspecified; M81.0 Age-related osteoporosis without current pathological fracture; K21.9 Gastro-esophageal reflux disease without esophagitis; Z98.890 Other specified postprocedural states; Z90.49 Acquired absence of other specified parts of digestive tract; Z98.1 Arthrodesis status; Z80.3 Family history of malignant neoplasm of breast
CPT/HCPCS: 22551; 22552; 22853 ×2; 36415; 86850; 86900; 86901; 99199; J0690; C1713; J0330; J2003; J2250; J2371; J2405; J2704; J3010; J7120